=== PATIENT | female | born 1945 | race Caucasian/White ===

== ENCOUNTER 2022-05-19 16:13 | Inpatient (IN) | payer OTHER, SELFPAY ==
[2022-05-20] VITALS (9 sets, daily range): BP systolic 137–151; BP diastolic 57–67; PULSE 62–89; RESP 16–20; TEMP 36.6–37; O2SAT 91–96
--- NOTE | 2022-05-20 05:29 | PC.NURSE ---
Addendum entered by Soraya Regan RN 05/20/22 05:56: Pt NPO since 23405/19/22 Original Note: [id number] Pt slept well during night, denied pain, sob with activity/ambulation. Pt sats decreased to 82% with ambulation to br, bounced back to low 90's once at rest. required 1 LPM NC during noc to maintain sats >88%. Pt weight obtained using standing scare, weight-119.7#, unable to document in interventions at this time.
[2022-05-20] MEDS: LEVOTHYROXINE 50 MCG TABLET PO (06:37)
[2022-05-20] MEDS: OMEPRAZOLE 20 MG CAPSULE DR PO ×2 (06:38→17:29)
[2022-05-20] MEDS: ALBUTEROL SULFATE 2.5 MG/3 ML VIAL.NEB NEB ×2 (06:44→23:47)
[2022-05-20 06:48] LABS: Slide Review Reflex No
[2022-05-20 06:53] LABS: Hematocrit 34.4 % (33.0-51.0); Hemoglobin* 11.1 gm/dL (12.0-16.0); Immature Granulocytes Abs Auto 0.05 K/uL (0.00-0.30); Lymphocytes Percent Auto 16.6 % (20-44); Mean Corpuscular HGB Conc 32 gm/dL (32-36); Mean Corpuscular Hemoglobin 30 pg (26-34); Mean Corpuscular Volume 94 fL (80-100); Monocytes Percent Auto 2.3 % (0.0-11.0); Neutrophils Percent Auto 80.2 % (42.0-72.0); Platelet Count* 392 K/uL (140-440); RDW Coefficient of Variation % 13.3 % (11.5-15.5); Red Blood Count 3.65 m/uL (4.00-5.20); White Blood Count* 5.29 K/uL (4.50-11.00)
[2022-05-20 07:28] LABS: INR 2.57 (0.91-1.10)
[2022-05-20 07:31] LABS: C Reactive Protein* 14.4 mg/dL (0.5-1.0)
--- NOTE | 2022-05-20 07:31 | PM.IMPN1 ---
Progress Note: A&P Assessment and plan (1) Acute on chronic respiratory failure with hypoxia: Status: Acute Assessment and Plan: receive Solu-Medrol IV in the ED last night. Prednisone orally at 40 mg this morning. Will start taper when clinical stability has been achieved and hypoxia resolved continue doxycycline on 1 L nasal cannula O2 reviewed venous blood gas and chest x-ray from yesterday Chest x-ray, VBG and follow-up labs in the morning. 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 follows with pulmonology. 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 Restrictive pattern with mild obstructive pattern on PFTs, 2021. Status: Acute (3) On prednisone therapy: Status: Acute Assessment and Plan: Initial plan from her center mgr had been to decreased to 2.5 mg of prednisone q.o.d.. Right now she is back on 40 mg with a burst and taper likely. I suspect she will need more like 5 mg daily. (4) History of pulmonary embolism: Problem details: First occurrence 10/10, then 2018. Provoked and unprovoked. Chronic anticoagulation. History of DVTs as well. Status: Acute Assessment and Plan: INR 2.5 this morning. Restarting warfarin. No obvious bleeding source. Anticoagulation needed. Hemoglobin stable. (5) Pulmonary alveolar hemorrhage: Status: Resolved Assessment and Plan: Historical. Likely related to granulomatous disease. (6) Paroxysmal A-fib: Problem details: Rate controlled and on anticoagulation Status: Acute Assessment and Plan: Stable. (7) Hypertension: Status: Acute Assessment and Plan: Stable. (8) Hypothyroidism: Status: Acute Assessment and Plan: Stable. (9) Chronic kidney disease: Status: Acute Assessment and Plan: Stable. (10) Iron deficiency anemia: Status: Acute Assessment and Plan: Stable. (11) Aortic stenosis: Problem details: last echo 04/13. Normal EF. Normal right and left ventricular function. Aortic valve is sclerotic. Moderate stenosis. Peak gradient 27 mmHg. Status: Acute Plan No acute exacerbation noted. Time Spent With Patient Total time spent: Thirty-five. Subjective Interval history: Daily Progress Note - Hospital Medicine Day #: 2 CC: Hypoxic respiratory failure, history of interstitial lung disease OVERNIGHT UPDATES FROM STAFF & MED, LAB, IMAGING UPDATES patient reports feeling not much better - coughs with deep breath. no significant wheeze. no fever. we went over the dosing of her prednisone outpatient taper that now appears was not working well for her. HGB from ED was not confirmed on repeat labs. no obvious GI bleeding source. HGB this am is stable. EGD cancelled. warfarin restarted. RN note overnight [id number] Pt slept well during night, denied pain, sob with activity/ambulation. Pt sats decreased to 82% with ambulation to br, bounced back to low 90's once at rest. required 1 LPM NC during noc to maintain sats >88%. Pt weight obtained using standing scare, weight-119.7# Admission Labs and Imaging: White count was 12.2 Hemoglobin was 8.3, inexplicably 11.4 later the same evening CRP was 16.2 Iron deficient with a TIBC of 13, iron 336 Normal electrolytes, normal LFTs. Undetectable troponin Creatinine 1.3 INR 2.7 Venous blood gas was unremarkable, notably pCO2 was only 39 BNP 288 this morning: WBC 5.29 Hemoglobin 11.1 INR 2.57 CRP 14.4 Chest x-ray Cardiomegaly with bilateral interstitial opacities most likely pulmonary edema versus infection. No pleural effusions. Review of Systems: See subjective Cardiac: No new chest pain/pressure/palpitations. Respiratory: no new dyspnea. GI: No abdominal bloating Objective: Vitals: see above Lungs: Clear. No wheezing Cardiac: loud holosystolic murmur; radiates to both axilla. no edema. Disposition/Potential discharge - Likely to return to previous living situation. Total time is 35 minutes with greater than 50% spent in counseling and coordination of care. Exam Const: Vital Signs, click to edit/add: Vital Signs - 24 hr 05/20/22 03:00 05/20/22 05:22 Temperature 97.8 F Pulse Rate [Right Pulse Oximeter] 78 Respiratory Rate 16 18 Pulse Oximetry 96 92 Labs Labs: Laboratory Results - last 24 hr 05/20/22 05/20/22 05:55 05:55 WBC 5.29 RBC 3.65 L Hgb 11.1 L Hct 34.4 MCV 94 MCH 30 MCHC 32 RDW Coeff of Faustino 13.3 Plt Count 392 Neut % (Auto) 80.2 H Lymph % (Auto) 16.6 L [place] % (Auto) 2.3 Eos % (Auto) 0.0 Baso % (Auto) 0.0 Neut # (Auto) 4.20 Lymph # (Auto) 0.90 [place] # (Auto) 0.10 Eos # (Auto) 0.00 Baso # (Auto) 0.00 Abs Immat Gran (auto) 0.05 INR 2.57 H
[2022-05-20 08:17] LABS: Troponin I* < 0.01 ng/mL (0.01-0.04)
[2022-05-20] MEDS: METOPROLOL TARTRATE 100 MG TABLET PO ×2 (08:58→20:17)
[2022-05-20] MEDS: FERROUS SULFATE 325 MG TABLET PO (08:58)
[2022-05-20] MEDS: FOLIC ACID 1 MG TABLET PO (08:58)
[2022-05-20] MEDS: DOXYCYCLINE HYCLATE 100 MG CAPSULE PO ×2 (08:58→20:16)
[2022-05-20] MEDS: predniSONE 20 MG TABLET 40 MG PO (08:59)
[2022-05-20] MEDS: SPIRONOLACTONE 25 MG TABLET PO (09:00)
[2022-05-20] MEDS: dilTIAZem 180 MG CAP (CD) 360 MG PO (09:01)
[2022-05-20] MEDS: LACTATED RINGERS 1000 ML 1,000 ML 75 ML IV (12:09)
[2022-05-20 12:41] LABS: INR 2.28 (0.91-1.10); Prothrombin Time 25.5 Seconds
--- NOTE | 2022-05-20 13:57 | PC.NURSE ---
Pt calm and cooperative with nsg interventions. Voiding adequate amt. LR @75cc continued. Initially NPO for EGD which was cancelled when HGB stabilized today at 11.1. Advanced to Regular diet. Pt denies pain. Stool sample needed for hemoccult per miscellaneous order. Up with SBA of one with walker. Continue plan of care, report will be given to oncoming shift RN.
[2022-05-20 16:42] LABS: Chloride* 108 mmol/L (96-114); Potassium* 4.7 mmol/L (3.6-5.1); Sodium* 137 mmol/L (135-149)
[2022-05-20 16:45] LABS: Blood Urea Nitrogen* 27 mg/dL (7-30); Carbon Dioxide* 24 mmol/L (20-32); Estimated Glomerular Filt Rate 57.66
[2022-05-20 16:46] LABS: Glucose* 183 mg/dL (60-115)
[2022-05-20] MEDS: WARFARIN 2.5 MG TABLET PO (16:47)
[2022-05-20] MEDS: MONTELUKAST 10 MG TABLET PO (20:16)
--- NOTE | 2022-05-20 22:44 | PC.NURSE ---
Shift [id number]- Patient denies pain throughout shift. She is up to chair for meals and evening, walker and SBA. She remains on 1-1.5L O2 to keep oxygenation saturations >90%. She is pleasant and cooperative. She states deep breathing makes her feel as though she needs to cough.
[2022-05-21] VITALS (7 sets, daily range): BP systolic 120–173; BP diastolic 65–81; PULSE 50–77; RESP 18–26; TEMP 36.4–36.9; O2SAT 90–97
[2022-05-21] MEDS: LACTATED RINGERS 1000 ML 1,000 ML 75 ML IV (01:55)
--- NOTE | 2022-05-21 06:30 | PC.NURSE ---
[id number]: Patient cooperative with cares. Denies pain. C/o wheezing prn neb administered. Patient reported a little relief. SBA, walker. 1.5 Lt NC to keep O2 sats >90% during noc. Rested on and off during noc.
[2022-05-21] MEDS: LEVOTHYROXINE 50 MCG TABLET PO (06:37)
[2022-05-21] MEDS: OMEPRAZOLE 20 MG CAPSULE DR PO ×2 (06:38→17:26)
[2022-05-21 06:54] LABS: Slide Review Reflex No
[2022-05-21 06:56] LABS: HCO3 VBG 25 mmol/L (21-28); PCO2 VBG 40 mmHG (40-50); PO2 VBG 48.2 mmHG (25-47); pH VBG 7.403 (7.32-7.43)
--- NOTE | 2022-05-21 07:08 | XR_ITS ---
Final Report Patient: DENNIS KOCH Facility:?[facility] Patient ID:?[id number] Site Patient ID:?[id number]. Site :?1945 Study:?XRay Chest -05/21/2022 7:24:28 AM Ordering Physician:Chai Barrow Final Report: INDICATION: Hypoxia TECHNIQUE: Chest 1 views. COMPARISON: 05/19/2022. FINDINGS: Cardiovascular and mediastinum: Heart size and vasculature are normal in caliber and appearance. Lungs and pleural spaces: Interval increase in the bilateral patchy and interstitial lung opacities most prominent in the perihilar region. No pleural effusion or pneumothorax. Bones and soft tissues: No significant findings. Posterior spinal fusion hardware is unchanged. IMPRESSION: Interval increase in the bilateral interstitial and now patchy airspace opacities concerning for cardiogenic/noncardiogenic pulmonary edema and/or infection. Dictated by Hernan Naik MD @ 05/21/2022 7:47:50 AM (Electronic Signature)
--- NOTE | 2022-05-21 07:08 | XR_ITS ---
Final Report Patient: DENNIS KOCH Facility:?[facility] Patient ID:?[id number] Site Patient ID:?[id number]. Site :?1945 Study:?XRay Chest -05/21/2022 7:24:28 AM Ordering Physician:Chai Barrow Final Report: INDICATION: Hypoxia TECHNIQUE: Chest 1 views. COMPARISON: 05/19/2022. FINDINGS: Cardiovascular and mediastinum: Heart size and vasculature are normal in caliber and appearance. Lungs and pleural spaces: Interval increase in the bilateral patchy and interstitial lung opacities most prominent in the perihilar region. No pleural effusion or pneumothorax. Bones and soft tissues: No significant findings. Posterior spinal fusion hardware is unchanged. IMPRESSION: Interval increase in the bilateral interstitial and now patchy airspace opacities concerning for cardiogenic/noncardiogenic pulmonary edema and/or infection. Dictated by Hernan Naik MD @ 05/21/2022 7:47:50 AM ----- ADDENDUM ----- Correction PA and lateral views of the chest. Dictated by Hernan Naik MD @ May 22 2022 8:16AM (Electronic Signature)
[2022-05-21 07:10] LABS: Hematocrit 32.2 % (33.0-51.0); Hemoglobin* 10.4 gm/dL (12.0-16.0); Mean Corpuscular HGB Conc 32 gm/dL (32-36); Mean Corpuscular Hemoglobin 31 pg (26-34); Mean Corpuscular Volume 95 fL (80-100); Platelet Count* 446 K/uL (140-440); White Blood Count* 19.49 K/uL (4.50-11.00)
[2022-05-21 07:33] LABS: Chloride* 111 mmol/L (96-114); Potassium* 4.7 mmol/L (3.6-5.1); Sodium* 138 mmol/L (135-149)
[2022-05-21 07:36] LABS: Carbon Dioxide* 23 mmol/L (20-32); Creatinine* 0.9 mg/dL (0.5-1.5); Estimated Glomerular Filt Rate 65.44
[2022-05-21 07:37] LABS: Blood Urea Nitrogen* 29 mg/dL (7-30); Calcium* 9.8 mg/dL (8.4-10.6); Glucose* 114 mg/dL (60-115); Magnesium* 2.2 mg/dL (1.5-2.6)
[2022-05-21 07:40] LABS: C Reactive Protein* 5.5 mg/dL (0.5-1.0)
[2022-05-21 07:43] LABS: NT Pro B Type NatriureticPept* 2310 PG/mL (0-450)
[2022-05-21 08:04] LABS: Thyroid Stimulating Hormone* 0.143 uIU/mL (0.270-4.20)
[2022-05-21] MEDS: FERROUS SULFATE 325 MG TABLET PO (08:10)
[2022-05-21] MEDS: predniSONE 20 MG TABLET 40 MG PO (08:11)
[2022-05-21] MEDS: METOPROLOL TARTRATE 100 MG TABLET PO ×2 (09:04→20:50)
[2022-05-21] MEDS: dilTIAZem 180 MG CAP (CD) 360 MG PO (09:04)
[2022-05-21] MEDS: SPIRONOLACTONE 25 MG TABLET PO (09:04)
[2022-05-21] MEDS: FOLIC ACID 1 MG TABLET PO (09:04)
[2022-05-21] MEDS: DOXYCYCLINE HYCLATE 100 MG CAPSULE PO ×2 (09:04→20:50)
--- NOTE | 2022-05-21 09:06 | CT_ITS ---
Final Report Patient: DENNIS KOCH Facility:?[facility] Patient ID:?[id number] Site Patient ID:?[id number]. Site :?1945 Study:?CT Chest W/ 95CC ISOVUE-370 PE PROTOCOL-05/21/2022 11:00:33 AM Ordering Physician:Chai Barrow Final Report: INDICATION: Hypoxia. TECHNIQUE: CT chest PE was acquired with 95 cc Isovue 3 7 IV contrast. COMPARISON: Chest radiograph 05/21/2022. FINDINGS: Heart and vasculature: Cardiomegaly. Aortic and coronary atherosclerotic calcification. Mitral and aortic valve calcification. Lungs and pleural: Diffuse bilateral ground-glass opacities more prominent centrally with some relative peripheral sparing. No pleural effusion or pneumothorax. Mild bilateral bronchiectasis. Lymph nodes/mediastinum: Mildly prominent mediastinal and hilar lymph nodes. Chest wall: No masses. Upper abdomen: No acute or significant findings. Small hiatal hernia. Bones: T9 fracture with posterior spinal fusion hardware T7 through T11. Superior endplate Schmorl`s nodes T12, L1, L2. Chronic appearing mild compression deformities T2 and T5. IMPRESSION: 1. No evidence of pulmonary embolism. 2. Diffuse bilateral predominantly central ground-glass opacities may represent pulmonary edema and/or infection. No pleural effusions. 3. Coronary and aortic atherosclerosis. 4. Mild cardiomegaly. 5. Thoracic and lumbar compression fractures. Please note that all CT scans at this facility use dose modulation, iterative reconstruction, and/or weight-based dosing when appropriate to reduce radiation dose to as low as reasonably achievable. Dictated by Hernan Naik MD @ 05/21/2022 11:20:31 AM (Electronic Signature)
[2022-05-21] MEDS: ONDANSETRON ODT 4 MG TAB PO (09:14)
[2022-05-21] MEDS: FUROSEMIDE 10 MG/ML inj 40 MG IV (09:25)
[2022-05-21] MEDS: SODIUM CHLORIDE 0.9 % (FLUSH) 10 ML SYRINGE 5 ML IVF ×2 (09:25→20:50)
--- NOTE | 2022-05-21 11:53 | PM.IMPN1 ---
Progress Note: A&P Assessment and plan (1) Acute systolic heart failure due to valvular disease: Status: Acute Assessment and Plan: CT and chest x-ray this morning are most consistent with acute fluid overload. Stopped her fluids. I started her on IV Lasix. She got a single dose of 40 mg IV push this morning. I am starting her on 40 p.o. b.i.d. with 1st dose this afternoon. Her BNP had gone up significantly. Her procalcitonin was reassuring. (2) Aortic stenosis: Problem details: last echo 04/13. Normal EF. Normal right and left ventricular function. Aortic valve is sclerotic. Moderate stenosis. Peak gradient 27 mmHg. Status: Acute Assessment and Plan: Noted. (3) Acute on chronic respiratory failure with hypoxia: Status: Acute Assessment and Plan: Likely with valvular heart disease induced systolic acute heart failure in the background of chronic interstitial lung disease. Continue doxy. P.o. Lasix b.i.d.. Stop IV fluids.. 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 follows with pulmonology. 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 Restrictive pattern with mild obstructive pattern on PFTs, 2021. Status: Acute Assessment and Plan: On 40 mg of p.o. prednisone. She (5) On prednisone therapy: Status: Acute (6) Chronic kidney disease: Status: Acute (7) Hypothyroidism: Status: Acute Assessment and Plan: Any to follow-up with a free T4 Subjective Interval history: Daily Progress Note - Hospital Medicine Day #: 3 CC: Feels as if she is the same or worse. Still feels as if coughing and shortness of breath with any deep breath is difficult. No chest pain. Any significant sputum up OVERNIGHT UPDATES FROM STAFF & MED, LAB, IMAGING UPDATES 120/65, 165/78 Pulse rate 59 Respiratory rate 18 Pulse ox 97% on 2 L Weight is up to 56.8 from 54.2 kilos White blood cell count jumped significantly from 5.2-19.4. Likely related to large doses of corticosteroids. Hemoglobin has dropped 11.1-10.4 Platelet count is up to 446 INR is 2.28 Blood gas was stable this morning with a normal pH. No CO2 retention. Normal electrolytes, normal kidney function. CRP has down trended nicely from 14.4-5.5 Interestingly her BNP is up to over 2300. It was only 288 on admission. Procalcitonin is reassuring and does not increase my suspicion of a bacterial process. Chest x-ray from this morning IMPRESSION: Interval increase in the bilateral interstitial and now patchy airspace opacities concerning for cardiogenic/noncardiogenic pulmonary edema and/or infection. CT this morning IMPRESSION: 1. No evidence of pulmonary embolism. 2. Diffuse bilateral predominantly central ground-glass opacities may represent pulmonary edema and/or infection. No pleural effusions. 3. Coronary and aortic atherosclerosis. 4. Mild cardiomegaly. 5. Thoracic and lumbar compression fractures. Review of Systems: See subjective Cardiac: No new chest pain/pressure/palpitations. Respiratory: Worsening dyspnea, worsening cough GI: No abdominal bloating Objective: Looks tired. Looks chronically ill. Still alert and interactive with care plan. Vitals: see above Lungs: No wheezing but bilateral crackles. Cardiac: Holosystolic ejection murmur. No significant pedal edema. Disposition/Potential discharge - Likely to return to previous living situation. Total time is 35 minutes with greater than 50% spent in counseling and coordination of care. Exam Const: Vital Signs, click to edit/add: Vital Signs - 24 hr 05/20/22 12:21 05/20/22 15:16 05/20/22 15:30 Temperature 98.1 F 97.9 F Pulse Rate 64 Pulse Rate [Left A pical] 73 65 Pulse Rate [Right Pulse Oximeter] 73 Respiratory Rate 18 18 Blood Pressure [] 151/65 H 137/67 Pulse Oximetry 96 93 05/20/22 18:56 05/20/22 23:00 05/21/22 03:00 Temperature 98.1 F 98.0 F 98.1 F Pulse Rate 62 Pulse Rate [Left A pical] 70 Pulse Rate [Right Pulse Oximeter] 74 73 Respiratory Rate 18 20 22 Blood Pressure [] 151/60 H 150/64 H 173/69 H Pulse Oximetry 91 91 90 05/21/22 08:34 05/21/22 11:34 Temperature 98.3 F 98.1 F Pulse Rate 77 Pulse Rate [Left A pical] 74 61 Pulse Rate [Right Pulse Oximeter] Respiratory Rate 20 18 Blood Pressure [] 169/81 H 165/78 H Pulse Oximetry 95 92 Labs Labs: Laboratory Results - last 24 hr 05/20/22 05/20/22 05/21/22 05:55 11:58 06:24 WBC RBC Hgb Hct MCV MCH MCHC Plt Count INR 2.28 H VBG pH VBG pCO2 VBG pO2 VBG HCO3 Sodium 137 Potassium 4.7 Chloride 108 Carbon Dioxide 24 BUN 27 Creatinine 1.0 Estimated Creat Clear 33.30 Glucose 183 H Calcium 9.0 Magnesium C-Reactive Protein NT-Pro-B Natriuret Pep TSH 0.143 L 05/21/22 05/21/22 05/21/22 06:24 06:24 06:24 WBC 19.49 H RBC 3.40 L Hgb 10.4 L Hct 32.2 L MCV 95 MCH 31 MCHC 32 Plt Count 446 H INR VBG pH 7.403 VBG pCO2 40 VBG pO2 48.2 H VBG HCO3 25 Sodium 138 Potassium 4.7 Chloride 111 Carbon Dioxide 23 BUN 29 Creatinine 0.9 Estimated Creat Clear 33.30 Glucose 114 Calcium 9.8 Magnesium 2.2 C-Reactive Protein 5.5 H NT-Pro-B Natriuret Pep 2310 H TSH
[2022-05-21 13:44] LABS: Procalcitonin* 0.06 ng/mL (<0.50)
--- NOTE | 2022-05-21 14:08 | RESP.RT ---
Attempted to wean pt's oxygen today. She did not tolerate it, immediately began to desaturate less than 88%. Returned to 3L, for an SPO2 of 90% Suspect she will need home oxygen.
[2022-05-21] MEDS: WARFARIN 2.5 MG TABLET PO (16:55)
[2022-05-21] MEDS: FUROSEMIDE 40 MG TABLET PO (16:56)
--- NOTE | 2022-05-21 18:21 | PC.NURSE ---
Shift Summary: Patient pleasant and cooperative. Up with SBA, walker and gait belt. Voiding frequently due to lasix. Becomes SOB and o2 sats drop to 80% following ambulation, this has improved this evening. Patient has reported having more energy and is able to ambulate to bathroom and recovers quickly. Continues to use o2 @ 2L/NC. No c/o pain. Denies chest pain and nausea. IV saline locked. BM x1, guiac negative. Poor appetite in AM, this has improved throughout day, refused supplement this morning.
[2022-05-21 19:22] LABS: Procalcitonin* 0.07 ng/mL (<0.50)
[2022-05-21] MEDS: MONTELUKAST 10 MG TABLET PO (20:50)
--- NOTE | 2022-05-21 22:35 | PC.NURSE ---
Shift note [id number]: SBA with gb and walker. alert and oriented. calls appropriately. initially when meeting pt she was on 5L O2 via NC and her O2 sat was 97%, tapered pt down to 3L and pt maintained sats >88%. Pt desat after ambulating to BR to 73%, with rest pt recovered within 2 mins. Crackles auscultated bilat. Continuing to use manual BP cuff as the automatic is giving inaccurate readings.
[2022-05-22] VITALS (9 sets, daily range): BP systolic 122–155; BP diastolic 58–98; PULSE 52–66; RESP 16–20; TEMP 36–36.9; O2SAT 88–92
--- NOTE | 2022-05-22 05:58 | PC.NURSE ---
Pt pleasant and cooperative. Up with one and walker to the BR. Void but no stool. VSS. She is on 3L O2 NC. to maintain 89% and above. LS are course.
[2022-05-22] MEDS: LEVOTHYROXINE 50 MCG TABLET PO (06:34)
[2022-05-22] MEDS: OMEPRAZOLE 20 MG CAPSULE DR PO ×2 (06:35→18:45)
[2022-05-22 06:38] LABS: HCO3 VBG 31 mmol/L (21-28); PCO2 VBG 50 mmHG (40-50); PO2 VBG 41.6 mmHG (25-47); pH VBG 7.398 (7.32-7.43)
[2022-05-22 06:42] LABS: Hematocrit 34.5 % (33.0-51.0); Hemoglobin* 11.1 gm/dL (12.0-16.0); Immature Granulocytes Abs Auto 0.39 K/uL (0.00-0.30); Lymphocytes Percent Auto 11.7 % (20-44); Mean Corpuscular HGB Conc 32 gm/dL (32-36); Mean Corpuscular Hemoglobin 30 pg (26-34); Mean Corpuscular Volume 95 fL (80-100); Neutrophils Percent Auto 78.3 % (42.0-72.0); Platelet Count* 420 K/uL (140-440); RDW Coefficient of Variation % 13.6 % (11.5-15.5); Red Blood Count 3.65 m/uL (4.00-5.20); White Blood Count* 12.96 K/uL (4.50-11.00)
[2022-05-22 06:46] LABS: Slide Review Reflex No
[2022-05-22 07:06] LABS: Chloride* 104 mmol/L (96-114); Potassium* 4.3 mmol/L (3.6-5.1); Sodium* 138 mmol/L (135-149)
[2022-05-22 07:09] LABS: Creatinine* 1.2 mg/dL (0.5-1.5); Est. Creatinine Clearance* 27.75; Estimated Glomerular Filt Rate 46.33
[2022-05-22 07:10] LABS: Blood Urea Nitrogen* 37 mg/dL (7-30); Calcium* 9.3 mg/dL (8.4-10.6); Carbon Dioxide* 29 mmol/L (20-32); Glucose* 113 mg/dL (60-115)
[2022-05-22 07:15] LABS: Prothrombin Time 27.4 Seconds
[2022-05-22] MEDS: predniSONE 20 MG TABLET 40 MG PO (08:28)
[2022-05-22] MEDS: FERROUS SULFATE 325 MG TABLET PO (08:28)
[2022-05-22] MEDS: dilTIAZem 180 MG CAP (CD) 360 MG PO (08:31)
[2022-05-22] MEDS: SPIRONOLACTONE 25 MG TABLET PO (08:32)
[2022-05-22] MEDS: FOLIC ACID 1 MG TABLET PO (08:32)
[2022-05-22] MEDS: FUROSEMIDE 40 MG TABLET PO ×2 (08:32→18:44)
[2022-05-22] MEDS: METOPROLOL TARTRATE 100 MG TABLET PO ×2 (08:32→20:32)
[2022-05-22] MEDS: DOXYCYCLINE HYCLATE 100 MG CAPSULE PO ×2 (08:32→20:32)
[2022-05-22] MEDS: POTASSIUM CHLORIDE 10 MEQ CAPSULE ER 20 MEQ PO (08:36)
[2022-05-22] MEDS: SODIUM CHLORIDE 0.9 % (FLUSH) 10 ML SYRINGE 5 ML IVF ×2 (08:37→20:33)
[2022-05-22 09:46] LABS: NT Pro B Type NatriureticPept* 1750 PG/mL (0-450)
--- NOTE | 2022-05-22 16:03 | P.IMPN_ITS ---
Progress Note: A&P Assessment and plan (1) Acute systolic heart failure due to valvular disease: Status: Acute Assessment and Plan: continue with diuresis. She is getting 40 mg b.i.d. I am trending her creatinine and her potassium. They are stable, however do note a small bump in her creatinine. Tracking her daily weights and her oxygen dependence. (2) Aortic stenosis: Problem details: last echo 04/13. Normal EF. Normal right and left ventricular function. Aortic valve is sclerotic. Moderate stenosis. Peak gradient 27 mmHg. Status: Acute (3) Acute on chronic respiratory failure with hypoxia: Status: Acute Assessment and Plan: Related to CHF. Likely from her valvular disease (4) On prednisone therapy: Status: Acute Assessment and Plan: on 40 mg daily pulse dose. (5) Chronic kidney disease: Status: Acute Assessment and Plan: Stable but slightly increased creatinine. Trending. (6) History of pulmonary embolism: Problem details: First occurrence 10/10, then 2018. Provoked and unprovoked. Chronic anticoagulation. History of DVTs as well. Status: Acute Plan Back on her warfarin Subjective Interval history: Daily Progress Note - Hospital Medicine Day #: 4 Antibiotic day 2, doxycycline CC: SOB; CHF. History of ILD, severe aortic stenosis Feels as if she is the same. still complaining of cough and shortness of breath. Taking a deep breath is difficult. No significant sputum production. Vitals have been reviewed. She maintains her sats to 2 L of nasal cannula oxygen. Weight is down 0.2 kilos she is back on her warfarin she is on a burst dose of prednisone 40 mg daily I continue her on doxycycline CBC is stable, INR stable, ABG is stable BNP has decreased CRP is can a bouncing around from 14 down to 5 up to 7 Review of Systems: See subjective Cardiac: No new chest pain/pressure/palpitations. Respiratory: worse than baseline dyspnea and cough GI: No abdominal bloating Objective: Looks tired. Looks chronically ill. Still alert and interactive with care plan. Vitals: see above Lungs: No wheezing but bilateral crackles. Cardiac: Holosystolic ejection murmur. No significant pedal edema. Disposition/Potential discharge - Likely to return to previous living situation. Total time is 35 minutes with greater than 50% spent in counseling and coordination of care. Exam Const: Vital Signs, click to edit/add: Vital Signs - 24 hr 05/21/22 16:35 05/21/22 19:00 05/21/22 23:00 Temperature 97.6 F 98.4 F Pulse Rate 56 L 56 L Pulse Rate [Left A pical] 50 L 62 Pulse Rate [Right Pulse Oximeter] 62 Respiratory Rate 26 H 24 Blood Pressure [13 9/61] 120/70 145/70 H Pulse Oximetry 97 90 05/22/22 03:00 05/22/22 08:18 05/22/22 09:10 Temperature 96.8 F L 98.4 F Pulse Rate 59 L Pulse Rate [Left A pical] 56 L 66 Pulse Rate [Right Pulse Oximeter] Respiratory Rate 20 16 Blood Pressure [13 961] 150/72 H 155/68 H Pulse Oximetry 88 91 05/22/22 11:31 Temperature 98.1 F Pulse Rate Pulse Rate [Left A pical] 63 Pulse Rate [Right Pulse Oximeter] Respiratory Rate 18 Blood Pressure [13 961] 122/68 Pulse Oximetry 91 Labs Labs: Laboratory Results - last 24 hr 05/21/22 05/22/22 05/22/22 18:08 06:14 06:14 WBC RBC Hgb Hct MCV MCH MCHC RDW Coeff of Faustino Plt Count Neut % (Auto) Lymph % (Auto) [place] % (Auto) Eos % (Auto) Baso % (Auto) Neut # (Auto) Lymph # (Auto) [place] # (Auto) Eos # (Auto) Baso # (Auto) Abs Immat Gran (auto) INR VBG pH VBG pCO2 VBG pO2 VBG HCO3 Sodium 138 Potassium 4.3 Chloride 104 Carbon Dioxide 29 BUN 37 H Creatinine 1.2 Estimated Creat Clear 27.75 Glucose 113 Calcium 9.3 Magnesium 2.0 C-Reactive Protein 7.0 H NT-Pro-B Natriuret Pep 1750 H Procalcitonin 0.07 Free T4 1.10 05/22/22 05/22/22 05/22/22 06:14 06:14 06:14 WBC 12.96 H RBC 3.65 L Hgb 11.1 L Hct 34.5 MCV 95 MCH 30 MCHC 32 RDW Coeff of Faustino 13.6 Plt Count 420 Neut % (Auto) 78.3 H Lymph % (Auto) 11.7 L [place] % (Auto) 7.0 Eos % (Auto) 0.0 Baso % (Auto) 0.0 Neut # (Auto) 10.10 H Lymph # (Auto) 1.50 [place] # (Auto) 0.90 Eos # (Auto) 0.00 Baso # (Auto) 0.00 Abs Immat Gran (auto) 0.39 H INR 2.50 H VBG pH 7.398 VBG pCO2 50 VBG pO2 41.6 VBG HCO3 31 H Sodium Potassium Chloride Carbon Dioxide BUN Creatinine Estimated Creat Clear Glucose Calcium Magnesium C-Reactive Protein NT-Pro-B Natriuret Pep Procalcitonin Free T4
[2022-05-22] MEDS: WARFARIN 2.5 MG TABLET PO (18:43)
[2022-05-22] MEDS: MONTELUKAST 10 MG TABLET PO (20:32)
--- NOTE | 2022-05-22 22:37 | PC.NURSE ---
End of Shift: Patient pleasant and cooperative. Afebrile. SOB with activity. 2L O2 to keep sats above 90%. Sats decrease to mid 70s on O2 with activity but return to 88-90 within a few minutes. Denies pain. Up to bathroom and chair with 1 assist, walker and gait belt. Tolerating regular diet with no nausea. No BM this shift.
[2022-05-23] VITALS (9 sets, daily range): BP systolic 128–158; BP diastolic 62–90; PULSE 50–65; RESP 18–22; TEMP 36.2–36.8; O2SAT 88–94
--- NOTE | 2022-05-23 06:53 | PC.NURSE ---
shift note -: pt pleasant and cooperative. SBA with walker and gb. Urine output 900ml this shift. No BM. pt on 2L O2 via NC to maintain sats > 88%. pt desats to 75% when ambulating to BR, takes minutes to recover. Crackles auscultated in bilat bases. tele = sinus mekhi
[2022-05-23 07:24] LABS: Hemoglobin* 10.9 gm/dL (12.0-16.0); Mean Corpuscular HGB Conc 32 gm/dL (32-36); Mean Corpuscular Hemoglobin 30 pg (26-34); Mean Corpuscular Volume 95 fL (80-100); Platelet Count* 430 K/uL (140-440); Red Blood Count 3.58 m/uL (4.00-5.20)
[2022-05-23] MEDS: LEVOTHYROXINE 50 MCG TABLET PO (07:32)
[2022-05-23] MEDS: OMEPRAZOLE 20 MG CAPSULE DR PO ×2 (07:32→17:59)
[2022-05-23 07:44] LABS: Chloride* 100 mmol/L (96-114); Potassium* 4.4 mmol/L (3.6-5.1); Sodium* 138 mmol/L (135-149)
[2022-05-23 07:45] LABS: Slide Review Reflex No
[2022-05-23 07:47] LABS: Cholesterol* 210 mg/dL (90-199); Creatinine* 1.4 mg/dL (0.5-1.5); Est. Creatinine Clearance* 23.79; Estimated Glomerular Filt Rate 38.51
[2022-05-23 07:48] LABS: Blood Urea Nitrogen* 45 mg/dL (7-30); Calcium* 9.6 mg/dL (8.4-10.6); Carbon Dioxide* 34 mmol/L (20-32); Glucose* 110 mg/dL (60-115); HDL Cholesterol* 38 mg/dL (>=50); LDL Cholesterol Calculated 136 mg/dL (<100); Magnesium* 1.8 mg/dL (1.5-2.6); Triglycerides* 180 mg/dL (40-149)
[2022-05-23 07:50] LABS: C Reactive Protein* 6.3 mg/dL (0.5-1.0)
[2022-05-23 07:54] LABS: NT Pro B Type NatriureticPept* 1000 PG/mL (0-450)
[2022-05-23 09:13] LABS: Procalcitonin* 0.06 ng/mL (<0.50)
[2022-05-23] MEDS: FUROSEMIDE 40 MG TABLET 80 MG PO (09:29)
[2022-05-23] MEDS: SENNOSIDES 1 TAB TABLET 2 TAB PO ×2 (09:29→20:41)
[2022-05-23] MEDS: dilTIAZem 180 MG CAP (CD) 360 MG PO (09:29)
[2022-05-23] MEDS: FERROUS SULFATE 325 MG TABLET PO (09:29)
[2022-05-23] MEDS: POTASSIUM CHLORIDE 10 MEQ CAPSULE ER 20 MEQ PO (09:29)
[2022-05-23] MEDS: SPIRONOLACTONE 25 MG TABLET PO (09:29)
[2022-05-23] MEDS: METOPROLOL TARTRATE 100 MG TABLET PO ×2 (09:29→20:40)
[2022-05-23] MEDS: DOXYCYCLINE HYCLATE 100 MG CAPSULE PO ×2 (09:29→20:39)
[2022-05-23] MEDS: predniSONE 20 MG TABLET 40 MG PO (09:30)
[2022-05-23] MEDS: FOLIC ACID 1 MG TABLET PO (09:30)
[2022-05-23] MEDS: SODIUM CHLORIDE 0.9 % (FLUSH) 10 ML SYRINGE 5 ML IVF ×2 (09:34→20:42)
--- NOTE | 2022-05-23 10:42 | CRLHL7_ITS ---
For Patients: As a result of the Century Cures Act, medical imaging exams and procedure reports are released immediately into your electronic medical record. You may view this report before your referring provider. If you have questions, please contact your health care provider. INDICATION: Congestive heart failure. COMPARISON: A chest radiograph dated May 21, 2022 at 7:05 a.m. TECHNIQUE: Single-view study May 23, 2022 at 11:44 a.m. FINDINGS: TUBES AND LINES: None. HEART AND MEDIASTINUM: The heart size is normal. The mediastinal contour appears normal for patient age. LUNGS AND PLEURAL SPACES: Moderate to severe diffuse multifocal airspace disease unchanged. Primary differential considerations are an inflammatory process or the atypical appearance of edema.The pleural spaces are unremarkable. OSSEOUS STRUCTURES: Age-appropriate appearance. No acute focal finding.Postoperative changes of the spine. IMPRESSION: Moderate to severe diffuse multifocal airspace disease unchanged. Primary considerations are and inflammatory process or the atypical appearance of pulmonary edema. Dictated by João Duff MD @ 05/23/2022 1:03:51 PM (Electronically Signed)
--- NOTE | 2022-05-23 13:45 | PC.NURSE ---
SHIFT REPORT: PATIENT PLEASANT AND COOPERATIVE, ALERT AND ORIENTED, PATIENT ENCOURAGED TO SITE UP IN CHAIR FOR MEALS, DECLINED BREAKFAST, ATE 100% OF LUNCH, UP TO BATHROOM WITH SBA O2 SATS DROP TO THE MID 70S ON 2L WHILE WALKING TO BR, ON 4L PATIENT IS ABLE TO MAINTAIN MID 80S, RT AWARE OF OXYGEN NEEDS, RR 22 AFTER AMBULATION, X1 PATIENT EXPRESSED FEELING DIZZY WHEN AMBULATING BACK FROM BATHROOM, PASSED QUICKLY AND PATIENT HAS SINCE DECLINED DIZZINESS, TELE SHOWING SINUS HIEU/SINUS ARRHYTHMIA, GUAC NEG X2 TODAY FOR A TODAY OF 3 NEG GUAC.
[2022-05-23] MEDS: FUROSEMIDE 40 MG TABLET PO (16:04)
--- NOTE | 2022-05-23 16:31 | PM.IMPN1 ---
Progress Note: A&P Assessment and plan (1) Acute systolic heart failure due to valvular disease: Status: Acute Assessment and Plan: Diuresis ongoing. Weight is down. Creatinine is climbing. Potassium is stable. BNP is down trending. Will continue to follow labs and clinical response. I am concerned that she is on 4 L this afternoon. Repeat chest x-ray this morning shows essentially unchanged findings. However, this may represent her chronic interstitial lung disease verses pulmonary edema. She remains on 40 mg of prednisone for a total of 5 days, oncoming hospitalist can decide about either b.i.d. dosing or decreasing this in a taper. (2) Aortic stenosis: Problem details: last echo 04/13. Normal EF. Normal right and left ventricular function. Aortic valve is sclerotic. Moderate stenosis. Peak gradient 27 mmHg. Status: Acute Assessment and Plan: Stable. Echo was done in March of 2022, I did update this today. (3) Acute on chronic respiratory failure with hypoxia: Status: Acute Assessment and Plan: Mixed picture. Acute on chronic interstitial lung disease, acute systolic heart failure due to valvular disease. I do not think there is a bacterial pneumonia however I do continue her on doxycycline. Her procalcitonin is reassuring. Her CRP is down trending. Her leukocytosis could be related to steroids. She continues to cough and feel short of breath and gets dyspneic on exertion with a period of hypoxia. CT was more in favor of acute pulmonary edema. If her hypoxia worsens we should consult with Pulmonary Medicine. (4) On prednisone therapy: Status: Acute Assessment and Plan: On a 40 mg burst currently. (5) Chronic kidney disease: Status: Acute Assessment and Plan: Stable. (6) History of pulmonary embolism: Problem details: First occurrence 10/10, then 2018. Provoked and unprovoked. Chronic anticoagulation. History of DVTs as well. Status: Acute Assessment and Plan: INR therapeutic. Remains on oral anticoagulation. Time Spent With Patient Total time spent: Thirty-five. Subjective Interval history: Daily Progress Note - Hospital Medicine Day #: 5 Antibiotic day 3, doxycycline CC: SOB; CHF. History of ILD, severe aortic stenosis Unchanged reported symptoms: Feels as if she is the same. still complaining of cough and shortness of breath. Taking a deep breath is difficult. No significant sputum production. Vitals have been reviewed. Oxygen requirement has gone up throughout the day. She started at 2 L in and is now at 4 L. her weight is down just about 3 kg. 56.3 down to 53.6 she is back on her warfarin she is on a burst dose of prednisone 40 mg daily I continue her on doxycycline Leukocytosis has settled between 12 and 13. The 19.5 is considered related to the Solu-Medrol she received. On admission she was 5.29. Hemoglobin is stable at about 11. INR is stable at 2.5 Blood gas shows stability with a normal pH and no CO2 retention Creatinine is climbing given the much increasing diuresis, today 1.4 (however the labs listed as 63 it is likely 7/ and I confirmed this with lab) BMP is down trending [id number] CRP is down trending Procalcitonin is reassuring and has been trended Chest x-ray this morning Moderate to severe diffuse multifocal airspace disease unchanged. Primary considerations are and inflammatory process or the atypical appearance of pulmonary edema. Review of Systems: See subjective Cardiac: No new chest pain/pressure/palpitations. Respiratory: worse than baseline dyspnea and cough GI: No abdominal bloating Objective: Looks tired. Looks chronically ill. Still alert and interactive with care plan. Vitals: see above Lungs: No wheezing but bilateral crackles. Cardiac: Holosystolic ejection murmur. No significant pedal edema. Disposition/Potential discharge - Likely to return to previous living situation. Total time is 35 minutes with greater than 50% spent in counseling and coordination of care. Exam Const: Vital Signs, click to edit/add: Vital Signs - 24 hr 05/22/22 19:00 05/22/22 20:56 05/22/22 23:00 Temperature 98.1 F 98 F Pulse Rate 52 L Pulse Rate [Left A pical] 62 Pulse Rate [Right Pulse Oximeter] 54 L Respiratory Rate 20 20 Blood Pressure [Le ft Arm] 132/58 L 138/98 H Pulse Oximetry 92 92 92 05/23/22 03:20 05/23/22 08:33 05/23/22 11:32 Temperature 98 F 98.3 F 98.3 F Pulse Rate 56 L Pulse Rate [Left A pical] Pulse Rate [Right Pulse Oximeter] 56 L 60 59 L Respiratory Rate 20 22 Blood Pressure [Le ft Arm] 158/90 H 130/70 130/63 Pulse Oximetry 91 93 88 Labs Labs: Laboratory Results - last 24 hr 05/22/22 05/23/22 06:22 06:22 WBC 13.50 H RBC 3.58 L Hgb 10.9 L Hct 34.0 MCV 95 MCH 30 MCHC 32 Plt Count 430 Sodium 138 Potassium 4.4 Chloride 100 Carbon Dioxide 34 H BUN 45 H Creatinine 1.4 Estimated Creat Clear 23.79 Glucose 110 Calcium 9.6 Magnesium 1.8 C-Reactive Protein 6.3 H NT-Pro-B Natriuret Pep 1000 H Triglycerides 180 H Cholesterol 210 H LDL Cholesterol, Calc 136 H HDL Cholesterol 38 L Procalcitonin 0.06
[2022-05-23 17:07] LABS: HCO3 VBG 31 mmol/L (21-28); Lactate* 1.6 mmol/L (0.5-1.9); PCO2 VBG 47 mmHG (40-50); PO2 VBG 35.4 mmHG (25-47); pH VBG 7.431 (7.32-7.43)
[2022-05-23 17:14] LABS: INR 2.21 (0.91-1.10); Prothrombin Time 24.9 Seconds
[2022-05-23 17:25] LABS: Magnesium* 1.8 mg/dL (1.5-2.6)
[2022-05-23] MEDS: WARFARIN 2.5 MG TABLET PO (17:57)
--- NOTE | 2022-05-23 19:42 | PC.NURSE ---
Pt up with SBA and walker, tolerated reg diet 100%. She had Echo with results to MD. Continues on 2L O2 94%.
[2022-05-23] MEDS: MONTELUKAST 10 MG TABLET PO (20:39)
[2022-05-24] VITALS (7 sets, daily range): BP systolic 108–142; BP diastolic 58–80; PULSE 50–77; RESP 16–20; TEMP 36.2–36.8; O2SAT 92–99
--- NOTE | 2022-05-24 05:05 | PC.NURSE ---
SHIFT NOTE [id number]: PT CALM AND COOPERATIVE. PT AMBULATES WITH WALKER, GB, SBA. PT VSS WITH THE USE OF 2L NC SUPPLEMENTAL OXYGEN TO MAINTAIN SATS >90%. PT DENIES CHEST PAIN AND N/V. PT C/O CHEST FEELING HEAVY. PT DOES BECOME SOB WITH EXERTION AND DESATS INTO HIGH 70'S. PT RECOVERS WITH O2 TEMPORARILY ON 4L NC. TELE READS SINUS BRADYCARDIA. LS WITH POSTERIOR BILATERAL CRACKLES.
[2022-05-24] MEDS: LEVOTHYROXINE 50 MCG TABLET PO (06:31)
[2022-05-24] MEDS: OMEPRAZOLE 20 MG CAPSULE DR PO ×2 (06:31→17:14)
[2022-05-24 07:18] LABS: Eosinophils Percent Auto 0.1 % (0.0-7.0); HCO3 VBG 35 mmol/L (21-28); Hematocrit 35.3 % (33.0-51.0); Hemoglobin* 11.4 gm/dL (12.0-16.0); Immature Granulocytes Abs Auto 0.36 K/uL (0.00-0.30); Lymphocytes Percent Auto 13.6 % (20-44); Mean Corpuscular HGB Conc 32 gm/dL (32-36); Mean Corpuscular Hemoglobin 30 pg (26-34); Mean Corpuscular Volume 94 fL (80-100); Monocytes Percent Auto 7.7 % (0.0-11.0); Neutrophils Percent Auto 75.7 % (42.0-72.0); PCO2 VBG 51 mmHG (40-50); PO2 VBG 37.4 mmHG (25-47); Platelet Count* 453 K/uL (140-440); RDW Coefficient of Variation % 13.1 % (11.5-15.5); Red Blood Count 3.77 m/uL (4.00-5.20); White Blood Count* 12.32 K/uL (4.50-11.00); pH VBG 7.443 (7.32-7.43)
[2022-05-24 07:24] LABS: Slide Review Reflex No
[2022-05-24 07:48] LABS: Albumin* 3.5 g/dL (3.3-5.0); Chloride* 98 mmol/L (96-114)
[2022-05-24 07:49] LABS: Potassium* 5.2 mmol/L (3.6-5.1); Sodium* 135 mmol/L (135-149)
[2022-05-24 07:51] LABS: Alanine Aminotransferase* 13 U/L (4-35); Alkaline Phosphatase* 48 U/L (40-150); Aspartate Amino Transferase* 23 U/L (12-35); Bilirubin Total* 0.5 mg/dL (0.1-1.5); Carbon Dioxide* 33 mmol/L (20-32); Creatinine* 1.3 mg/dL (0.5-1.5); Est. Creatinine Clearance* 25.62; Estimated Glomerular Filt Rate 42.09; Total Protein* 6.4 g/dL (6.0-8.3)
[2022-05-24 07:52] LABS: Blood Urea Nitrogen* 60 mg/dL (7-30); Calcium* 9.5 mg/dL (8.4-10.6); Glucose* 116 mg/dL (60-115)
[2022-05-24 07:54] LABS: C Reactive Protein* 5.1 mg/dL (0.5-1.0)
[2022-05-24 07:59] LABS: NT Pro B Type NatriureticPept* 465 PG/mL (0-450)
[2022-05-24 08:05] LABS: Troponin I* < 0.01 ng/mL (0.01-0.04)
[2022-05-24 08:08] LABS: INR 2.21 (0.91-1.10); Prothrombin Time 24.9 Seconds
[2022-05-24] MEDS: METOPROLOL TARTRATE 100 MG TABLET PO ×2 (09:09→21:29)
[2022-05-24] MEDS: DOXYCYCLINE HYCLATE 100 MG CAPSULE PO ×2 (09:09→21:29)
[2022-05-24] MEDS: POTASSIUM CHLORIDE 10 MEQ CAPSULE ER 20 MEQ PO (09:09)
[2022-05-24] MEDS: FERROUS SULFATE 325 MG TABLET PO (09:09)
[2022-05-24] MEDS: FOLIC ACID 1 MG TABLET PO (09:09)
[2022-05-24] MEDS: dilTIAZem 180 MG CAP (CD) 360 MG PO (09:10)
[2022-05-24] MEDS: SENNOSIDES 1 TAB TABLET 2 TAB PO (09:10)
[2022-05-24] MEDS: SPIRONOLACTONE 25 MG TABLET PO (09:10)
[2022-05-24] MEDS: FUROSEMIDE 40 MG TABLET 80 MG PO (09:10)
[2022-05-24] MEDS: SODIUM CHLORIDE 0.9 % (FLUSH) 10 ML SYRINGE 5 ML IVF ×2 (09:10→21:31)
[2022-05-24] MEDS: predniSONE 20 MG TABLET PO (10:03)
--- NOTE | 2022-05-24 15:54 | PM.IMPN1 ---
Progress Note: A&P Assessment and plan (1) Acute systolic heart failure due to valvular disease: Status: Acute Assessment and Plan: Weight gradually stabilizing. Continue with diuresis efforts. Nevertheless still has new hypoxemic respiratory failure and is now requiring 4 L of oxygen per minute via nasal cannula continuously to maintain oxygen saturations 90% or higher at rest. (2) Aortic stenosis: Problem details: last echo 04/13. Normal EF. Normal right and left ventricular function. Aortic valve is sclerotic. Moderate stenosis. Peak gradient 27 mmHg. Status: Acute Assessment and Plan: Consider cardiology consultation in the near future. (3) Acute on chronic respiratory failure with hypoxia: Problem details: Multifactorial secondary to interstitial lung disease and heart failure, at minimum Status: Acute Assessment and Plan: For while was on 2 L oxygen per minute via nasal cannula continuously yesterday. Today she is requiring 4 L oxygen per minute nasal cannula to maintain oxygen saturations 90% or higher. Continue to monitor here in the hospital as we continue with our diuresis efforts and our efforts to manage underlying lung disease as much as we can. (4) On prednisone therapy: Problem details: Prior to this hospitalization had been on a tapering dose of 5 mg alternating with 2.5 mg every other day. Receiving this in association with underlying pulmonary interstitial lung disease and COPD. Status: Acute Assessment and Plan: Begin effort to slowly taper this. (5) Chronic kidney disease: Status: Acute (6) History of pulmonary embolism: Problem details: First occurrence 10/10, then 2018. Provoked and unprovoked. Chronic anticoagulation. History of DVTs as well. 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 follows with pulmonology. 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 Restrictive pattern with mild obstructive pattern on PFTs, 2021. Status: Acute (8) Hypertension: Status: Acute (9) Paroxysmal A-fib: Problem details: Rate controlled and on anticoagulation Status: Acute (10) Hypothyroidism: Status: Acute (11) Iron deficiency anemia: Status: Acute Plan Patient wondered about the possibility of transferring to a assisted facility for transitional care services. At this juncture we do not have availability for such. Will continue to support her as we currently are and monitoring her response. Time Spent With Patient Total time spent: 50 minutes Subjective Time Seen by Provider: 08:30 Date Seen: 05/24/22 Interval history: Hospital day number 6. For a while she was receiving 2 L of oxygen per minute via nasal cannula yesterday and doing all right with that. During the night she required 4 liters/minute via nasal cannula and she has been on that since. She feels better when she receives the oxygen. She notes her saturations drop when she gets up to go to the bathroom. Does take her a while catch her breath, perhaps 2-3 minutes after she gets up and goes to the bathroom or returns to her bed. She denies any chest heaviness, pressure, tightness, or pain. Notes a sense of dizziness if she moves too quickly. Still anxious about possibly having to go home alone, on oxygen therapy. She does tell me that she has previously been on oxygen therapy at home with a concentrator. She asked me if there is availability for her to be transferred to a assisted facility for transitional care services. I confer with our charge nurse who indicates to me that they have been monitoring this and that currently there are no beds available for her. Exam Narrative: Exam Narrative: She appears comfortable. Nevertheless she is certainly anxious when talking about the possibility of going home. She is articulate cooperative. Alert and oriented to person, place, time, situation. Mood and affect are congruent. Moves all 4 extremities. Cranial nerves 2-12 grossly intact. Independent transfer, station, and gait. Her neck is supple. Midline trachea. No JVD, hepatojugular reflux, or carotid bruits. Lungs with bibasilar end inspiratory rales, right greater than left. No wheezing or rhonchi. Heart tones with regular rhythm, normal S1-S2. Abdomen with active bowel sounds, soft, nontender. Extremities without edema. Capillary refill less than 3 seconds. Skin is warm, dry, intact. No cyanosis, petechiae, or rash. Const: Vital Signs, click to edit/add: Vital Signs - 24 hr 05/23/22 16:00 05/23/22 19:48 05/23/22 20:08 Temperature 97.2 F L 98.1 F Pulse Rate 59 L Pulse Rate [Left A pical] Pulse Rate [Right Pulse Oximeter] 65 63 Respiratory Rate 18 18 Blood Pressure [Le ft Arm] 128/78 128/62 Pulse Oximetry 94 94 05/23/22 23:00 05/23/22 23:15 05/24/22 03:00 Temperature 97.7 F 98.1 F Pulse Rate 50 L Pulse Rate [Left A pical] Pulse Rate [Right Pulse Oximeter] 65 64 Respiratory Rate 22 20 Blood Pressure [Le ft Arm] 158/65 H 142/65 H Pulse Oximetry 89 94 05/24/22 07:00 05/24/22 09:23 05/24/22 11:00 Temperature 98.3 F 97.2 F L Pulse Rate 50 L Pulse Rate [Left A pical] 59 L 61 Pulse Rate [Right Pulse Oximeter] 59 L Respiratory Rate 20 16 Blood Pressure [Le ft Arm] 108/70 124/58 L Pulse Oximetry 99 92 Labs Labs: Laboratory Results - last 24 hr 05/23/22 05/23/22 05/23/22 16:49 16:49 16:49 WBC RBC Hgb Hct MCV MCH MCHC RDW Coeff of Faustino Plt Count Neut % (Auto) Lymph % (Auto) Alexander % (Auto) Eos % (Auto) Baso % (Auto) Neut # (Auto) Lymph # (Auto) Alexander # (Auto) Eos # (Auto) Baso # (Auto) Abs Immat Gran (auto) INR 2.21 H VBG pH 7.431 H VBG pCO2 47 VBG pO2 35.4 VBG HCO3 31 H Sodium Potassium Chloride Carbon Dioxide BUN Creatinine Estimated Creat Clear Glucose Lactate 1.6 Calcium Magnesium 1.8 Total Bilirubin AST ALT Alkaline Phosphatase Troponin I C-Reactive Protein NT-Pro-B Natriuret Pep Total Protein Albumin 05/24/22 05/24/22 05/24/22 06:17 06:17 06:17 WBC 12.32 H RBC 3.77 L Hgb 11.4 L Hct 35.3 MCV 94 MCH 30 MCHC 32 RDW Coeff of Faustino 13.1 Plt Count 453 H Neut % (Auto) 75.7 H Lymph % (Auto) 13.6 L Alexander % (Auto) 7.7 Eos % (Auto) 0.1 Baso % (Auto) 0.0 Neut # (Auto) 9.30 H Lymph # (Auto) 1.70 Alexander # (Auto) 0.90 Eos # (Auto) 0.00 Baso # (Auto) 0.00 Abs Immat Gran (auto) 0.36 H INR 2.21 H VBG pH VBG pCO2 VBG pO2 VBG HCO3 Sodium 135 Potassium 5.2 H Chloride 98 Carbon Dioxide 33 H BUN 60 H Creatinine 1.3 Estimated Creat Clear 25.62 Glucose 116 H Lactate Calcium 9.5 Magnesium 2.0 Total Bilirubin 0.5 AST 23 ALT 13 Alkaline Phosphatase 48 Troponin I < 0.01 L C-Reactive Protein 5.1 H NT-Pro-B Natriuret Pep 465 H Total Protein 6.4 Albumin 3.5 05/24/22 06:17 WBC RBC Hgb Hct MCV MCH MCHC RDW Coeff of Faustino Plt Count Neut % (Auto) Lymph % (Auto) Alexander % (Auto) Eos % (Auto) Baso % (Auto) Neut # (Auto) Lymph # (Auto) Alexander # (Auto) Eos # (Auto) Baso # (Auto) Abs Immat Gran (auto) INR VBG pH 7.443 H VBG pCO2 51 H VBG pO2 37.4 VBG HCO3 35 H Sodium Potassium Chloride Carbon Dioxide BUN Creatinine Estimated Creat Clear Glucose Lactate Calcium Magnesium Total Bilirubin AST ALT Alkaline Phosphatase Troponin I C-Reactive Protein NT-Pro-B Natriuret Pep Total Protein Albumin
[2022-05-24] MEDS: WARFARIN 2.5 MG TABLET PO (16:27)
[2022-05-24] MEDS: FUROSEMIDE 40 MG TABLET PO (16:27)
--- NOTE | 2022-05-24 18:24 | PC.NURSE ---
Pt encouraged to increase activity to sit up at meals. She ate 2 meals this shift, 75-100%. She rested in bed most of the shift. She c/o dizziness with a 10cc neg. Gastroccult emesis at 1230. Pt increased to 3l o2 and after an hour denies dizziness when up to BR.
[2022-05-24] MEDS: MONTELUKAST 10 MG TABLET PO (21:29)
[2022-05-25] VITALS (9 sets, daily range): BP systolic 116–162; BP diastolic 58–80; PULSE 54–73; RESP 20–21; TEMP 36.3–36.8; O2SAT 92–96
--- NOTE | 2022-05-25 05:29 | PC.NURSE ---
SHIFT NOTE [id number]: UNEVENTFUL SHIFT. PT CALM AND COOPERATIVE. VSS AND WNL ON 2L NC. PT DESATS ON 2L NC TO 70'S WITH ACTIVITY. O2 INCREASED TO 5L NC x2MIN TO RECOVER O2 SATS TO >90%, THEN PLACED BACK AT 2L. TELE READS SINUS ARRHYTHMIA. LS NOTED TO HAVE BIBASILAR CRACKLES. AMBULATES WITH WALKER, GB, SBA.
[2022-05-25] MEDS: OMEPRAZOLE 20 MG CAPSULE DR PO ×3 (06:42→22:55)
[2022-05-25] MEDS: LEVOTHYROXINE 50 MCG TABLET PO (06:42)
[2022-05-25 07:06] LABS: INR 2.11 (0.91-1.10)
[2022-05-25] MEDS: FERROUS SULFATE 325 MG TABLET PO (08:13)
[2022-05-25] MEDS: predniSONE 20 MG TABLET PO (08:13)
[2022-05-25] MEDS: POTASSIUM CHLORIDE 10 MEQ CAPSULE ER 20 MEQ PO (11:18)
[2022-05-25] MEDS: dilTIAZem 180 MG CAP (CD) 360 MG PO (11:18)
[2022-05-25] MEDS: SPIRONOLACTONE 25 MG TABLET PO (11:18)
[2022-05-25] MEDS: METOPROLOL TARTRATE 100 MG TABLET PO ×2 (11:19→22:54)
[2022-05-25] MEDS: FOLIC ACID 1 MG TABLET PO (11:20)
[2022-05-25] MEDS: FUROSEMIDE 40 MG TABLET 80 MG PO (11:20)
[2022-05-25] MEDS: SODIUM CHLORIDE 0.9 % (FLUSH) 10 ML SYRINGE 5 ML IVF ×2 (11:20→21:28)
--- NOTE | 2022-05-25 16:09 | PM.IMPN1 ---
Progress Note: A&P Assessment and plan (1) Acute systolic heart failure due to valvular disease: Status: Acute Assessment and Plan: Stable on current regimen. Continue with furosemide as presently instituted. (2) Aortic stenosis: Problem details: last echo 04/13. Normal EF. Normal right and left ventricular function. Aortic valve is sclerotic. Moderate stenosis. Peak gradient 27 mmHg. Status: Acute Assessment and Plan: Will benefit from Cardiology consultation in the outpatient setting. (3) Acute on chronic respiratory failure with hypoxia: Problem details: Multifactorial secondary to interstitial lung disease and heart failure, at minimum Status: Acute Assessment and Plan: Still stabilizing. It is possible she may be ready for discharge in the next 24-48 hours. (4) On prednisone therapy: Problem details: Prior to this hospitalization had been on a tapering dose of 5 mg alternating with 2.5 mg every other day. Receiving this in association with underlying pulmonary interstitial lung disease and COPD. Status: Acute Assessment and Plan: Decreasing her dose. (5) Chronic kidney disease: Status: Acute (6) History of pulmonary embolism: Problem details: First occurrence 10/10, then 2018. Provoked and unprovoked. Chronic anticoagulation. History of DVTs as well. 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 follows with pulmonology. 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 Restrictive pattern with mild obstructive pattern on PFTs, 2021. Status: Acute Assessment and Plan: Now requiring oxygen therapy, steroids. (8) Hypertension: Status: Acute (9) Paroxysmal A-fib: Problem details: Rate controlled and on anticoagulation Status: Acute (10) Hypothyroidism: Status: Acute (11) Iron deficiency anemia: Status: Acute Plan Answered patient's questions are satisfaction. She is certainly less anxious than she was previously. I am inclined to believe this is in part and adjustment reaction with anxiety. Time Spent With Patient Total time spent: 30 minutes Subjective Interval history: Hospital day number 7. she is once again only requiring 2 L of oxygen per minute via nasal cannula yesterday and doing all right with that. No longer requiring higher oxygen flow rates. She feels better when she receives the oxygen. Does not have dyspnea when transferring from bed to chair. Does have dyspnea when transferring from bed to bathroom. She No longer has oxygen saturations drop when she gets up to go to the bathroom when on 2 liters/minute via nasal cannula. Catching her breath in 1-3 minutes after she gets up and goes to the bathroom or returns to her bed. She denies any chest heaviness, pressure, tightness, or pain. Notes a sense of dizziness if she moves too quickly. Still anxious about possibly having to go home alone, on oxygen therapy. She does tell me that she has previously been on oxygen therapy at home with a concentrator. There are still no beds available for her for transitional care services at this time. Exam Narrative: Exam Narrative: She is awake, alert, articulate, cooperative. Less anxious today than she was yesterday about the possibility of returning home. Mood and affect are congruent. Neck is supple. No obvious JVD, hepatojugular reflux, or carotid bruits. On auscultation of her lungs, she still has end inspiratory rales bilaterally. Heart tones with regular rhythm, normal S1-S2. Extremities without edema. No cyanosis. Palpable upper and lower extremity pulses. Independent transfer, station, and gait. Does become winded with positional changes and with ambulation efforts. No tremor, asterixis, or ataxia. Skin is warm, dry, intact. Const: Vital Signs, click to edit/add: Vital Signs - 24 hr 05/24/22 19:00 05/24/22 23:00 05/25/22 01:04 Temperature 97.5 F L 98.3 F Pulse Rate 61 Pulse Rate [Left A pical] 72 Pulse Rate [Right Pulse Oximeter] 68 77 Respiratory Rate 20 18 Blood Pressure [Le ft Arm] 138/65 136/66 Pulse Oximetry 93 96 05/25/22 04:15 05/25/22 08:32 05/25/22 08:44 Temperature 98.0 F 97.3 F L Pulse Rate 54 L Pulse Rate [Left A pical] Pulse Rate [Right Pulse Oximeter] 65 67 Respiratory Rate 20 21 Blood Pressure [Le ft Arm] 130/62 121/60 Pulse Oximetry 92 94 05/25/22 12:15 Temperature 97.5 F L Pulse Rate Pulse Rate [Left A pical] Pulse Rate [Right Pulse Oximeter] 73 Respiratory Rate 20 Blood Pressure [Le ft Arm] 116/80 Pulse Oximetry 94 Labs Labs: Laboratory Results - last 24 hr 05/25/22 06:12 INR 2.11 H
[2022-05-25] MEDS: FUROSEMIDE 40 MG TABLET PO (17:30)
[2022-05-25] MEDS: WARFARIN 2.5 MG TABLET PO (17:31)
--- NOTE | 2022-05-25 20:13 | PC.NURSE ---
-19: pt. up w/SBA and walker. Med times adjusted to later start in day d/t nausea from pills, per pt. Only eating 1 meal per day, few snacks. Reminded on need for activity and sitting up in chair throughout the day. Walked in armas, O2 sats maintained for approximately 3 minutes before dropping to 85-86% on 2L NC, became SOB w/walking but recovered within 1-2 minutes at rest. Tolerated room air while asleep for nearly 30 minutes, w/sats low 90s. Otherwise, O2 at 1-2L/min to maintain sats above 90%, 3L w/activity per RT. Pt. denied pain, other issues. Tele maintains mekhi arrhythmia in 50s-80s. Pt. had 3 visitors today.
[2022-05-25] MEDS: MONTELUKAST 10 MG TABLET PO (21:27)
[2022-05-25] MEDS: DOXYCYCLINE HYCLATE 100 MG CAPSULE PO (22:54)
[2022-05-26] VITALS (14 sets, daily range): BP systolic 64–181; BP diastolic 49–81; PULSE 56–73; RESP 16–22; TEMP 36.1–37.1; O2SAT 90–94
--- NOTE | 2022-05-26 06:34 | PC.NURSE ---
[id number]: Patient cooperative with cares. Weaned O2 from 2 Lt NC to 1 Lt NC while at rest. 3 Lt NC with movement. A1, walker, GB. Denies pain. Patient had an episode of lightheadedness/dizziness when up to the BR at 0330 even with 3 Lt NC. Patient was given a chair to sit on and recovered quickly. O2 when back to bed was 91% on 3 Lt. Transformer Coil Winder tapered O2 down to 1 Lt NC for the remainder of noc which patient maintained O2 >90%.
[2022-05-26 07:58] LABS: Albumin* 3.8 g/dL (3.3-5.0); Chloride* 96 mmol/L (96-114); Eosinophils Percent Auto 0.6 % (0.0-7.0); Hematocrit 40.1 % (33.0-51.0); Hemoglobin* 12.9 gm/dL (12.0-16.0); Immature Granulocytes Abs Auto 0.64 K/uL (0.00-0.30); Lymphocytes Percent Auto 12.2 % (20-44); Mean Corpuscular HGB Conc 32 gm/dL (32-36); Mean Corpuscular Hemoglobin 30 pg (26-34); Mean Corpuscular Volume 94 fL (80-100); Monocytes Percent Auto 9.7 % (0.0-11.0); Neutrophils Percent Auto 73.3 % (42.0-72.0); Platelet Count* 500 K/uL (140-440); Potassium* 4.9 mmol/L (3.6-5.1); RDW Coefficient of Variation % 12.9 % (11.5-15.5); Red Blood Count 4.27 m/uL (4.00-5.20); Sodium* 134 mmol/L (135-149); White Blood Count* 15.11 K/uL (4.50-11.00)
[2022-05-26 08:01] LABS: Blood Urea Nitrogen* 87 mg/dL (7-30); Carbon Dioxide* 33 mmol/L (20-32); Creatinine* 2.1 mg/dL (0.5-1.5); Est. Creatinine Clearance* 15.86; Estimated Glomerular Filt Rate 23.67; Glucose* 113 mg/dL (60-115); Phosphorus* 3.9 mg/dL (2.5-4.5)
[2022-05-26 08:02] LABS: Calcium* 9.2 mg/dL (8.4-10.6)
[2022-05-26 08:04] LABS: INR 2.18 (0.91-1.10); Prothrombin Time 24.7 Seconds
[2022-05-26 08:17] LABS: HCO3 VBG 34 mmol/L (21-28); Lactate* 1.2 mmol/L (0.5-1.9); PCO2 VBG 53 mmHG (40-50); PO2 VBG 23.4 mmHG (25-47); pH VBG 7.414 (7.32-7.43)
[2022-05-26] MEDS: predniSONE 20 MG TABLET PO (08:38)
[2022-05-26] MEDS: FERROUS SULFATE 325 MG TABLET PO (08:38)
[2022-05-26] MEDS: SODIUM CHLORIDE 0.9 % (FLUSH) 10 ML SYRINGE 5 ML IVF ×2 (08:39→21:10)
[2022-05-26 08:49] LABS: Slide Review Reflex No
[2022-05-26] MEDS: 0.9 % SODIUM CHLORIDE 500 ML 500 ML IV (09:39)
[2022-05-26] MEDS: POTASSIUM CHLORIDE 10 MEQ CAPSULE ER 20 MEQ PO (11:02)
[2022-05-26] MEDS: dilTIAZem 180 MG CAP (CD) 360 MG PO (11:02)
[2022-05-26] MEDS: SENNOSIDES 1 TAB TABLET 2 TAB PO ×2 (11:03→21:10)
[2022-05-26] MEDS: SPIRONOLACTONE 25 MG TABLET PO (11:04)
[2022-05-26] MEDS: FOLIC ACID 1 MG TABLET PO (11:04)
[2022-05-26] MEDS: METOPROLOL TARTRATE 100 MG TABLET PO (11:04)
[2022-05-26] MEDS: OMEPRAZOLE 20 MG CAPSULE DR PO ×2 (11:04→22:52)
[2022-05-26] MEDS: LEVOTHYROXINE 50 MCG TABLET PO (11:04)
[2022-05-26] MEDS: DOXYCYCLINE HYCLATE 100 MG CAPSULE PO ×2 (11:09→22:52)
--- NOTE | 2022-05-26 12:37 | PM.IMPN1 ---
Progress Note: A&P Assessment and plan (1) Acute systolic heart failure due to valvular disease: Status: Acute Assessment and Plan: She is overly diuresed. Her serum creatinine and BUN are both elevated. She is now orthostatic. Stop her diuretics today. Consider resuming at a lower dose tomorrow. Normal saline IV fluid boluses. She is already doing much better with our initiation of this. Monitor orthostatic blood pressures and pulses. (2) Aortic stenosis: Problem details: last echo 04/13. Normal EF. Normal right and left ventricular function. Aortic valve is sclerotic. Moderate stenosis. Peak gradient 27 mmHg. Status: Acute Assessment and Plan: She is quite symptomatic from being orthostatic. Will need to reconsider the dosing of the furosemide. On hold for today. Possibly much lower dose starting tomorrow. Currently she is not on JORI-inhibitor. Will consider adding low-dose JORI-inhibitor in the setting of aortic stenosis. Ultimately results of our medical intervention efforts will determine the timing of a cardiology consultation. (3) Acute on chronic respiratory failure with hypoxia: Problem details: Multifactorial secondary to interstitial lung disease and heart failure, at minimum Status: Acute Assessment and Plan: Still requiring low-flow oxygen. Based on the fact that she is significantly symptomatically orthostatic with our diuresis efforts, this suggests to me that the main driving force of her new hypoxemic failure is related to her interstitial lung disease. (4) On prednisone therapy: Problem details: Prior to this hospitalization had been on a tapering dose of 5 mg alternating with 2.5 mg every other day. Receiving this in association with underlying pulmonary interstitial lung disease and COPD. Status: Acute Assessment and Plan: I will decrease the dose of her steroid to 5 mg daily starting today. She received 1 week worth of prednisone at much higher doses than usual. Was on 40 mg daily for about 5 days then 20 mg daily for another 2 days. (5) Chronic kidney disease: Status: Acute Assessment and Plan: Much worse with our diuresis efforts. Will recheck renal function panel tomorrow after we have had a chance to hold heard furosemide and to administer IV saline. (6) History of pulmonary embolism: Problem details: First occurrence 10/10, then 2018. Provoked and unprovoked. Chronic anticoagulation. History of DVTs as well. Status: Acute Assessment and Plan: Known to have factor 5 Leiden deficiency. Continue with anticoagulation efforts with warfarin. INR goal of 2-3. 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 follows with pulmonology. 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 Restrictive pattern with mild obstructive pattern on PFTs, 2021. Status: Acute Assessment and Plan: Continue with oxygen support. Decrease dose of prednisone from 20 mg daily down to 5 mg daily. (8) Hypertension: Status: Acute Assessment and Plan: I will consider adding a low-dose JORI-inhibitor to her regimen possibly as early as tomorrow depending how she does with rehydration efforts. (9) Paroxysmal A-fib: Problem details: Rate controlled and on anticoagulation Status: Acute Assessment and Plan: Rate well controlled on current rate-controlling agents, diltiazem. Continue with anticoagulation. (10) Hypothyroidism: Status: Acute Assessment and Plan: Continue with supportive efforts. (11) Iron deficiency anemia: Status: Acute Plan Answered patient's questions to her satisfaction. She is not ready for discharge today. Time Spent With Patient Total time spent: 40 minutes Subjective Time Seen by Provider: 09:00 Date Seen: 05/26/22 Interval history: Hospital day number 8. She is requiring 1-2 L of oxygen per minute via nasal cannula to maintain saturations greater than 88%. No longer requiring higher oxygen flow rates. She feels better when she receives the oxygen. The big thing today is that she notes a sense of orthostasis. Does not have dyspnea when transferring from bed to chair. Does have dyspnea when transferring from bed to bathroom. She still does not have oxygen saturations drop when she gets up to go to the bathroom when on 2 liters/minute via nasal cannula supplementation. She denies any chest heaviness, pressure, tightness, or pain. Still anxious about the possibly of having to go home alone on oxygen therapy. She does tell me that she has previously been on oxygen therapy at home with a concentrator. There are still no beds available for her for transitional care services at this time. Exam Narrative: Exam Narrative: When laying still she appears comfortable. She becomes quite lightheaded when she attempts to set up. More anxious today. No acute distress. Alert. Oriented to self, place, time, situation. Cooperative. Mood and affect are congruent. No JVD or hepatojugular reflux. Lungs with rales bibasilarly, right more so than left. No wheezing or rhonchi. Chest wall excursions are full. Heart tones with regular rhythm, normal S1-S2. Soft systolic murmur noted. Abdomen with active bowel sounds, soft, nontender. No organomegaly or masses. Extremities without edema. Skin is warm, dry, and intact. Const: Vital Signs, click to edit/add: Vital Signs - 24 hr 05/25/22 16:00 05/25/22 19:00 05/25/22 20:00 Temperature 98 F 98.2 F Pulse Rate Pulse Rate [Right Pulse Oximeter] 62 60 Pulse Rate [orthos tatic lying Left P ulse Oximeter] Pulse Rate [orthos tatic sitting Left Pulse Oximeter] Pulse Rate [orthos tatic standing Lef t Pulse Oximeter] Respiratory Rate 20 20 20 Blood Pressure [Le ft Arm] 118/58 L 162/60 H Blood Pressure [or thostatic lying Le ft Arm] Blood Pressure [or thostatic sitting Left Arm] Blood Pressure [or thostatic standing Left Arm] Pulse Oximetry 96 94 94 05/25/22 23:00 05/26/22 00:00 05/26/22 03:00 Temperature 97.5 F L Pulse Rate 56 L Pulse Rate [Right Pulse Oximeter] 69 Pulse Rate [orthos tatic lying Left P ulse Oximeter] Pulse Rate [orthos tatic sitting Left Pulse Oximeter] Pulse Rate [orthos tatic standing Lef t Pulse Oximeter] Respiratory Rate 18 20 Blood Pressure [Le ft Arm] 152/69 H Blood Pressure [or thostatic lying Le ft Arm] Blood Pressure [or thostatic sitting Left Arm] Blood Pressure [or thostatic standing Left Arm] Pulse Oximetry 92 93 05/26/22 04:00 05/26/22 07:14 05/26/22 07:51 Temperature 97.8 F Pulse Rate 56 L Pulse Rate [Right Pulse Oximeter] 61 Pulse Rate [orthos tatic lying Left P ulse Oximeter] Pulse Rate [orthos tatic sitting Left Pulse Oximeter] Pulse Rate [orthos tatic standing Lef t Pulse Oximeter] Respiratory Rate 22 22 Blood Pressure [Le ft Arm] 135/65 Blood Pressure [or thostatic lying Le ft Arm] Blood Pressure [or thostatic sitting Left Arm] Blood Pressure [or thostatic standing Left Arm] Pulse Oximetry 94 90 05/26/22 07:54 05/26/22 07:57 05/26/22 08:27 Temperature 97.0 F L Pulse Rate Pulse Rate [Right Pulse Oximeter] 61 61 Pulse Rate [orthos tatic lying Left P ulse Oximeter] 59 L Pulse Rate [orthos tatic sitting Left Pulse Oximeter] 67 Pulse Rate [orthos tatic standing Lef t Pulse Oximeter] 65 Respiratory Rate 18 18 Blood Pressure [Le ft Arm] 127/64 Blood Pressure [or thostatic lying Le ft Arm] 122/57 L Blood Pressure [or thostatic sitting Left Arm] 116/81 Blood Pressure [or thostatic standing Left Arm] 64/49 L Pulse Oximetry 90 05/26/22 08:29 05/26/22 11:18 05/26/22 12:22 Temperature 96.9 F L Pulse Rate Pulse Rate [Right Pulse Oximeter] 59 L 60 Pulse Rate [orthos tatic lying Left P ulse Oximeter] 68 Pulse Rate [orthos tatic sitting Left Pulse Oximeter] 70 Pulse Rate [orthos tatic standing Lef t Pulse Oximeter] 73 Respiratory Rate 22 20 Blood Pressure [Le ft Arm] 181/69 H 122/54 L Blood Pressure [or thostatic lying Le ft Arm] 121/55 L Blood Pressure [or thostatic sitting Left Arm] 103/49 L Blood Pressure [or thostatic standing Left Arm] 99/68 Pulse Oximetry 91 91 Documenting provider has reviewed patient's vital signs: yes Labs Labs: Laboratory Results - last 24 hr 05/26/22 05/26/22 05/26/22 06:16 06:16 06:16 WBC 15.11 H RBC 4.27 Hgb 12.9 Hct 40.1 MCV 94 MCH 30 MCHC 32 RDW Coeff of Faustino 12.9 Plt Count 500 H Neut % (Auto) 73.3 H Lymph % (Auto) 12.2 L [place] % (Auto) 9.7 Eos % (Auto) 0.6 Baso % (Auto) 0.0 Neut # (Auto) 11.10 H Lymph # (Auto) 1.80 [place] # (Auto) 1.50 H Eos # (Auto) 0.10 Baso # (Auto) 0.00 Abs Immat Gran (auto) 0.64 H INR 2.18 H VBG pH VBG pCO2 VBG pO2 VBG HCO3 Sodium 134 L Potassium 4.9 Chloride 96 Carbon Dioxide 33 H BUN 87 H Creatinine 2.1 H Estimated Creat Clear 15.86 Glucose 113 Lactate Calcium 9.2 Phosphorus 3.9 Albumin 3.8 05/26/22 07:57 WBC RBC Hgb Hct MCV MCH MCHC RDW Coeff of Faustino Plt Count Neut % (Auto) Lymph % (Auto) [place] % (Auto) Eos % (Auto) Baso % (Auto) Neut # (Auto) Lymph # (Auto) [place] # (Auto) Eos # (Auto) Baso # (Auto) Abs Immat Gran (auto) INR VBG pH 7.414 VBG pCO2 53 H VBG pO2 23.4 L VBG HCO3 34 H Sodium Potassium Chloride Carbon Dioxide BUN Creatinine Estimated Creat Clear Glucose Lactate 1.2 Calcium Phosphorus Albumin
[2022-05-26] MEDS: 0.9 % SODIUM CHLORIDE 250 ml 250 ML IV (13:11)
--- NOTE | 2022-05-26 13:49 | PC.NURSE ---
End of Shift. ? Pt has been pleasant.? no pain this shift. she is up to BSC with 1 assist. she is dizzy and lightheaded/Dizziness today and almost passed out with Orth BP. O2, 1 L NC while at rest.? 3 L NC with movement.? she is up with 1 assist, walker, GB.? md was updated and 2 boluses where given 500 and 250. [place] BP x2 and 0600 for tomorrow am. Pt has been up to BSC and chair today. the dizziness/lightheadedness is better after fluids [place] ? Patient was given a chair to sit on and recovered quickly.? O2 when back to bed was 91% on 3 Lt.? Warm In Worker tapered O2 down to 1 Lt NC for the remainder of noc which patient maintained O2 >90%.
--- NOTE | 2022-05-26 16:45 | RESP.RT ---
Patient is currently on 1L NC at rest and requires 3L NC to keep SATs at 90% with activity. Patient had Home O2 3 years ago. She has her PCP at [facility] and would like to have her Home O2 set up through [employer].
[2022-05-26] MEDS: WARFARIN 2.5 MG TABLET PO (17:22)
--- NOTE | 2022-05-26 18:24 | PC.NURSE ---
End of Shift: Patient pleasant and cooperative. Patient with soft BP 108/57 but vitally stable, lungs course anteriorly and posteriorly, right side worse. BS WNL, IV SL. Patient is SBA, walker, to bedside commode. Patient denies pain this shift. Patient tolerating regular diet eating 75% of dinner in chair. Patient on 1 L NS with sats 90-92%.
[2022-05-26] MEDS: MONTELUKAST 10 MG TABLET PO (21:09)
--- NOTE | 2022-05-26 22:15 | PC.NURSE ---
Shift Summary [id number]: Patient pleasant and cooperative. Up with one assist, walker and gait belt. Self ambulated from recliner to bed during this shift, reminded to use call light, bed alarm in place. Vitals stable and WNL. C/o discomfort on bottom, offered barrier cream and encouraged repositioning, patient refused both. Patient able to make frequent position changes in bed herself. Continues to have 02 @ 1L/NC.
[2022-05-27] VITALS (16 sets, daily range): BP systolic 119–148; BP diastolic 45–79; PULSE 58–83; RESP 16–24; TEMP 36–36.6; O2SAT 80–96
--- NOTE | 2022-05-27 04:22 | PC.NURSE ---
Addendum entered by Curtis Liu RN 05/27/22 04:28: Murmur noted. Tele NSR 59-66bpm. Dr. Lynch updated at 2300 and Lopressor held for heart rate. Is tolerating fluids overnite. Declines to wear SCDs d/t some neuropathic type symptoms to L/Es. Abdomen is generally tender to light palpation chronic per pt. Original Note: VSS 1.5LNC, tapered to 0.5LNC at 0400. Lungs have faint crackles to bases, no significant cough and denies SOB when up to BR w/SBA AND WALKER NITIN WELL IND W/CARES
[2022-05-27 06:57] LABS: INR 2.03 (0.91-1.10); Prothrombin Time 23.4 Seconds
[2022-05-27] MEDS: FERROUS SULFATE 325 MG TABLET PO (08:03)
[2022-05-27 08:14] LABS: Eosinophils Percent Auto 0.7 % (0.0-7.0); Hematocrit 35.5 % (33.0-51.0); Hemoglobin* 11.3 gm/dL (12.0-16.0); Immature Granulocytes Abs Auto 0.65 K/uL (0.00-0.30); Lymphocytes Percent Auto 11.3 % (20-44); Mean Corpuscular HGB Conc 32 gm/dL (32-36); Mean Corpuscular Hemoglobin 30 pg (26-34); Mean Corpuscular Volume 94 fL (80-100); Monocytes Percent Auto 10.8 % (0.0-11.0); Neutrophils Percent Auto 72.6 % (42.0-72.0); Platelet Count* 440 K/uL (140-440); RDW Coefficient of Variation % 12.9 % (11.5-15.5); Red Blood Count 3.77 m/uL (4.00-5.20); White Blood Count* 14.11 K/uL (4.50-11.00)
[2022-05-27 08:24] LABS: Chloride* 103 mmol/L (96-114)
[2022-05-27 08:25] LABS: Albumin* 3.2 g/dL (3.3-5.0); Potassium* 4.7 mmol/L (3.6-5.1); Sodium* 135 mmol/L (135-149)
[2022-05-27 08:27] LABS: Carbon Dioxide* 32 mmol/L (20-32); Creatinine* 1.4 mg/dL (0.5-1.5); Est. Creatinine Clearance* 23.79; Estimated Glomerular Filt Rate 38.51
[2022-05-27 08:28] LABS: Blood Urea Nitrogen* 63 mg/dL (7-30); Calcium* 8.6 mg/dL (8.4-10.6); Glucose* 110 mg/dL (60-115); Phosphorus* 2.9 mg/dL (2.5-4.5)
[2022-05-27] MEDS: predniSONE 5 MG TABLET PO (08:31)
[2022-05-27] MEDS: SODIUM CHLORIDE 0.9 % (FLUSH) 10 ML SYRINGE 5 ML IVF ×2 (08:32→20:35)
[2022-05-27 08:45] LABS: Slide Review Reflex Yes
[2022-05-27 08:47] LABS: Slide Review Acceptable Review (Acceptable)
[2022-05-27] MEDS: SENNOSIDES 1 TAB TABLET 2 TAB PO ×2 (10:35→20:34)
[2022-05-27] MEDS: SPIRONOLACTONE 25 MG TABLET PO (10:35)
[2022-05-27] MEDS: DOXYCYCLINE HYCLATE 100 MG CAPSULE PO ×2 (10:35→22:52)
[2022-05-27] MEDS: OMEPRAZOLE 20 MG CAPSULE DR PO ×2 (10:35→22:52)
[2022-05-27] MEDS: dilTIAZem 180 MG CAP (CD) 360 MG PO (10:35)
[2022-05-27] MEDS: LEVOTHYROXINE 50 MCG TABLET PO (10:35)
[2022-05-27] MEDS: FOLIC ACID 1 MG TABLET PO (10:35)
[2022-05-27] MEDS: POTASSIUM CHLORIDE 10 MEQ CAPSULE ER 20 MEQ PO (10:35)
[2022-05-27] MEDS: METOPROLOL TARTRATE 100 MG TABLET PO ×2 (10:36→22:52)
--- NOTE | 2022-05-27 12:22 | P.IMPN_ITS ---
Progress Note: A&P Assessment and plan (1) Acute systolic heart failure due to valvular disease: Status: Acute Assessment and Plan: It appears his has resolved tremendously since she has been in the hospital. Yesterday stopped her furosemide that she was receiving 80 mg in the morning and 40 mg in the afternoon. This was because of her intravascular volume depletion. Did benefit from 750 mL of normal saline IV. No longer orthostatic. I am restarting her furosemide at 20 mg p.o. every morning today. It is unclear to me how much this is contributing to her hypoxemic respiratory failure. The fact that she is only requiring a small amount of oxygen now suggests that possibly the heart failure is contributing to her hypoxemic respiratory failure. (2) Aortic stenosis: Problem details: last echo 04/13. Normal EF. Normal right and left ventricular function. Aortic valve is sclerotic. Moderate stenosis. Peak gradient 27 mmHg. Status: Acute Assessment and Plan: Will need outpatient Cardiology consultation. (3) Acute on chronic respiratory failure with hypoxia: Problem details: Multifactorial secondary to interstitial lung disease and heart failure, at minimum Status: Acute Assessment and Plan: Will assess for home O2 needs today. We have a new medical record system. We are working on how to write a pr escription to satisfy her home O2 needs. (4) On prednisone therapy: Problem details: Prior to this hospitalization had been on a tapering dose of 5 mg alternating with 2.5 mg every other day. Receiving this in association with underlying pulmonary interstitial lung disease and COPD. Status: Acute (5) Chronic kidney disease: Status: Acute Assessment and Plan: She had an acute kidney injury from overzealous diuresis which is now improving. Continue monitoring. (6) History of pulmonary embolism: Problem details: First occurrence 10/10, then 2018. Provoked and unprovoked. Chronic anticoagulation. History of DVTs as well. 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 follows with pulmonology. 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 Restrictive pattern with mild obstructive pattern on PFTs, 2021. Status: Acute (8) Hypertension: Status: Acute (9) Paroxysmal A-fib: Problem details: Rate controlled and on anticoagulation Status: Acute (10) Hypothyroidism: Status: Acute (11) Iron deficiency anemia: Status: Acute Plan Answered patient's questions to her satisfaction. She expresses understanding and desire to proceed as specified. Time Spent With Patient Total time spent: 30 minutes Subjective Time Seen by Provider: 08:15 Date Seen: 05/27/22 Interval history: Hospital day number 9. She is now only requiring 1 L of oxygen per minute via nasal cannula at rest to maintain saturations greater than 88%. No longer requiring higher oxygen flow rates. She feels better when she receives the oxygen supplementation. Her complaint of orthostasis is resolved today compared to yesterday. I did need to administer 750 mL of normal saline intravenously and held her furosemide throughout the day yesterday. Does not have dyspnea when transferring from bed to chair. Does have dyspnea when transferring from bed to bathroom. She still does not have oxygen saturations drop when she gets up to go to the bathroom when receiving oxygen supplementation. She denies any chest heaviness, pressure, tightness, or pain. Still anxious about the possibly of having to go home alone on oxygen therapy. She does tell me that she has previously been on oxygen therapy at home with a concentrator. There are still no beds available for her for transitional care services at this time. Exam Narrative: Exam Narrative: No longer orthostatic as she was yesterday. She has less lassitude today than yesterday. Nevertheless she is interactive and talkative. Tells me she is able to stand up and walk to the bathroom and back without getting lightheaded or short of breath with her oxygen supplementation on today. Cooperative, friendly. Articulate. Alert and oriented to self, place, time, situation. Lungs with bibasilar rales, no wheezing or rhonchi. Heart tones with regular rhythm. Systolic murmur unchanged. Abdomen with active bowel sounds, soft, nontender. Extremities without edema. Moves all 4 extremities. Walks independently. Const: Vital Signs, click to edit/add: Vital Signs - 24 hr 05/26/22 15:10 05/26/22 15:33 05/26/22 19:10 Temperature 98.4 F 98.7 F Pulse Rate 57 L Pulse Rate [Left A pical] 64 Pulse Rate [Right Pulse Oximeter] 58 L Pulse Rate [orthos tatic lying Left P ulse Oximeter] Pulse Rate [orthos tatic sitting Left Pulse Oximeter] Pulse Rate [orthos tatic standing Lef t Pulse Oximeter] Respiratory Rate 20 16 Blood Pressure [Le ft Arm] 108/57 L 133/61 Blood Pressure [or thostatic lying Le ft Arm] Blood Pressure [or thostatic sitting Left Arm] Blood Pressure [or thostatic standing Left Arm] Pulse Oximetry 90 93 05/27/22 00:12 05/27/22 00:22 05/27/22 00:26 Temperature 97.2 F L Pulse Rate 59 L Pulse Rate [Left A pical] 60 60 Pulse Rate [Right Pulse Oximeter] Pulse Rate [orthos tatic lying Left P ulse Oximeter] Pulse Rate [orthos tatic sitting Left Pulse Oximeter] Pulse Rate [orthos tatic standing Lef t Pulse Oximeter] Respiratory Rate 16 16 Blood Pressure [Le ft Arm] 142/65 H Blood Pressure [or thostatic lying Le ft Arm] Blood Pressure [or thostatic sitting Left Arm] Blood Pressure [or thostatic standing Left Arm] Pulse Oximetry 93 05/27/22 04:06 05/27/22 07:00 05/27/22 08:00 Temperature 97.5 F L 97.7 F Pulse Rate 58 L Pulse Rate [Left A pical] 66 Pulse Rate [Right Pulse Oximeter] 70 70 Pulse Rate [orthos tatic lying Left P ulse Oximeter] Pulse Rate [orthos tatic sitting Left Pulse Oximeter] Pulse Rate [orthos tatic standing Lef t Pulse Oximeter] Respiratory Rate 16 24 24 Blood Pressure [Le ft Arm] 146/65 H 128/62 Blood Pressure [or thostatic lying Le ft Arm] Blood Pressure [or thostatic sitting Left Arm] Blood Pressure [or thostatic standing Left Arm] Pulse Oximetry 96 92 05/27/22 08:19 05/27/22 11:03 Temperature 98 F Pulse Rate Pulse Rate [Left A pical] Pulse Rate [Right Pulse Oximeter] 74 Pulse Rate [orthos tatic lying Left P ulse Oximeter] 83 Pulse Rate [orthos tatic sitting Left Pulse Oximeter] 77 Pulse Rate [orthos tatic standing Lef t Pulse Oximeter] 65 Respiratory Rate 20 Blood Pressure [Le ft Arm] 131/79 Blood Pressure [or thostatic lying Le ft Arm] 133/73 Blood Pressure [or thostatic sitting Left Arm] 119/69 Blood Pressure [or thostatic standing Left Arm] 125/73 Pulse Oximetry 93 Labs Labs: Laboratory Results - last 24 hr 05/27/22 05/27/22 05/27/22 06:11 06:11 06:11 WBC 14.11 H RBC 3.77 L Hgb 11.3 L Hct 35.5 MCV 94 MCH 30 MCHC 32 RDW Coeff of Faustino 12.9 Plt Count 440 Neut % (Auto) 72.6 H Lymph % (Auto) 11.3 L [place] % (Auto) 10.8 Eos % (Auto) 0.7 Baso % (Auto) 0.0 Neut # (Auto) 10.20 H Lymph # (Auto) 1.60 [place] # (Auto) 1.50 H Eos # (Auto) 0.10 Baso # (Auto) 0.00 Abs Immat Gran (auto) 0.65 H Diff Slide Review Acceptable Review INR 2.03 H Sodium 135 Potassium 4.7 Chloride 103 Carbon Dioxide 32 BUN 63 H Creatinine 1.4 Estimated Creat Clear 23.79 Glucose 110 Calcium 8.6 Phosphorus 2.9 Albumin 3.2 L
[2022-05-27] MEDS: FUROSEMIDE 20 MG TABLET PO (14:24)
--- NOTE | 2022-05-27 14:54 | NUTR.NU ---
RDN with MD nutrition consult for nutritional intake probably inadequate. RDN visited with resident whom said the meals have been good. She does not eat 3 meals at home, only two due to a low appetite which is normal for her. She typically eats scrambled eggs and grilled cheese sandwiches. She has tried supplements in the past but does not like them. She reports a usual body weight of ~117 lbs and reports her weight has been stable recently. She had no concerns or questions at this time. Current weight 115 lbs; Admit weight 119 lbs; Height 60 inches; Current BMI is normal at 22.5 kg/m2. No nutrition interventions at this time. RDN will continue to monitor and follow-up prn.
--- NOTE | 2022-05-27 14:54 | RESP.3PART ---
3 Part Home O2 Testing Summary RT 3 Part Home O2 Testing Summary Start: 05/26/22 08:28 Freq: Status: Active Protocol: Document 05/27/22 09:49 DIANNE (Rec: 05/27/22 09:56 DIANNE [id number]) 3 Part Home O2 Testing Summary The following is a summary of the 3 Part O2 Testing Evaluation Date/Time of Testing Date 05/27/22 Time 09:50 Step 1 SAT on room air at rest (%) 86 Step 2 SAT on room air while exercising (%) 80 Step 3 SAT on supplemental O2 while exercising 90 (%) Liters of supplemental O2 needed while 3 exercising (L) O2 Delivery O2 delivered via Nasal Cannula Comments Comments Pt is requiring 3L of oxygen for exercising Pt is requiring 1L of oxygen at rest to maintain saturations above 88%. Pt is active and will require portability.
--- NOTE | 2022-05-27 15:10 | PC.SOCIAL ---
Met with pt. to discuss discharge plans. Pt. lives in her own home alone and has been independent with cares. Pt. has two friends that stop 2x a day or so and especially in the evening to help with pet care(pt. has 9 cats), cleaning, and meals. Pt. feels it has been going well at home. Pt. states she has had oxygen a few years ago through [employer] but none recently. If. pt. needs oxygen at discharge she has no preference on a vendor. Pt. does not have lifeline but states she has her cell phone neat her at all times. Pt. did well with PT and OT today. No further PT needs but OT may recommend home care if pt. needs oxygen at discharge due to managing her tank. Pt. did talk about getting groceries delivered and having her friends get them in the home for her. Pt. has 9 stairs to enter the main landing. Pt. is uncertain on how she will manage her INR blood draws at the clinic at this time. social services assistant will continue to work on nay discharge planning needs.
[2022-05-27] MEDS: WARFARIN 2.5 MG TABLET PO (16:55)
--- NOTE | 2022-05-27 18:02 | PC.NURSE ---
Addendum entered by Liya Bloom RN 05/27/22 18:55: pt stated she felt a little nauseous after eating, PRN shanna núñez. Original Note: shift note -: pt much more talkative today! SBA with walker. pt calls appropriately. pt ordered a late breakfast and lunch (no dinner), but did eat 100% of her meals. pt requiring 1L O2 and maintaining sats 90-93%. with activity O2 is increased to 4L, maintaining sats >88%. LS clear, dim in bilat bases. VSS. Tele = sinus mekhi.
[2022-05-27] MEDS: ONDANSETRON ODT 4 MG TAB PO (18:43)
[2022-05-27] MEDS: MONTELUKAST 10 MG TABLET PO (20:34)
[2022-05-28] VITALS (9 sets, daily range): BP systolic 81–175; BP diastolic 44–75; PULSE 58–91; RESP 16–22; TEMP 36.1–36.7; O2SAT 90–95
--- NOTE | 2022-05-28 04:45 | PC.NURSE ---
VSS 1LNC. Tele NSR/SA. Murmur noted. Lungs clear/diminished provided IS used to 750 and AEROBIKA because it was already sort of in the interventions. Declines SCDs as previously. Had some slight nausea at 0400 check and declined intervention. Abdomen generally tender to light palpation chronic per pt same as last night. Up to BR w/walker and SBA vishal well ind w/cares. Tolerating diet.
[2022-05-28 06:59] LABS: INR 1.95 (0.91-1.10); Prothrombin Time 22.7 Seconds
[2022-05-28] MEDS: predniSONE 5 MG TABLET PO (08:28)
[2022-05-28] MEDS: FERROUS SULFATE 325 MG TABLET PO (08:28)
[2022-05-28] MEDS: SODIUM CHLORIDE 0.9 % (FLUSH) 10 ML SYRINGE 5 ML IVF ×2 (08:29→20:31)
[2022-05-28] MEDS: 0.9 % SODIUM CHLORIDE 500 ML 500 ML IV (09:05)
--- NOTE | 2022-05-28 10:24 | NUTR.NU ---
RDN with verbal MD order for nutrition consult. RDN visited with patient whom agreed to diet education. RDN educated patient on the importance of a general, healthy diet including fruits and vegetables, grains, dairy, and protein at each meal. Discussed appropriate portion sizes and fluid intake. Recommended patient have at least 6 cups of fluid daily (1250 mL), or more. Patient stated she does not drink a lot of fluid, however she does like hot chocolate and had 2 cups this morning. Patient reports only eating 2 meals daily. RDN encouraged 3 balanced meals per day, and if patient is only able to eat 2 meals daily, to include frequent snacks daily to help meet estimated needs. Handout provided of my plate business continuity planner. Patient had no questions or concerns at this time. Per nursing, patient may be discharging to SNF. RDN will monitor and follow-up prn.
[2022-05-28] MEDS: OMEPRAZOLE 20 MG CAPSULE DR PO ×2 (11:08→22:26)
[2022-05-28] MEDS: DOXYCYCLINE HYCLATE 100 MG CAPSULE PO ×2 (11:08→22:25)
[2022-05-28] MEDS: LEVOTHYROXINE 50 MCG TABLET PO (11:08)
[2022-05-28] MEDS: dilTIAZem 180 MG CAP (CD) 360 MG PO (11:08)
[2022-05-28] MEDS: FOLIC ACID 1 MG TABLET PO (11:08)
[2022-05-28] MEDS: METOPROLOL TARTRATE 100 MG TABLET PO ×2 (11:09→22:25)
[2022-05-28] MEDS: POTASSIUM CHLORIDE 10 MEQ CAPSULE ER 20 MEQ PO (11:09)
[2022-05-28] MEDS: SENNOSIDES 1 TAB TABLET 2 TAB PO ×2 (11:09→20:30)
--- NOTE | 2022-05-28 14:08 | PC.NURSE ---
End of shift. pt has been pleasant. she has a flat affect. no pain but she says she has pain when taking teds on and off she says she has neuropathy. o2 is on @ 1LNC. at rest and 3L nc with activity. Tele shows NSR/SA. Murmur noted. LS/diminished. 500-750 and aerobika. use encouraged. no nausea this shift. she ate 50% of breakfast and she had no lunch. otrho bp done. and 500 mls ns given, Lasix was stopped. ? she is up with 1 assist walker and GB. she is a fall risk. she is eating, drinking and voiding. encouraged po intake. OT worked with her and nutrition talked to her. pt did agree to go to rehab.
--- NOTE | 2022-05-28 15:11 | PC.SOCIAL ---
Met with pt. again today to discuss discharge plans. After discussion with the physician pt. wants to go to a SNF for rehab. Pt. preferred rehab at the [facility]. The [facility] has a bed and is assessing, pending authorization from pt.'s [employer] insurance.
--- NOTE | 2022-05-28 15:23 | P.DS_ITS ---
DS: Providers Provider Date of admission: 05/19/22 16:13 Admitting Clinician: Jayesh Montelongo MD Consults: 05/25/22 01:34 Consult to Nutrition [CONS] Routine Comment: Reason for consult:: Nutritional Consult Comment: nutritional intake probably inadequated. 05/27/22 08:17 Consult to Occupational Therapy [CONS] Routine Comment: Reason(s) for OT Consult:: Evaluate and Treat Any Restrictions?:: No Restrictions Consult to Physical Therapy [CONS] Routine Comment: Reason(s) for PT Consult:: Balance Assessment Evaluate and Treat Any Restrictions?:: No Restrictions Attending Physician on discharge: Jayesh Montelongo MD DS: Summary Hospital Course Hospital Course: Patient presented with acute hypoxemic respiratory failure. Required oxygen supplementation to maintain saturations greater than 88% at rest. Saturations dipped even more with any exertion. Initiated oxygen supplementation therapy with nasal cannula administration of oxygen. On date of discharge 3 part oxygen study carried out. In order to maintain her saturations greater than regular 88% she required oxygen at 1 liter/minutes at rest and 3 liters/minute via nasal cannula with any exertion. Presumably her hypoxemic respiratory failure was driven mostly by the interstitial lung disease. We administered stress doses of prednisone for several days before switching down to prednisone 5 mg per day. recently her usual dose of prednisone had been decreased from 5 mg daily down to 5 mg alternating with 2.5 mg every other day. If the desires to attempt this again in the future it will need to be done after she has been stable on the 5 mg per day dose for at least a week. Patient was thought to be in acute heart failure when she 1st presented. Presumably this is related to the chronic diastolic heart failure that she has with preserved ejection fraction. Echocardiogram performed in the hospital demonstrated normal LV size, mildly increased wall thickness, normal global systolic function with an estimated EF of 65-70%. Echo also demonstrated sclerotic aortic valve with mild to moderate stenosis and trivial regurgitation. Peak velocity of 3.2 m/sec, mean gradient 18 mmHg, aortic valve area calculates to 1 centimeter squared. Patient also has mitral annular calcification with trace mitral regurgitation. Estimated right ventricular systolic pressures of 33 mmHg plus right atrial pressure noted. On presentation to the hospital she was not on a diuretic. When it was presumed that she had heart failure she was started on furosemide. She was treated with furosemide 80 mg every morning orally plus 40 mg orally in the afternoon. She lost about 4 kilos while in the hospital. Three days prior to discharge he started complaining of orthostasis. Indeed she was profoundly orthostatic with systolics dropping from 120 down to 60 within an appropriate heart rate response. We initially stop diuretic in treated with normal saline IV fluid boluses and she felt much improved. We attempted to decrease the dose of the furosemide down to 20 mg once daily only but that was still too much and thus we stopped it altogether prior to discharge. Additionally she had been on spironolactone prior to her hospital stay. She had been on 25 mg once daily. Prior to discharge we decreased the dose of the spironolactone down to 12.5 mg once daily. Myself than the other staff in the hospital or concerned about the patient's ability to make safe choices. Additionally were concerned about her ability to ambulate safely in her home with the use of her oxygen tubing. We recommended that she proceed with transitional cares before she consider returning home. The thought is that she needs additional time to be confident about her new limitations including the use of the nasal cannula. She lives alone in her home. Status at Discharge Cognitive/behavioral status at discharge: Alert, oriented to self, place, time, situation. Does not always make safe and appropriate choices on her own behalf. It is unclear she is unaware that she is dizzy or if she is not as disease it seems like she ought to be given her orthostatic changes. It seems that at times she simply prefers to stay in bed rather than to request help and support. At times seems depressed. Other times more interactive. Functional status at discharge: uses cane/walker Overall status at discharge: patient is progressing back to baseline Time Spent with Patient Time attestation: Total time spent providing and/or coordinating discharge services: Time spent: Greater than 30 minutes Exam Narrative: Exam Narrative: No longer orthostatic prior to discharge. Lungs with chronic bilateral end inspiratory rales, right more so than left. Heart tones with regular rhythm, normal S1-S2. Heart murmur noted. Abdomen with active bowel sounds, soft, nontender. Extremities without edema. Able to transfer with standby assist. Ambulates with standby assist. Const: Vital Signs, click to edit/add: Vital Signs - 24 hr 05/27/22 15:53 05/27/22 19:13 05/27/22 23:00 Temperature 98 F 96.8 F L Pulse Rate 64 Pulse Rate [Left A pical] 64 Pulse Rate [Right Pulse Oximeter] 66 Pulse Rate [orthos tatic lying Left P ulse Oximeter] Pulse Rate [orthos tatic sitting Left Pulse Oximeter] Pulse Rate [orthos tatic standing Lef t Pulse Oximeter] Respiratory Rate 20 20 Blood Pressure [Le ft Arm] 148/78 H 126/45 L Blood Pressure [or thostatic lying Le ft Arm] Blood Pressure [or thostatic sitting Left Arm] Blood Pressure [or thostatic standing Left Arm] Pulse Oximetry 91 93 05/27/22 23:25 05/27/22 23:26 05/27/22 23:28 Temperature 97.0 F L Pulse Rate Pulse Rate [Left A pical] 70 Pulse Rate [Right Pulse Oximeter] Pulse Rate [orthos tatic lying Left P ulse Oximeter] Pulse Rate [orthos tatic sitting Left Pulse Oximeter] Pulse Rate [orthos tatic standing Lef t Pulse Oximeter] Respiratory Rate 20 20 20 Blood Pressure [Le ft Arm] 143/55 H Blood Pressure [or thostatic lying Le ft Arm] Blood Pressure [or thostatic sitting Left Arm] Blood Pressure [or thostatic standing Left Arm] Pulse Oximetry 93 90 05/28/22 04:12 05/28/22 07:17 05/28/22 07:46 Temperature 97.7 F 97.0 F L Pulse Rate 65 Pulse Rate [Left A pical] 65 76 Pulse Rate [Right Pulse Oximeter] 76 Pulse Rate [orthos tatic lying Left P ulse Oximeter] Pulse Rate [orthos tatic sitting Left Pulse Oximeter] Pulse Rate [orthos tatic standing Lef t Pulse Oximeter] Respiratory Rate 16 22 Blood Pressure [Le ft Arm] 121/58 L 175/75 H Blood Pressure [or thostatic lying Le ft Arm] Blood Pressure [or thostatic sitting Left Arm] Blood Pressure [or thostatic standing Left Arm] Pulse Oximetry 93 90 05/28/22 08:44 05/28/22 11:19 Temperature 97.1 F L Pulse Rate Pulse Rate [Left A pical] 74 Pulse Rate [Right Pulse Oximeter] 74 Pulse Rate [orthos tatic lying Left P ulse Oximeter] 70 74 Pulse Rate [orthos tatic sitting Left Pulse Oximeter] 80 83 Pulse Rate [orthos tatic standing Lef t Pulse Oximeter] 76 91 Respiratory Rate 18 Blood Pressure [Le ft Arm] 126/44 L Blood Pressure [or thostatic lying Le ft Arm] 134/63 126/44 L Blood Pressure [or thostatic sitting Left Arm] 94/64 119/68 Blood Pressure [or thostatic standing Left Arm] 81/62 L 119/70 Pulse Oximetry 90 DS: Data Data Completed and Pending Labs on day of discharge: Labs from last 24 hours 05/28/22 06:09 INR 1.95 H Discharge Plan Discharge Disposition: Xfer Other Discharge Location: [facility] Date of Admission: 05/19/22 16:13 Attending Provider on Discharge: Marvel Isbell Condition: Improved Anticipated Discharge Date/Time: 05/28/22 14:00 Discharge Medications: New albuterol sulfate 2.5 mg /3 mL (0.083 %) Solution For Nebulization 2.5 mg NEB Q2H PRNQty: 60 1RF warfarin [Jantoven] 2.5 mg Tablet 2.5 mg PO SuTuThSa@1700 Qty: 20 1RF warfarin [Jantoven] 5 mg Tablet 5 mg PO MOWEFR@1700 Qty: 12 1RF (DME) Home Oxygen Misc See Rx Instructions .Route Qty: 1 0RF Rx Instructions: 1 LPM via NC at rest, 3 LPM via NC with activity spironolactone 25 mg Tablet 12.5 mg PO DAILY Qty: 15 1RF Continued acetaminophen 325 mg tablet 650 mg PO Q4H PRN0RF albuterol sulfate [Ventolin HFA] 90 mcg/actuation HFA aerosol inhaler 1 inh inhalation Q6H PRN0RF azelastine 205.5 mcg (0.15 %) spray,non-aerosol 2 spray intranasal BID 0RF Rx Instructions: administer into each nostril diltiazem HCl 360 mg capsule,extended release 24hr 360 mg PO DAILY 0RF docusate sodium 100 mg capsule 100 mg PO BID PRN0RF fluticasone propionate 50 mcg/actuation spray,suspension 1 spray intranasal BID 0RF Rx Instructions: administer into each nostril folic acid 1 mg tablet 1 mg PO DAILY 0RF ferrous gluconate 324 mg (38 mg iron) tablet 324 mg PO DAILY 0RF levothyroxine 50 mcg tablet 50 mcg PO DAILY 0RF metoprolol tartrate 100 mg tablet 100 mg PO BID 0RF montelukast [Singulair] 10 mg tablet 10 mg PO HS 0RF omeprazole 20 mg capsule,delayed release(DR/EC) 20 mg PO DAILY 0RF ondansetron 4 mg tablet,disintegrating 4 mg PO Q8H PRN0RF prednisone 5 mg tablet 5 mg PO DAILY 0RF Deep Sea Nasal 0.65 % aerosol,spray 1 spray intranasal Q3H PRN0RF Discontinued spironolactone 25 mg tablet 25 mg PO DAILY 0RF warfarin 2.5 mg tablet See Rx Instructions PO DAILY 0RF Label Comments: 3.75mg Mon,Wed,Fri and 2.5mg other days Rx Instructions: 2.5-3.75 MG PO daily; Discharge Orders: Discharge Order (Routine); Ordered 05/28/22 Ordered By: Marvel Isbell Activity Level: Activity as Tolerated Discharge Diet: Regular Forms: [employer] ([employer]) Limited Info Instructions Hospital Course: Patient presented with acute hypoxemic respiratory failure. Required oxygen s upplementation to maintain saturations greater than 88% at rest. Saturations dipped even more with any exertion. Initiated oxygen supplementation therapy with nasal cannula administration of oxygen. On date of discharge 3 part oxygen study carried out. In order to maintain her saturations greater than regular 88% she required oxygen at 1 liter/minutes at rest and 3 liters/minute via nasal cannula with any exertion. Presumably her hypoxemic respiratory failure was driven mostly by the interstitial lung disease. We administered stress doses of prednisone for several days before switching down to prednisone 5 mg per day. recently her usual dose of prednisone had been decreased from 5 mg daily down to 5 mg alternating with 2.5 mg every other day. If the desires to attempt this again in the future it will need to be done after she has been stable on the 5 mg per day dose for at least a week. Patient was thought to be in acute heart failure when she 1st presented. Presumably this is related to the chronic diastolic heart failure that she has with preserved ejection fraction. Echocardiogram performed in the hospital demonstrated normal LV size, mildly increased wall thickness, normal global systolic function with an estimated EF of 65-70%. Echo also demonstrated sclerotic aortic valve with mild to moderate stenosis and trivial regurgitation. Peak velocity of 3.2 m/sec, mean gradient 18 mmHg, aortic valve area calculates to 1 centimeter squared. Patient also has mitral annular calcification with trace mitral regurgitation. Estimated right ventricular systolic pressures of 33 mmHg plus right atrial pressure noted. On presentation to the hospital she was not on a diuretic. When it was presumed that she had heart failure she was started on furosemide. She was treated with furosemide 80 mg every morning orally plus 40 mg orally in the afternoon. She lost about 4 kilos while in the hospital. Three days prior to discharge he started complaining of orthostasis. Indeed she was profoundly orthostatic with systolics dropping from 120 down to 60 within an appropriate heart rate response. We initially stop diuretic in treated with normal saline IV fluid boluses and she felt much improved. We attempted to decrease the dose of the furosemide down to 20 mg once daily only but that was still too much and thus we stopped it altogether prior to discharge. Additionally she had been on spironolactone prior to her hospital stay. She had been on 25 mg once daily. Prior to discharge we decreased the dose of the spironolactone down to 12.5 mg once daily. Myself than the other staff in the hospital or concerned about the patient's ability to make safe choices. Additionally were concerned about her ability to ambulate safely in her home with the use of her oxygen tubing. We recommended that she proceed with transitional cares before she consider returning home. The thought is that she needs additional time to be confident about her new limitations including the use of the nasal cannula. She lives alone in her home.
[2022-05-28] MEDS: WARFARIN 2 MG TABLET PO (16:56)
[2022-05-28] MEDS: WARFARIN 5 MG TABLET PO (16:57)
[2022-05-28] MEDS: MONTELUKAST 10 MG TABLET PO (20:30)
--- NOTE | 2022-05-28 22:35 | PC.NURSE ---
shift note 15-23: pt pleasant and cooperative. up to BR x 3. no BM. LS clear, dim in bases. 1L O2 at rest and 3L O2 with activity, sats maintained 90-95%. pt encouraged to use IS and aerobika. no c/o dizziness with ambulation.
[2022-05-29] VITALS (9 sets, daily range): BP systolic 115–157; BP diastolic 49–64; PULSE 63–83; RESP 18–26; TEMP 36.6–38; O2SAT 84–94
--- NOTE | 2022-05-29 05:01 | PC.NURSE ---
[id number] Pt slept well during night, up to BR x1 with NC increased to 3lpm with ambulation. while sleeping pt required 1LPM O2 to maintain sats. denies pain, sob, difficulty breathing, N/V or chest pain.
[2022-05-29 07:33] LABS: INR 1.83 (0.91-1.10); Prothrombin Time 21.6 Seconds
[2022-05-29 08:41] LABS: Appearance Urine Clear (Clear); Bilirubin Urine Negative (Negative); Blood Urine Negative (Negative); Color Urine Yellow (Yellow); Glucose Urine Negative (Negative); Ketones Urine Negative (Negative); Leukocyte Esterase Urine Negative (Negative); Nitrite Urine Negative (Negative); Protein Urine Negative (Negative); Urobilinogen Urine 0.2 (0.2-1.0); pH Urine 5.5 (5.0-8.5)
[2022-05-29] MEDS: ACETAMINOPHEN 325 MG TABLET 650 MG PO (09:39)
[2022-05-29] MEDS: SPIRONOLACTONE 25 MG TABLET 12.5 MG PO (09:40)
[2022-05-29] MEDS: predniSONE 5 MG TABLET PO (09:41)
[2022-05-29] MEDS: FERROUS SULFATE 325 MG TABLET PO (09:46)
[2022-05-29] MEDS: dilTIAZem 180 MG CAP (CD) 360 MG PO (11:41)
[2022-05-29] MEDS: METOPROLOL TARTRATE 100 MG TABLET PO ×2 (11:42→22:38)
[2022-05-29] MEDS: DOXYCYCLINE HYCLATE 100 MG CAPSULE PO ×2 (11:42→22:35)
[2022-05-29] MEDS: FOLIC ACID 1 MG TABLET PO (11:42)
[2022-05-29] MEDS: POTASSIUM CHLORIDE 10 MEQ CAPSULE ER 20 MEQ PO (11:42)
[2022-05-29] MEDS: OMEPRAZOLE 20 MG CAPSULE DR PO ×2 (11:43→22:39)
[2022-05-29] MEDS: LEVOTHYROXINE 50 MCG TABLET PO ×2 (11:44)
[2022-05-29] MEDS: SENNOSIDES 1 TAB TABLET 2 TAB PO ×2 (11:44→20:37)
--- NOTE | 2022-05-29 14:43 | PC.SOCIAL ---
Pt.'s insurance denied a SNF stay based on therapy notes and pt.'s health status. They recommended pt. discharge with home care, which was the original plan. Pt. will discharge with [facility] and OT and they can open pt. to care on Thursday. Pt. needs oxygen set up prior to discharge as well. Pt. has been updated and is in agreement with this discharge plan. therapeutic activities services worker will continue to work on discharge planning needs.
--- NOTE | 2022-05-29 15:42 | PC.NURSE ---
IV site and telemetry discontinued for planned d/c. Urine sample sent for UA/Culture this am. Pt takes meds one at a time. Poor appetite for bkfst and improved at lunch time. Pt dressed in her own clothes by BREONNA Valles, she states I'm always so cold. Pt noted to be wearing a knit hat and scarf. D/C to [facility] cancelled d/to insurance issues. Plan d/c to home care with home oxygen in process per SS. Padilla by Dr. Isbell. Report to Adri CAPELLAN for evening shift.
--- NOTE | 2022-05-29 15:54 | P.IMPN_ITS ---
Progress Note: A&P Assessment and plan (1) Acute systolic heart failure due to valvular disease: Problem details: Patient does not have systolic heart failure. Patient has diastolic heart failure with ejection fraction of 65-70% on 05/19/2022. Status: Acute (2) Aortic stenosis: Problem details: last echo 04/13. Normal EF. Normal right and left ventricular function. Aortic valve is sclerotic. Moderate stenosis. Peak gradient 27 mmHg. Status: Acute (3) Acute on chronic respiratory failure with hypoxia: Problem details: Multifactorial secondary to interstitial lung disease and heart failure, and possibly exacerbation of diastolic heart failure. Status: Acute (4) On prednisone therapy: Problem details: Prior to this hospitalization had been on a tapering dose of 5 mg alternating with 2.5 mg every other day. Receiving this in association with underlying pulmonary interstitial lung disease and COPD. Status: Acute (5) Chronic kidney disease: Status: Acute (6) History of pulmonary embolism: Problem details: First occurrence 10/10 provoked, then 2018 unprovoked. Chronic anticoagulation. History of DVTs as well. 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 follows with pulmonology. 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 Restrictive pattern with mild obstr uctive pattern on PFTs, 2021. Status: Acute (8) Hypertension: Status: Acute (9) Paroxysmal A-fib: Problem details: Rate controlled and on anticoagulation Status: Acute (10) Hypothyroidism: Status: Acute (11) Iron deficiency anemia: Status: Acute Plan 1. Reviewed impression with patient. 2. There is now more certainty that nursing homes do not have bed availability for her at this time, plus patient does not meet eligibility criteria for transitional care services in a senior care given her improvement over time. 3. Anticipate she will be ready for discharge to her home tomorrow after we have had an opportunity to aligned services for her, including oxygen therapy that she will need in her home. Will need to consider occupational therapy and physical therapy in the outpatient setting. Consider home care services and support. 4. Will recheck labs in the morning. 5. Continue with current levels of intervention. 6. Patient's temperature has been getting close to 99 and 100? F the last couple of days. Urinalysis is benign. Will repeat PA and lateral chest x-ray in the morning. Time Spent With Patient Total time spent: 30 minutes Subjective Time Seen by Provider: 08:00 Date Seen: 05/29/22 Interval history: Hospital day number 11. She continues to require 1 L of oxygen per minute via nasal cannula at rest to maintain saturations greater than 88%. She is still not requiring higher oxygen flow rates. She feels better when she receives the oxygen supplementation. Her complaint of orthostasis is resolved today. I did need to administer 500 mL of normal saline intravenously and stopped her furosemide and decreased her dose of spironolactone yesterday. Does not have dyspnea when transferring from bed to chair. Does have minimal dyspnea when transferring from bed to bathroom. She denies any chest heaviness, pressure, tightness, or pain. She is less a nxious about the possibly of having to go home alone on oxygen therapy. For a while yesterday and today it appeared as though she would be transferring to a senior care. The senior care now informs us that the patient does not meet eligibility criteria for senior care services. Exam Narrative: Exam Narrative: No acute distress. Alert and oriented to person, place, time, situation. Flat affect. Mood and affect are congruent. Skin is warm, dry, intact. Lungs with chronic bibasilar rales, right greater than left. Heart tones with regular rhythm, normal S1-S2. Abdomen with active bowel sounds, soft, nontender. Extremities without edema. Independent transfer, station, and gait. Cranial nerves 3-12 grossly intact. Const: Vital Signs, click to edit/add: Vital Signs - 24 hr 05/28/22 19:00 05/28/22 23:00 05/28/22 23:47 Temperature 98 F 98.0 F Pulse Rate 69 Pulse Rate [Right Pulse Oximeter] 70 73 Respiratory Rate 20 18 Blood Pressure [Le ft Arm] 148/64 H 127/50 L Pulse Oximetry 92 95 05/29/22 03:00 05/29/22 07:00 05/29/22 07:23 Temperature 99.2 F 99.1 F Pulse Rate 70 Pulse Rate [Right Pulse Oximeter] 72 79 Respiratory Rate 18 18 Blood Pressure [Le ft Arm] 157/64 H 125/60 Pulse Oximetry 92 90 05/29/22 09:39 05/29/22 11:00 Temperature 99.1 F 99.1 F Pulse Rate Pulse Rate [Right Pulse Oximeter] 83 Respiratory Rate 18 Blood Pressure [Le ft Arm] 123/56 L Pulse Oximetry 92 Labs Labs: Laboratory Results - last 24 hr 05/29/22 05/29/22 06:25 08:30 INR 1.83 H Urine Color Yellow Urine Appearance Clear Urine pH 5.5 Ur Specific [place] 1.020 Urine Protein Negative Urine Glucose (UA) Negative Urine Ketones Negative Urine Blood Negative Urine Nitrite Negative Urine Bilirubin Negative Urine Urobilinogen 0.2 Ur Leukocyte Esterase Negative
--- NOTE | 2022-05-29 16:53 | CRLHL7_ITS ---
For Patients: As a result of the Century Cures Act, medical imaging exams and procedure reports are released immediately into your electronic medical record. You may view this report before your referring provider. If you have questions, please contact your health care provider. INDICATION: Fever. Chronic interstitial lung disease TECHNIQUE: Chest radiograph 2 views COMPARISON: 05/23/2022 FINDINGS: Mediastinum: The mediastinum is normal in appearance. The heart silhouette is normal in size and morphology. Lung: Diffuse fine interstitial infiltrates and ground-glass opacities are present bilaterally with small lung volumes. No sign of pleural effusion seen. No pneumothorax is identified. Bone and Soft tissue: Posterior spinal fusion of the mid thoracic spine surrounding a severe compression deformity is noted without change. IMPRESSION: 1. Diffuse fine interstitial infiltrates and ground-glass opacities are present bilaterally with small lung volumes. Findings are similar to exam and likely due to pulmonary fibrosis. Dictated by Mikhail Ramos MD @ 05/29/2022 6:07:46 PM Dictated by: Mikhail Ramos MD @ 05/29/2022 18:07:50 (Electronically Signed)
[2022-05-29] MEDS: WARFARIN 2.5 MG TABLET PO (17:23)
[2022-05-29] MEDS: MONTELUKAST 10 MG TABLET PO (20:37)
--- NOTE | 2022-05-29 22:03 | PC.NURSE ---
End of Shift: Patient pleasant and cooperative. Patient is vitally stable, lungs course/crackle posteriorly and anteriorly, BS WNL, NO IV. Patient is on 1 L of O2 NS and 3 L NS with activity. Patient denied pain. Patient is 1 assist, walker, gb to toilet. Patient reported that the chest pressure she came in with still has not resolved. Patient urinating and tolerating diet, eating 75% of dinner.
[2022-05-30] MEDS: ONDANSETRON ODT 4 MG TAB PO ×2 (01:02→11:28)
[2022-05-30 03:00] VITALS: BP 117/56; PULSE 77; RESP 18; TEMP 36.9; O2SAT 91
--- NOTE | 2022-05-30 05:40 | PC.NURSE ---
SHIFT NOTE: PT CALM AND COOPERATIVE. HS UNEVENTFUL. PT VSS WITH THE USE OF SUPPLEMENTAL OXYGEN VIA NC. 1-1.5L O2 USED WHILE AT REST; 3L USED WITH ACTIVITY TO MAINTAIN SPO2 >88%. COURSE CRACKLES AND EXPIRATORY RHONCHI NOTED UPON AUSCULTATION. PT REQUIRES ENCOURAGEMENT TO USE IS AND AEROBIKA. PT DENIES PAIN. PT C/O FEELING NAUSEATED THAT WAS RELIEVED WITH ONDANSETRON. PT MOVES WITH KAYODE BARAHONA, A1.
[2022-05-30 06:55] LABS: HCO3 VBG 26 mmol/L (21-28); PCO2 VBG 35 mmHG (40-50); PO2 VBG 79.2 mmHG (25-47); pH VBG 7.477 (7.32-7.43)
[2022-05-30 07:20] LABS: Basophils Percent Auto 0.1 % (0.0-3.0); Eosinophils Percent Auto 0.8 % (0.0-7.0); Hematocrit 37.1 % (33.0-51.0); Hemoglobin* 11.9 gm/dL (12.0-16.0); Immature Granulocytes Abs Auto 0.54 K/uL (0.00-0.30); Mean Corpuscular HGB Conc 32 gm/dL (32-36); Mean Corpuscular Hemoglobin 30 pg (26-34); Mean Corpuscular Volume 94 fL (80-100); Monocytes Percent Auto 9.6 % (0.0-11.0); Neutrophils Percent Auto 69.5 % (42.0-72.0); Platelet Count* 300 K/uL (140-440); RDW Coefficient of Variation % 13.1 % (11.5-15.5); Red Blood Count 3.95 m/uL (4.00-5.20); White Blood Count* 13.66 K/uL (4.50-11.00)
[2022-05-30 07:41] VITALS: BP 120/63; PULSE 80; RESP 20; TEMP 36.8; O2SAT 90
[2022-05-30 07:45] LABS: Albumin* 3.4 g/dL (3.3-5.0); Chloride* 103 mmol/L (96-114); Potassium* 5.1 mmol/L (3.6-5.1); Sodium* 131 mmol/L (135-149)
[2022-05-30 07:48] LABS: Carbon Dioxide* 25 mmol/L (20-32); Creatinine* 1.2 mg/dL (0.5-1.5); Est. Creatinine Clearance* 27.75; Estimated Glomerular Filt Rate 46.33
[2022-05-30 07:49] LABS: Blood Urea Nitrogen* 33 mg/dL (7-30); Glucose* 119 mg/dL (60-115); Phosphorus* 2.9 mg/dL (2.5-4.5)
[2022-05-30 07:52] LABS: Slide Review Reflex No
[2022-05-30] MEDS: SPIRONOLACTONE 25 MG TABLET 12.5 MG PO (09:47)
[2022-05-30] MEDS: predniSONE 5 MG TABLET PO (09:47)
[2022-05-30] MEDS: FERROUS SULFATE 325 MG TABLET PO (09:49)
[2022-05-30 10:28] VITALS: BP 104/60; BP 127/72; BP 129/72; PULSE 80; PULSE 81; PULSE 85
--- NOTE | 2022-05-30 10:29 | RESP.3PART ---
3 Part Home O2 Testing Summary RT 3 Part Home O2 Testing Summary Start: 05/26/22 08:28 Freq: Status: Active Protocol: Document 05/29/22 14:50 CHEMA (Rec: 05/29/22 14:54 CHEMA [id number]) 3 Part Home O2 Testing Summary The following is a summary of the 3 Part O2 Testing Evaluation Date/Time of Testing Date 05/29/22 Time 14:20 Insurance Policy Number [id number] Step 1 SAT on room air at rest (%) 87 Step 2 SAT on room air while exercising (%) 84 Step 3 SAT on supplemental O2 while exercising 90 (%) Liters of supplemental O2 needed while 3 exercising (L) O2 Delivery O2 delivered via Nasal Cannula Comments Comments Patient SAT on room air at rest is 87% and requires 1L NC to keep SAT at 90%. Patient SAT on room air with activity is 84% and requires 3L NC to keep SAT at 90 %.
[2022-05-30] MEDS: OMEPRAZOLE 20 MG CAPSULE DR PO (11:03)
[2022-05-30] MEDS: DOXYCYCLINE HYCLATE 100 MG CAPSULE PO (11:03)
[2022-05-30] MEDS: POTASSIUM CHLORIDE 10 MEQ CAPSULE ER 20 MEQ PO (11:03)
[2022-05-30] MEDS: METOPROLOL TARTRATE 100 MG TABLET PO (11:04)
[2022-05-30] MEDS: FOLIC ACID 1 MG TABLET PO (11:04)
[2022-05-30] MEDS: dilTIAZem 180 MG CAP (CD) 360 MG PO (11:04)
[2022-05-30] MEDS: 0.9 % SODIUM CHLORIDE 500 ML 500 ML IV (11:36)
[2022-05-30] MEDS: LEVOTHYROXINE 50 MCG TABLET PO (11:46)
--- NOTE | 2022-05-30 12:33 | W.PM.HOT ---
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 follows with pulmonology. 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 Restrictive pattern with mild obstructive pattern on PFTs, 2021. 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 Alternative therapies have been attempted and have not been successful in maintaining the patient's saturation level above 88%. Supplemental O2 is required. This patient is mobile within the home and requires portability.
[2022-05-30 12:51] VITALS: BP 155/65; PULSE 80; RESP 18; TEMP 36.7; O2SAT 91
[2022-05-30 13:11] VITALS: BP 115/64; BP 155/65; BP 92/46; PULSE 80; PULSE 81; PULSE 82
[2022-05-30 16:19] VITALS: BP 148/63; PULSE 64; RESP 18; TEMP 36.7; O2SAT 91
--- NOTE | 2022-05-30 16:25 | PC.SOCIAL ---
Social work: Per MD order for home oxygen, faxed required paperwork to [facility] at pt request. Pt will be discharged home with a POC unit already stocked at the hospital by [facility] #[id number], SN [phone].
--- NOTE | 2022-05-30 17:21 | RESP.RT ---
Patient set up with Home O2 through [facility]. Patient educated on how the POC works and how to contact [facility] once she is home with any issues.
[2022-05-30] MEDS: WARFARIN 5 MG TABLET PO (18:02)
--- NOTE | 2022-05-30 19:08 | PC.NURSE ---
Shift Summary: patient pleasant and cooperative. Up with SBA and walker. O2 @ 1-1.5L at rest and 3L with ambulation. Needs encouragement to do incentive spirometer and aerobika. Vitals stable, denies pain, still has SOB but recovers once resting. Patient given teachings on home o2. Discharge instructions given and medication changes reviewed, IV removed from right hand. Questions answered as needed. Patient continues to have poor appetite, given education on supplements and small frequent meals throughout day.
--- NOTE | 2022-05-30 19:54 | PC.NURSE ---
Discharge - Patient awaits caregiver for ride home. She is previously given discharge instructions. She leaves with all belongings via wheelchair with caregiver.
--- NOTE | 2022-06-02 12:51 | P.DS_ITS ---
DS: Providers Provider Time Seen by Provider: 09:00 Date Seen: 05/30/22 Date of admission: 05/19/22 16:13 Admitting Clinician: Jayesh Montelongo MD Consults: 05/25/22 01:34 Consult to Nutrition [CONS] Routine Comment: Reason for consult:: Nutritional Consult Comment: nutritional intake probably inadequated. 05/27/22 08:17 Consult to Occupational Therapy [CONS] Routine Comment: Reason(s) for OT Consult:: Evaluate and Treat Any Restrictions?:: No Restrictions Consult to Physical Therapy [CONS] Routine Comment: Reason(s) for PT Consult:: Balance Assessment Evaluate and Treat Any Restrictions?:: No Restrictions Attending Physician on discharge: Marvel Torres MD Date of Discharge: 05/30/22 DS: Diagnosis Discharge Diagnosis (1) Acute on chronic respiratory failure with hypoxia: Status: Acute Problem details: Multifactorial secondary to interstitial lung disease and possibly exacerbation of diastolic heart failure. 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 follows with pulmonology. 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 Restrictive pattern with mild obstructive pattern on PFTs, 2021. (3) Acute on chronic diastolic CHF (congestive heart failure), NYHA class 3: Status: Acute Problem details: Ejection fraction of 65-70% on 05/23/2022. Spectral Doppler showed grade 1 pattern of LV diastolic filling. (4) Valvular cardiomyopathy: Status: Acute (5) Aortic stenosis: Status: Acute Problem details: last echo 05/23/22. Normal EF. Normal right and left ventricular function. Aortic valve is sclerotic. Moderate stenosis. Peak velocity 3.2 m/sec, mean gradient 18 mm Hg. LAMONT calculates to 1 cm2. (6) On prednisone therapy: Status: Acute Problem details: Prior to May 2022 had been on a tapering dose of 5 mg alternating with 2.5 mg every other day. Receiving this in association with underlying pulmonary interstitial lung disease and COPD. (7) Hypovolemia associated with diuresis: Status: Acute (8) Chronic kidney disease: Status: Acute Problem details: stage 3b from [facility] record, baseline Cr 1.2-1.4 (9) Hypertension: Status: Acute (10) Paroxysmal A-fib: Status: Acute Problem details: Rate controlled and on anticoagulation (11) History of pulmonary embolism: Status: Acute Problem details: First occurrence 10/10 provoked, then 2019 unprovoked. Chronic anticoagulation. History of DVTs as well. (12) Hypothyroidism: Status: Acute Problem details: acquired per [facility] record (13) Iron deficiency anemia: Status: Acute (14) Chronic anticoagulation: Status: Chronic Problem details: paroxysmal a fib and h/o PE x 2 DS: Summary Hospital Course Hospital Course: Patient presented with acute hypoxemic respiratory failure. Required oxygen supplementation to maintain saturations greater than 88% at rest. Saturations dipped even more with any exertion. Initiated oxygen supplementation therapy with nasal cannula administration of oxygen. On date of discharge 3 part oxygen study carried out. In order to maintain her saturations greater than regular 88% she required oxygen at 1 liter/minutes at rest and 3 liters/minute via nasal cannula with any exertion. Presumably her hypoxemic respiratory failure was driven mostly by the interstitial lung disease. We administered stress doses of prednisone for several days before switching down to prednisone 5 mg per day. recently her usual dose of prednisone had been decreased from 5 mg daily down to 5 mg alternating with 2.5 mg every other day. If the desires to attempt this again in the future it will need to be done after she has been stable on the 5 mg per day dose for at least a week. Patient was thought to be in acute heart failure when she 1st presented. Presumably this is related to the chronic diastolic heart failure that she has with preserved ejection fraction. Echocardiogram performed in the hospital demonstrated normal LV size, mildly increased wall thickness, normal global systolic function with an estimated EF of 65-70%. Echo also demonstrated sclerotic aortic valve with mild to moderate stenosis and trivial regurgitation. Peak velocity of 3.2 m/sec, mean gradient 18 mmHg, aortic valve area calculates to 1 centimeter squared. Patient also has mitral annular calcification with trace mitral regurgitation. Estimated right ventricular systolic pressures of 33 mmHg plus right atrial pressure noted. On presentation to the hospital she was not on a diuretic. When it was presumed that she had heart failure she was started on furosemide. She was treated with furosemide 80 mg every morning orally plus 40 mg orally in the afternoon. She lost about 4 kilos while in the hospital. Three days prior to discharge he started complaining of orthostasis. Indeed she was profoundly orthostatic with systolics dropping from 120 down to 60 within an appropriate heart rate response. We initially stop diuretic in treated with normal saline IV fluid boluses and she felt much improved. We attempted to decrease the dose of the furosemide down to 20 mg once daily only but that was still too much and thus we stopped it altogether prior to discharge. Additionally she had been on spironolactone prior to her hospital stay. She had been on 25 mg once daily. Prior to discharge we decreased the dose of the spironolactone down to 12.5 mg once daily. Myself than the other staff in the hospital or concerned about the patient's ability to make safe choices. Additionally were concerned about her ability to ambulate safely in her home with the use of her oxygen tubing. We recommended that she proceed with transitional cares before she consider returning home. The thought is that she needs additional time to be confident about her new limitations including the use of the nasal cannula. She lives alone in her home. Status at Discharge Cognitive/behavioral status at discharge: Patient is mood and affect was flat and sad throughout much of hospitalization. Number less she was alert, oriented to self, place, time, situation. Articulate and cooperative. Expressed a sense of anxiety about returning back to her home with oxygen. This was addressed over the course of multiple days with multiple hospital personnel. She vacillated between thinking she could go home versus not being able to go home. We did look into longterm admission possibilities for her but longterm indicated that patient did not meet eligibility criteria for being admitted to the longterm for short-term stay. Ultimately she was more comfortable going to her home on oxygen supplementation. Functional status at discharge: independent ambulation Overall status at discharge: patient is progressing back to baseline Time Spent with Patient Time attestation: Total time spent providing and/or coordinating discharge services: Time spent: Greater than 30 minutes Exam Narrative: Exam Narrative: Lungs with bibasilar end inspiratory rales, right greater than left. This is been fairly constant throughout her hospital stay. Heart tones with regular rhythm, normal S1-S2. No CVA tenderness. Abdomen with active bowel sounds, soft, nontender. Extremities without edema. Skin is warm, dry, intact. No rashes. No petechiae. No cyanosis. Independent transfer, station, and gait. No longer orthostatic. Const: Documenting provider has reviewed patient's vital signs: yes Discharge Plan Discharge Disposition: Home, Self-Care Date of Admission: 05/19/22 16:13 Attending Provider on Discharge: Marvel Isbell Condition: Improved Anticipated Discharge Date/Time: 05/28/22 14:00 Discharge Medications: New albuterol sulfate 2.5 mg /3 mL (0.083 %) Solution For Nebulization 2.5 mg NEB Q2H PRNQty: 60 1RF warfarin [Jantoven] 5 mg Tablet 5 mg PO MOWEFR@1700 Qty: 12 1RF (DME) Home Oxygen Misc See Rx Instructions .Route Qty: 1 0RF Rx Instructions: 1 LPM via NC at rest, 3 LPM via NC with activity spironolactone 25 mg Tablet 12.5 mg PO DAILY Qty: 15 1RF (DME) Home Oxygen Misc See Rx Instructions .Route Qty: 1 0RF Rx Instructions: Frequency: continuous; Dosage: 1 LPM at rest, 3 LPM with activity; Route of administration: Nasal Canula; Duration: 99 months Continued acetaminophen 325 mg tablet 650 mg PO Q4H PRN0RF albuterol sulfate [Ventolin HFA] 90 mcg/actuation HFA aerosol inhaler 1 inh inhalation Q6H PRN0RF azelastine 205.5 mcg (0.15 %) spray,non-aerosol 2 spray intranasal BID 0RF Rx Instructions: administer into each nostril diltiazem HCl 360 mg capsule,extended release 24hr 360 mg PO DAILY 0RF docusate sodium 100 mg capsule 100 mg PO BID PRN0RF fluticasone propionate 50 mcg/actuation spray,suspension 1 spray intranasal BID 0RF Rx Instructions: administer into each nostril folic acid 1 mg tablet 1 mg PO DAILY 0RF ferrous gluconate 324 mg (38 mg iron) tablet 324 mg PO DAILY 0RF levothyroxine 50 mcg tablet 50 mcg PO DAILY 0RF metoprolol tartrate 100 mg tablet 100 mg PO BID 0RF montelukast [Singulair] 10 mg tablet 10 mg PO HS 0RF omeprazole 20 mg capsule,delayed release(DR/EC) 20 mg PO DAILY 0RF ondansetron 4 mg tablet,disintegrating 4 mg PO Q8H PRN0RF prednisone 5 mg tablet 5 mg PO DAILY 0RF [place] Nasal 0.65 % aerosol,spray 1 spray intranasal Q3H PRN0RF Discontinued spironolactone 25 mg tablet 25 mg PO DAILY 0RF warfarin 2.5 mg tablet See Rx Instructions PO DAILY 0RF Label Comments: 3.75mg Mon,Wed,Fri and 2.5mg other days Rx Instructions: 2.5-3.75 MG PO daily; No Action warfarin [Jantoven] 2.5 mg Tablet 2.5 mg PO .UD 0RF Label Comments: 1 TABLET (2.5MG) KENDELL ROSSI SAT Discharge Orders: Discharge Order (Routine); Ordered 05/30/22 Ordered By: Marvel Isbell Patient Education: Spironolactone (By mouth) (Aldactone, Carospir), Albuterol (By breathing) (ProAir, AccuNeb, Proventil, Proventil..., Warfarin (By mouth) (Coumadin, Jantoven), Using Oxygen at Home (GEN), Hypoxia (GEN) Activity Restrictions/Additional Instructions: 1. Needs follow-up appointment with primary care physician in 1-2 weeks Activity Level: Activity as Tolerated Discharge Diet: Regular Follow Up Appointments: Katerin De La Cruz DO [Referring] - 06/06/22 12:35 pm (Appointment with Katerin De La Cruz DO [facility]) Forms: [employer] Info Instructions
== END 2022-05-30 20:01 | disposition home or self-care (01) | DRG 189 ==
PROVIDERS: Family Medicine; Internal Medicine; Admitting Provider Family Medicine; Emergency Provider Family Medicine; Visit Provider Family Medicine
DX: J96.21 Acute and chronic respiratory failure with hypoxia (principal); I50.33 Acute on chronic diastolic (congestive) heart failure; M31.30 Wegener's granulomatosis without renal involvement; I13.0 Hypertensive heart and chronic kidney disease with heart failure and stage 1 through stage 4 chronic kidney disease, or unspecified chronic kidney disease; I43 Cardiomyopathy in diseases classified elsewhere; J84.89 Other specified interstitial pulmonary diseases; I48.0 Paroxysmal atrial fibrillation; Z79.52 Long term (current) use of systemic steroids; Z86.711 Personal history of pulmonary embolism; Z79.01 Long term (current) use of anticoagulants; N18.32 Chronic kidney disease, stage 3b; Z86.718 Personal history of other venous thrombosis and embolism; I35.0 Nonrheumatic aortic (valve) stenosis; D71 Functional disorders of polymorphonuclear neutrophils; D50.9 Iron deficiency anemia, unspecified; J44.9 Chronic obstructive pulmonary disease, unspecified; M81.0 Age-related osteoporosis without current pathological fracture; E03.9 Hypothyroidism, unspecified
CPT/HCPCS: 36415; 71045; 71046; 71260; 80048; 80053; 80061; 80069; 80076; 81003; 82803; 83540; 83550; 83605; 83735; 83880; 84145; 84439; 84443; 84484; 85018; 85025; 85027; 85610; 85730; 86140; 87086; 87635; 93005; 93306; 94640; 94664; 94761; 97116; 97161; 97165; 97530; 97535; 99284; 99285; G0378; A9270; J1940; J2930; J7050; J7120; J7512; Q9967

== ENCOUNTER 2022-06-01 12:45 | Inpatient (IN) | payer OTHER, SELFPAY ==
[2022-06-01] VITALS (10 sets, daily range): BP systolic 122–128; BP diastolic 56–61; PULSE 77–109; RESP 24–54; TEMP 36.6–37.1; O2SAT 10–93; BMI 22.6
--- NOTE | 2022-06-01 13:25 | XR_ITS ---
Final Report Patient: DENNIS KOCH Facility:?[facility] Patient ID:?[id number] Site Patient ID:?[id number]. Site :?[id number] Study:?XRay Chest 1 VIEW PORTABLE-06/01/2022 1:53:32 PM Ordering Physician:Arielle Martinez Final Report: INDICATION: SOB. TECHNIQUE: Sitting portable AP image of the chest. COMPARISON: Chest CT of 05/21/2022. FINDINGS: Shallow inspiration with patchy infiltrates throughout both lungs. No pleural effusion. Heart size within normal limits. Pulmonary veins cannot be assessed due to the infiltrates. Thoracic spine rods. IMPRESSION: Shallow inspiration and patchy infiltrates throughout both lungs. Dictated by Jayesh Moran MD @ 06/01/2022 2:06:10 PM (Electronic Signature)
--- NOTE | 2022-06-01 13:29 | ED_ITS ---
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 She apparently lives independently in [place]. She has had breathing issue since she went home with exertion. She was to be on 1 L at rest and 3 L with exertion. She presents here with an O2 sat of 78%. She reports she has had intermittent cough but not more than usual, no chest pain, no leg swelling or edema, no fevers chills or COVID symptoms. She states she feels short of breath all the time ?and she was brought in by ambulance. Related Data Home Medications Medication Instructions Recorded Confirmed acetaminophen 325 mg tablet 650 mg PO Q4H PRN 05/20/22 06/01/22 albuterol sulfate 90 mcg/actuation 1 inh INHALATION Q6H PRN 05/20/22 06/01/22 aerosol inhaler (Ventolin HFA) azelastine 205.5 mcg (0.15 %) 2 spray INTRANASAL BID 05/20/22 06/01/22 nasal spray diltiazem HCl 360 mg 360 mg PO DAILY 05/20/22 06/01/22 capsule,extended release 24 hr docusate sodium 100 mg capsule 100 mg PO BID PRN 05/20/22 06/01/22 ferrous gluconate 324 mg (38 mg 324 mg PO DAILY 05/20/22 06/01/22 iron) tablet fluticasone propionate 50 1 spray INTRANASAL BID 05/20/22 06/01/22 mcg/actuation nasal spray,suspension folic acid 1 mg tablet 1 mg PO DAILY 05/20/22 06/01/22 levothyroxine 50 mcg tablet 50 mcg PO DAILY 05/20/22 06/01/22 metoprolol tartrate 100 mg tablet 100 mg PO BID 05/20/22 06/01/22 montelukast 10 mg tablet 10 mg PO HS 05/20/22 06/01/22 (Singulair) omeprazole 20 mg capsule,delayed 20 mg PO DAILY 05/20/22 06/01/22 release ondansetron 4 mg disintegrating 4 mg PO Q8H PRN 05/20/22 06/01/22 tablet prednisone 5 mg tablet 5 mg PO DAILY 05/20/22 06/01/22 sodium chloride 0.65 % nasal spray 1 spray INTRANASAL Q3H PRN 05/20/22 06/01/22 aerosol (Deep Sea Nasal) warfarin 2.5 mg tablet (Jantoven) 2.5 mg PO .UD 06/01/22 06/01/22 Previous Rx's Medication Instructions Recorded Home Oxygen #1 ea 05/28/22 albuterol sulfate 2.5 mg/3 mL 2.5 mg (3 mL) NEB Q2H PRN #60 ml 05/28/22 (0.083 %) solution for nebulization spironolactone 25 mg tablet 12.5 mg PO DAILY #15 tab 05/28/22 warfarin 5 mg tablet (Jantoven) 5 mg PO MOWEFR@1700 #12 tab 05/28/22 Home Oxygen #1 ea 05/30/22 Allergies Allergy/AdvReac Type Severity Reaction Status Date / Time azithromycin Allergy Intermediate Rash Verified 05/21/22 10:49 cultivated oat pollen Allergy Severe SOB Uncoded 05/21/22 10:49 Review of Systems Status of ROS: Reports: 10 or more systems reviewed and unremarkable except as noted in History and below [facility] Medical History Acute systolic heart failure due to valvular disease Aortic stenosis Cataract Chronic kidney disease FH: total abdominal hysterectomy and bilateral salpingo-oophorectomy History of pulmonary embolism Hypertension Hypothyroidism Interstitial lung disease due to granulomatous disease Iron deficiency anemia Lumbar degenerative disc disease On prednisone therapy Osteoporosis Paroxysmal A-fib Pulmonary alveolar hemorrhage Tubulovillous adenoma of colon Surgical History H/O breast biopsy History of back surgery History of total abdominal hysterectomy and bilateral salpingo-oophorectomy S/P thyroidectomy Family History Mother Ovarian cancer Maternal Grandmother Ovarian cancer Sister Ovarian cancer Social History Narrative: she lives alone in her own home in [place]. She is . Cats. Lifetime nonsmoker. Healthcare power of assistant attorney general is a friend from [place]. [place]. Smoking Status: Former smoker Second hand tobacco smoke exposure: Yes How often do you have a drink containing alcohol: never AUDIT-C Alcohol total score: 0 Non-prescribed substance use: denies use Exam Narrative: Exam Narrative: Objective: In general the patient is alert, talks in short sentences, is noncyanotic O2 sat is 70% when she arrived on room air 90-93% on oxygen face mask non- rebreather Neck is supple Chest diffuse crackles noted in the lungs, I do not hear any wheezing Abdomen benign soft Extremities are no edema neurologic nonfocal in upper lower extremities, good peripheral perfusion Skin warm and dry Const: Vital Signs, click to edit/add: Vital Signs - 24 hr 06/01/22 12:50 06/01/22 13:00 06/01/22 14:23 Temperature 98 F Pulse Rate [Right Pulse Oximeter] 106 H 108 H Respiratory Rate 54 H 24 Blood Pressure [Le ft Upper Arm] 122/56 L 127/61 Pulse Oximetry 78 L 93 10 L Course Vital Signs Vital signs: Initial Vital Signs Temperature 98 F 06/01/22 12:50 Temperature Source Temporal Artery Scan 06/01/22 12:50 Pulse Rate 106 H 06/01/22 12:50 Respiratory Rate 54 H 06/01/22 12:50 Blood Pressure 122/56 L 06/01/22 12:50 Blood Pressure Mean 78 06/01/22 12:50 Blood Pressure Position Supine 06/01/22 12:50 Pulse Oximetry 78 L 06/01/22 12:50 Oxygen Delivery Method 06/01/22 12:50 Oxygen Flow Rate 8 06/01/22 12:50 Vital Signs Temperature 98 F 06/01/22 12:50 Pulse Rate 106 H 06/01/22 12:50 Respiratory Rate 54 H 06/01/22 12:50 Blood Pressure 122/56 L 06/01/22 12:50 Pulse Oximetry 78 L 06/01/22 12:50 Temperature 98 F 06/01/22 12:50 Pulse Rate 108 H 06/01/22 13:00 Respiratory Rate 24 06/01/22 13:00 Blood Pressure 127/61 06/01/22 13:00 Pulse Oximetry 10 L 06/01/22 14:23 Medical Decision Making MDM Narrative Medical decision making narrative: Patient was discharged with respiratory failure recently and hypoxia, started on oxygen, she has been on inhalers at home. She also takes Coumadin for paroxysmal AFib. She has been on oxygen at home. At this point I would recommend the patient get the workup as above including a chest x-ray IV steroids, repeat COVID test, and possibly be admit for oxygen use and adjustment of her oxygen level at home. Will see what her x-ray looks like and how she responds to medication above. 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
--- NOTE | 2022-06-01 14:47 | RESP.RT ---
Patient arrived via EMS after Respiratory decline at Home. Reported patient was on Non-Rebreather when EMS arrived, they gave patient DuoNeb in route, and placed patient on 6 Lpm Nasal Cannula. On arrival during bed transfer patient SaO2 decreased to 64%, on 6 Lpm Nasal Cannula, respiratory rate 55/minute, breathing shallow, labored, accessory muscle in use. Bilateral breath sounds, diminished all de jesus with Inspiratory fine crackles and Expiratory wheeze, with end grunt noted. At 12:50 patient was placed on OxyMask at 10 Lpm, SaO2 increases from 75%, to 82%, respiratory rate remains in the 40's. Patient has loose, congested, weak non-productive cough. With any Nursing maneuvers patient drops her SaO2 to mid 70%, During X-ray being taken patient decreased SaO2 63%, at 01:20 pm patient placed on Non-Rebreather 10 Lpm. at 02:00 pm patients had increased SaO2 92-93%, respiratory rate still mid 40's/minute. Patient has Home Oxygen. Home Respiratory medications. History of interstitial lung disease.
[2022-06-01 15:08] LABS: SARS PCR* Negative SARS-CoV-2 (Negative)
--- NOTE | 2022-06-01 15:10 | ED.NURSE ---
Attempted to place IV, infiltrated on insertion. Another RN attempting to obtain IV access with doppler ultrasound. Lab called to draw patient.
[2022-06-01 15:34] LABS: HCO3 VBG 25 mmol/L (21-28); Lactate* 1.7 mmol/L (0.5-1.9); PCO2 VBG 41 mmHG (40-50); PO2 VBG 23.5 mmHG (25-47); pH VBG 7.386 (7.32-7.43)
[2022-06-01 15:35] LABS: Basophils Percent Auto 0.2 % (0.0-3.0); Eosinophils Percent Auto 0.2 % (0.0-7.0); Immature Granulocytes Abs Auto 0.38 K/uL (0.00-0.30); Mean Corpuscular HGB Conc 32 gm/dL (32-36); Mean Corpuscular Hemoglobin 30 pg (26-34); Mean Corpuscular Volume 93 fL (80-100); Monocytes Percent Auto 6.9 % (0.0-11.0); Neutrophils Percent Auto 85.6 % (42.0-72.0); Platelet Count* 343 K/uL (140-440); RDW Coefficient of Variation % 13.3 % (11.5-15.5); Red Blood Count 3.64 m/uL (4.00-5.20); White Blood Count* 18.04 K/uL (4.50-11.00)
[2022-06-01 15:39] LABS: Slide Review Reflex No
[2022-06-01 15:50] LABS: Chloride* 103 mmol/L (96-114); Potassium* 4.8 mmol/L (3.6-5.1); Sodium* 134 mmol/L (135-149)
[2022-06-01 15:52] LABS: Creatinine* 1.4 mg/dL (0.5-1.5); Estimated Glomerular Filt Rate 38.51
[2022-06-01 15:53] LABS: Blood Urea Nitrogen* 32 mg/dL (7-30); Calcium* 9.2 mg/dL (8.4-10.6); Carbon Dioxide* 26 mmol/L (20-32); Glucose* 111 mg/dL (60-115); INR 2.86 (0.91-1.10); Prothrombin Time 30.3 Seconds
[2022-06-01] MEDS: ASPIRIN 81 MG TAB.CHEW 324 MG PO (15:58)
--- NOTE | 2022-06-01 15:58 | ED.NURSE ---
Anesthesia attempting to start IV.
--- NOTE | 2022-06-01 15:59 | P.IMHP_ITS ---
Hospitalist- H&P: JILLIAN History of Present Illness Date Seen: 06/01/22 Chief complaint: Shortness of Breath Narrative: Saima Keene is a 77 year old female who is here for shortness of breath and weakness. She was discharged 2 days ago from a prolonged hospital stay for acute on chronic respiratory failure with hypoxia that was multifactorial. 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 She has also been on chronic anticoagulation with Coumadin for history of PEs and paroxysmal atrial fibrillation. She was discharged home on oxygen, which was new for her. She was also prescribed albuterol nebs, but notes that when she went to [facility] to pick them up, they gave her the vials but not the machine. Therefore she was unable to use them for shortness of breath. During hospital stay she was also treated for diastolic heart failure with diuresis, but then developed orthostatic hypotension for which she was given IV fluids. She also had an echocardiogram early in that hospital stay. EF was 65-70%. Due to orthostatic hypotension the furosemide that she had been getting in the hospital was discontinued altogether and her usual dose of spironolactone was halved. Upon returning home she noted weakness and felt even weaker the next day. She also felt more short of breath. She says she called someone from the hospital who told her that if these symptoms persisted she should return for re- evaluation. She feels even more weak and short of breath today. She had a gentle fall to the ground this morning. Denies loss of consciousness and denies any trauma from the fall. Her neighbors were checking on her and helped her calling EMS. A police radio dispatcher arrived 1st and had her on oxygen via mask when EMS arrived. In the ER she required non-rebreather to keep her oxygen sats 90% at rest. With activity, such as getting up to the bathroom, she would drop into the 70s to 80s despite being on oxygen. She is feeling a bit better now after getting and DuoNeb and Solu-Medrol as well as being on a non-rebreather. Also of note is that she says it has been 2 days since she has had a bowel movement. This is not completely unusual for her however. 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 Iron deficiency anemia Lumbar degenerative disc disease Mixed dyslipidemia On prednisone therapy Orthostatic hypotension Osteoporosis Paroxysmal A-fib Prediabetes Pulmonary alveolar hemorrhage Seasonal allergies Spinal stenosis of lumbar region with radiculopathy Surgical History H/O bilateral cataract extraction H/O breast biopsy History of back surgery History of total abdominal hysterectomy and bilateral salpingo-oophorectomy S/P thyroidectomy Tubulovillous adenoma of colon Family History Mother Ovarian cancer Maternal Grandmother Ovarian cancer Sister Ovarian cancer Father High blood pressure Social History Narrative: She lives alone in her own home in [place]. She is and has cats. She has neighbors who check in on her and caregivers for her and her cats. Lifetime nonsmoker. Healthcare power of tax associate attorney is a friend from [place]. Wishes to be a full code. Highest level of school completed/degree received: Associate degree: occupational, technical, vocational program Smoking Status: Never smoker Second hand tobacco smoke exposure: Yes (Her smoked for a few years when they were first .) How often do you have a drink containing alcohol: never AUDIT-C Alcohol total score: 0 Non-prescribed substance use: denies use Caffeine: Yes (about 2 cans cola daily) service: No Meds Home Medications and Allergies Home Medications Medication Instructions Recorded Confirmed Type acetaminophen 325 mg tablet 650 mg PO Q4H PRN 05/20/22 06/01/22 History albuterol sulfate 90 mcg/actuation 1 inh INHALATION Q6H PRN 05/20/22 06/01/22 History aerosol inhaler (Ventolin HFA) azelastine 205.5 mcg (0.15 %) 2 spray INTRANASAL BID 05/20/22 06/01/22 History nasal spray diltiazem HCl 360 mg 360 mg PO DAILY 05/20/22 06/01/22 History capsule,extended release 24 hr docusate sodium 100 mg capsule 100 mg PO BID PRN 05/20/22 06/01/22 History ferrous gluconate 324 mg (38 mg 324 mg PO DAILY 05/20/22 06/01/22 History iron) tablet fluticasone propionate 50 1 spray INTRANASAL BID 05/20/22 06/01/22 History mcg/actuation nasal spray,suspension folic acid 1 mg tablet 1 mg PO DAILY 05/20/22 06/01/22 History levothyroxine 50 mcg tablet 50 mcg PO DAILY 05/20/22 06/01/22 History metoprolol tartrate 100 mg tablet 100 mg PO BID 05/20/22 06/01/22 History montelukast 10 mg tablet 10 mg PO HS 05/20/22 06/01/22 History (Singulair) omeprazole 20 mg capsule,delayed 20 mg PO DAILY 05/20/22 06/01/22 History release ondansetron 4 mg disintegrating 4 mg PO Q8H PRN 05/20/22 06/01/22 History tablet prednisone 5 mg tablet 5 mg PO DAILY 05/20/22 06/01/22 History sodium chloride 0.65 % nasal spray 1 spray INTRANASAL Q3H PRN 05/20/22 06/01/22 History aerosol (Deep Sea Nasal) warfarin 2.5 mg tablet (Jantoven) 2.5 mg PO .UD 06/01/22 06/01/22 History Home Medication Comments: She says her caregiver set up the meds for her. Her caregiver asked the patient about being on Lasix, and the patient told her she had never been on it before. It is unclear if this was a medication she was taking at home last few days. Also, she was unable to use her albuterol nebulizers because [facility] gave her the vials, but did not give her a machine. Allergies Allergy/AdvReac Type Severity Reaction Status Date / Time azithromycin Allergy Intermediate Rash Verified 05/21/22 10:49 cultivated oat pollen Allergy Severe SOB Uncoded 05/21/22 10:49 Exam Narrative: Exam Narrative: General: Moderate respiratory distress. Tachypneic. Awake alert oriented x3. HEENT: Normocephalic atraumatic, pupils equally round and reactive to light and accommodation. Oropharynx clear. Mucous membranes are dry. No cervical lymphadenopathy, thyromegaly or carotid bruits. Cardiovascular: Mildly tachycardic, regular. No murmurs, gallops, or rubs. Chest: Some retractions when turning so that I may listen to her back. Coarse with rhonchi and occasional scattered expiratory wheeze. Abdomen: Bowel sounds present. Soft, nondistended, nontender. No hepatosplenomegaly or masses. Extremities: Trace bilaterally ankle edema, no cyanosis or clubbing. Skin: No jaundice, no pallor, no rashes. Const: Vital Signs, click to edit/add: Vital Signs - 24 hr 06/01/22 12:50 06/01/22 13:00 06/01/22 14:23 Temperature 98 F Pulse Rate [Right Pulse Oximeter] 106 H 108 H Respiratory Rate 54 H 24 Blood Pressure [Le ft Upper Arm] 122/56 L 127/61 Pulse Oximetry 78 L 93 10 L Hospitalist - H&P: Result Labs Labs: Short CBC 06/01/22 Range/Units 15:24 WBC 18.04 H (4.50-11.00) K/uL Hgb 11.0 L (12.0-16.0) gm/dL Hct 34.0 (33.0-51.0) % Plt Count 343 (140-440) K/uL BMP 06/01/22 15:24 Sodium 134 L Potassium 4.8 Chloride 103 Carbon Dioxide 26 BUN 32 H Creatinine 1.4 Glucose 111 Calcium 9.2 ECG Attestation: I personally reviewed and interpreted this ECG as follows: ECG interpretation date: 06/01/22 Prior ECG tracings: available for review Interpretation: Normal sinus rhythm. Heart rate 96 beats per minute. QTC interval is 454 milliseconds. Left ventricular hypertrophy with repolarization abnormality. Prior inferior infarct, which is unchanged from EKG done about a week and half ago during the prior hospitalization. Imaging Chest x-ray: Attestation: I have reviewed the pertinent imaging results. Radiologist's impression: Shallow inspiration and patchy infiltrates throughout both lungs. Assessment and Plan Assessment and plan (1) Acute on chronic respiratory failure with hypoxia: Problem comment: Multifactorial secondary to interstitial lung disease and heart failure, and possibly exacerbation of diastolic heart failure. Status: Acute Assessment and Plan: Elevated respiratory rate and mildly tachycardic, moderate respiratory distress. I will start her on BiPAP which will help with both respiratory distress and pulmonary edema. Increase prednisone, add duo nebs and continuous pulse oximetry. Recheck a chest x-ray in the morning to help determine if this is mostly secondary to pulmonary edema versus infiltrate. Patient does have a history of PEs and has been on chronic anticoagulation with Coumadin. During her recent hospitalization she reached a donovan of 1.83 for her INR on 05/29/2022. Her INR is therapeutic today. I think the infiltrates versus pulmonary edema are most likely cause of acute respiratory failure, which would make a diagnosis of acute PE much less likely. If she does not improve with diuresis and antibiotics, consideration could be given to a CT chest with IV contrast for PE protocol. Caution would need to be taken however since her creatinine is 1.4 and she is getting diuretics. (2) Acute on chronic diastolic CHF (congestive heart failure), NYHA class 3: Problem comment: Ejection fraction of 65-70% on 05/23/2022. Spectral Doppler showed grade 1 pattern of LV diastolic filling. Status: Acute Assessment and Plan: EF was assessed 10 days ago, so I will not repeat this study. Start BiPAP as above. Additionally continue diuresis started in the emergency department with IV furosemide. She is also on spironolactone. Monitor daily weights and I's and O's. (3) Bacterial pneumonia: Problem comment: Possible Status: Suspected Assessment and Plan: This is unclear. She has not been febrile or had a cough. There are infiltrates on chest x-ray, although these may be due to pulmonary edema. She has a markedly elevated white count, but she has been on chronic prednisone with an increase in the dose during a recent hospitalization. I will start her on levofloxacin, but if her chest x-ray improves dramatically overnight with diuresis and she remains afebrile, this could be discontinued. 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 follows with pulmonology. 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 Restrictive pattern with mild obstructive pattern on PFTs, 2021. Status: Acute (5) Valvular cardiomyopathy: Status: Acute (6) Aortic stenosis: Problem comment: last echo 05/23/22. Normal EF. Normal right and left ventricular function. Aortic valve is sclerotic. Moderate stenosis. Peak velocity 3.2 m/sec, mean gradient 18 mm Hg. LAMONT calculates to 1 cm2. Status: Acute (7) On prednisone therapy: Problem comment: Prior to May 2022 had been on a tapering dose of 5 mg alternating with 2.5 mg every other day. Receiving this in association with underlying pulmonary interstitial lung disease and COPD. Status: Acute Assessment and Plan: Due to acute respiratory failure, she was given Solu-Medrol in the emergency department. Start 40 mg p.o. daily in divided doses so that she does not get the full 40 mg tonight before bed. If she develops orthostatic hypotension during this hospitalization, especially while tapering prednisone, consider adrenal crisis. (8) Chronic kidney disease: Problem comment: stage 3b from [facility] record, baseline Cr 1.2-1.4 Status: Acute Assessment and Plan: Currently at baseline. Monitor daily while diuresing. (9) Hypertension: Status: Acute Assessment and Plan: Continue usual home medications. (10) Paroxysmal A-fib: Problem comment: Rate controlled and on anticoagulation Status: Acute Assessment and Plan: I think the tachycardia is likely secondary to hypoxia and increased work of breathing. Tachycardia is mild. Treat with BiPAP and monitor on cardiac telemetry. Continue rate control with metoprolol and diltiazem and anticoagulation with Coumadin. (11) History of pulmonary embolism: Problem comment: First occurrence 10/10 provoked, then 2019 unprovoked. Chronic anticoagulation. History of DVTs as well. Status: Acute (12) Hypothyroidism: Problem comment: acquired per [facility] record Status: Acute Assessment and Plan: Continue outpatient dosing of levofloxacin. (13) Iron deficiency anemia: Status: Acute Assessment and Plan: Stable. Continue ferrous gluconate. (14) Constipation: Status: Acute Assessment and Plan: Stop Docusate. Start daily senna and p.r.n. MiraLax. (15) Chronic anticoagulation: Problem comment: paroxysmal a fib and h/o PE x 2 Status: Chronic Assessment and Plan: INR is therapeutic, so she is low risk for PE or DVT at this time. She is unsure about her warfarin dose. This will need to be clarified tomorrow. I will give her her warfarin 2.5 mg tonight. Also, since she will be on levofloxacin, check daily INRs.
[2022-06-01 16:03] LABS: NT Pro B Type NatriureticPept* 497 PG/mL (0-450)
[2022-06-01] MEDS: METHYLPREDNISOLONE SOD SUCC 62.5 MG/ML (125) 125 MG IVP (16:04)
[2022-06-01] MEDS: FUROSEMIDE 10 MG/ML inj 40 MG IV ×2 (16:04→18:18)
[2022-06-01 16:10] LABS: Troponin I* < 0.01 ng/mL (0.01-0.04)
--- NOTE | 2022-06-01 16:43 | RESP.RT ---
Assisted with patient transport to Med/Surg, placed on Non-rebreather 10 Lpm, SaO2 87%. BiPAP on standby at bedside, pre set IPAP 8, EPAP4, FiO2 60%, rate S/T10,
[2022-06-01] MEDS: predniSONE 5 MG TABLET 20 MG PO ×2 (18:17→21:48)
[2022-06-01] MEDS: levoFLOXacin 500 MG TABLET PO (18:18)
[2022-06-01] MEDS: IPRAT-ALBUT 0.5-2.5 MG/3 ML NEB 1 NEB IH (18:19)
[2022-06-01] MEDS: WARFARIN 2.5 MG TABLET PO (18:30)
--- NOTE | 2022-06-01 19:56 | PC.NURSE ---
Admission-- Pleasant and cooperative pt admitted to critical care unit this evening. VSS, though tachypneic with initial RR in 40s and pt is afebrile. Pt placed on bipap and has been maintaining O2 sats >91% on bipap. See charting for details. EKG completed upon arrival and given to MD. Telemetry shows NSR. Report to TIMI Hooker.
[2022-06-01] MEDS: FLUTICASONE PROPIONATE NASAL 1 SPRAY NOSTRIL-B (21:47)
[2022-06-01] MEDS: MONTELUKAST 10 MG TABLET PO (21:47)
[2022-06-01] MEDS: SENNOSIDES/DOCUSATE TABLET 2 TAB PO (21:47)
[2022-06-01] MEDS: METOPROLOL TARTRATE 100 MG TABLET PO (21:48)
[2022-06-02] VITALS (10 sets, daily range): BP systolic 96–139; BP diastolic 50–70; PULSE 68–76; RESP 24–36; TEMP 36.1–36.2; O2SAT 88–91
[2022-06-02] MEDS: IPRAT-ALBUT 0.5-2.5 MG/3 ML NEB 1 NEB IH ×3 (00:12→11:12)
--- NOTE | 2022-06-02 06:00 | CRLHL7_ITS ---
For Patients: As a result of the Century Cures Act, medical imaging exams and procedure reports are released immediately into your electronic medical record. You may view this report before your referring provider. If you have questions, please contact your health care provider. INDICATION: Follow-up infiltrates. TECHNIQUE: Chest 1 view. COMPARISON: Chest radiograph 06/01/2022. FINDINGS: Low lung volumes with bibasilar atelectasis. There are coarse interstitial opacities throughout both lungs. The previously seen patchy infiltrates are less apparent. No large effusions. No pneumothorax. The heart appears mildly prominent in size but may be exaggerated by portable technique and low lung volumes. Thoracolumbar spine hardware. IMPRESSION: Diffuse bilateral coarse interstitial opacities may be infectious/inflammatory or due to edema. Dictated by Oumou Love MD @ 06/02/2022 7:53:10 AM (Electronically Signed)
--- NOTE | 2022-06-02 06:22 | REH.OT ---
Nurse note 19-: Pt pleasant and cooperative, A&O. Afebrile. Pt remains on BiPAP at 60% FiO2 with oxygen saturations 88-92% but desaturates to the low 70's while pivoting 1A to BSC with BiPAP on, RR increases to 50's, pt recovers quickly once back in bed. Tele SA. Pt denies pain, SOB, CP, and N/V.
[2022-06-02] MEDS: FUROSEMIDE 10 MG/ML inj 40 MG IV ×3 (06:28→16:11)
[2022-06-02 06:52] LABS: Basophils Percent Auto 0.1 % (0.0-3.0); Hematocrit 33.9 % (33.0-51.0); Immature Granulocytes Abs Auto 0.09 K/uL (0.00-0.30); Lymphocytes Percent Auto 6.6 % (20-44); Mean Corpuscular HGB Conc 32 gm/dL (32-36); Mean Corpuscular Hemoglobin 30 pg (26-34); Mean Corpuscular Volume 93 fL (80-100); Monocytes Percent Auto 2.1 % (0.0-11.0); Neutrophils Percent Auto 90.5 % (42.0-72.0); Platelet Count* 339 K/uL (140-440); RDW Coefficient of Variation % 13.1 % (11.5-15.5); Red Blood Count 3.65 m/uL (4.00-5.20); White Blood Count* 13.72 K/uL (4.50-11.00)
[2022-06-02 06:53] LABS: Slide Review Reflex No
[2022-06-02 07:07] LABS: INR 4.15 (0.91-1.10); Prothrombin Time 40.3 Seconds
[2022-06-02 08:11] LABS: Carbon Dioxide* 24 mmol/L (20-32); Chloride* 102 mmol/L (96-114); Glucose* 114 mg/dL (60-115); Potassium* 4.8 mmol/L (3.6-5.1); Sodium* 137 mmol/L (135-149)
[2022-06-02] MEDS: OMEPRAZOLE 20 MG CAPSULE DR PO (09:52)
[2022-06-02] MEDS: METOPROLOL TARTRATE 100 MG TABLET PO (09:53)
[2022-06-02] MEDS: LEVOTHYROXINE 50 MCG TABLET PO (09:53)
[2022-06-02] MEDS: FERROUS SULFATE 325 MG TABLET PO (09:53)
[2022-06-02] MEDS: FOLIC ACID 1 MG TABLET PO (09:53)
[2022-06-02] MEDS: SPIRONOLACTONE 25 MG TABLET PO (09:54)
[2022-06-02] MEDS: FLUTICASONE PROPIONATE NASAL 1 SPRAY NOSTRIL-B (09:54)
[2022-06-02] MEDS: predniSONE 5 MG TABLET 20 MG PO ×2 (09:54→16:11)
--- NOTE | 2022-06-02 10:41 | REH.PT ---
Orders received for PT/OT eval and treat. Patient not ready for therapies at this time due to resp status. Will attempt again tomorrow.
[2022-06-02] MEDS: dilTIAZem 120 MG CAP.ER.24H 360 MG PO (11:10)
[2022-06-02 11:28] LABS: Blood Urea Nitrogen* 42 mg/dL (7-30); Creatinine* 1.6 mg/dL (0.5-1.5); Est. Creatinine Clearance* 20.81; Estimated Glomerular Filt Rate 32.81
[2022-06-02 11:29] LABS: Calcium* 9.7 mg/dL (8.4-10.6)
[2022-06-02] MEDS: levoFLOXacin 250 MG TABLET PO (11:53)
--- NOTE | 2022-06-02 12:15 | PM.DS1 ---
DS: Providers Provider Time Seen by Provider: 08:00 Date Seen: 05/30/22 Date of admission: 06/01/22 15:17 Primary care physician: Chase Hernandez MD Admitting Clinician: Jayesh Montelongo MD Consults: 06/01/22 17:13 Consult to Physical Therapy [CONS] Routine Comment: Reason(s) for PT Consult:: Evaluate and Treat Any Restrictions?:: No Restrictions Consult to [employer] [CONS] Routine Comment: Reason for Consult:: Discharge Planning Needs 06/01/22 17:17 Consult to Occupational Therapy [CONS] Routine Comment: Reason(s) for OT Consult:: Evaluate and Treat Any Restrictions?:: No Restrictions 06/01/22 19:36 Consult to Occupational Therapy [CONS] Routine Comment: Reason(s) for OT Consult:: Evaluate and Treat Any Restrictions?:: No Restrictions Consult to Physical Therapy [CONS] Routine Comment: Reason(s) for PT Consult:: Evaluate and Treat Any Restrictions?:: No Restrictions Attending Physician on discharge: Marvel Isbell MD Date of Discharge: 05/30/22 DS: Diagnosis Discharge Diagnosis (1) Acute on chronic respiratory failure with hypoxia: Status: Acute Problem details: Multifactorial secondary to interstitial lung disease and heart failure, and possibly exacerbation of diastolic heart failure. 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 follows with pulmonology. 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 Restrictive pattern with mild obstructive pattern on PFTs, 2021. (3) Acute on chronic diastolic CHF (congestive heart failure), NYHA class 3: Status: Acute Problem details: Ejection fraction of 65-70% on 05/23/2022. Spectral Doppler showed grade 1 pattern of LV diastolic filling. (4) Chronic anticoagulation: Status: Chronic Problem details: paroxysmal a fib and h/o PE x 2 (5) Valvular cardiomyopathy: Status: Acute (6) Aortic stenosis: Status: Acute Problem details: last echo 05/23/22. Normal EF. Normal right and left ventricular function. Aortic valve is sclerotic. Moderate stenosis. Peak velocity 3.2 m/sec, mean gradient 18 mm Hg. LAMONT calculates to 1 cm2. (7) On prednisone therapy: Status: Acute Problem details: Prior to May 2022 had been on a tapering dose of 5 mg alternating with 2.5 mg every other day. Receiving this in association with underlying pulmonary interstitial lung disease and COPD. (8) Chronic kidney disease: Status: Acute Problem details: stage 3b from [facility] record, baseline Cr 1.2-1.4 (9) Hypertension: Status: Acute (10) Paroxysmal A-fib: Status: Acute Problem details: Rate controlled and on anticoagulation (11) History of pulmonary embolism: Status: Acute Problem details: First occurrence 10/10 provoked, then 2019 unprovoked. Chronic anticoagulation. History of DVTs as well. (12) Hypothyroidism: Status: Acute Problem details: acquired per [facility] record (13) Iron deficiency anemia: Status: Acute (14) Hypovolemia associated with diuresis: Status: Acute DS: Summary Hospital Course Hospital Course: 69-year-old female with known interstitial lung disease presents with worsening dyspnea over the last week. Longstanding diagnosis of interstitial lung disease, possible granulomatosis with polyangiitis, pulmonary emboli, aortic stenosis. She saw her trailer mechanic 3 weeks ago when she was doing well. At that time the recommendation was to try to taper down her prednisone. She ran out her 5 mg tablets and sounds like she had cut from 5 mg daily down to 2.5 mg daily. She had profound fatigue associated with this. Three or 4 days ago she started taking 5 mg daily again because she felt poorly. Nevertheless her breathing is not gotten better. Over the week she noted her oxygen saturations at home were decreasing into the 80s and then today upper 70s on room air. She has had progressive exertional dyspnea associated with this. She has not had any fever. She reports a cough when she takes a deep breath. It is nonproductive. She has not seen any discolored sputum or blood in her sputum. She reports some heaviness in her chest associated with this. She reports that there are some environmental exposures primarily to dust and pollen that might be making things worse for her as well. 77-year-old female with 1 week of progressive dyspnea, with admission diagnoses and plan as follows: 1. Exacerbation of chronic interstitial lung disease with acute on chronic hypoxia. Previously on home O2 but not recently. Now needing oxygen to maintain O2 sats above 90%. This could be caused by hurt tapering her steroids recently. Could be due to environmental factors. Could be due to infection. Also underlying valvular heart disease. Uncertain whether heart disease is playing a role at this time. History of recurrent pulmonary emboli but chronically anticoagulated. Will treat with high-dose steroids, inhaled bronchodilators which she says have helped to some degree. 2. Interstitial lung disease. Saw her trailer mechanic about 3 weeks ago when she was doing fairly well. PFTs showed moderate restriction. Underlying pathology is uncertain. 3. History of recurrent pulmonary hemorrhage and clinical diagnosis of GPA, granulomatosis with polyangiitis. Pulmonary hemorrhage in 2018. ANCA has been negative. On chronic prednisone 4. recurrent pulmonary emboli. Patient had a provoked pulmonary emboli September 2018 and then unprovoked pulmonary emboli in 2019. Patient reports an episode of DVT as well. On anticoagulation chronically. 5. History of atrial fibrillation 6. Moderate aortic stenosis seen on echocardiogram from 04/09/2022. Echo is otherwise unremarkable 7. History of iron deficiency anemia with acute anemia. Two months ago her hemoglobin was 12.6, now 8.5. Previously on chronic iron but stopped recently due to the pills being too big to swallow. No history of bleeding problems or gastrointestinal hemorrhage she is aware of. In the somewhat distant past she has had upper and lower endoscopy. She did have a polyp in her proximal colon at some point in the past. Uncertain pathology. Now on chronic anticoagulation due to recurrent PE. She tells me today that her stools have been dark in the last couple days. Suspect acute GI bleeding as the cause of her acute anemia. Probably also contributing to her acute dyspnea. Will hold warfarin and evaluate for possible endoscopy. May need bridging anticoagulation depending on the timing of this evaluation. 8. Chronic sinus disease with perforated nasal septum suspicious for small-vessel vasculitis 9. History of asthma. She does get relief from albuterol by her description. PFTs have shown restrictive disease, not obstructive disease. 10. Chronic steroid use. Previously on 20 mg daily but now weaned down to 5 mg daily and recent attempt to wean down from 5 mg in the past 3 weeks 11. Stage IIIB chronic kidney disease 12. Hypothyroidism on replacement 13. Hypertension In addition to the above interventions, patient was also started on fairly aggressive diuresis. On presentation she was on no diuretic whatsoever. For while she was on furosemide 80 mg in the morning and 40 mg in the afternoon. She continued to be on her spironolactone 25 mg every morning. After several days she started to become quite orthostatic from this. She lost a total of 4 kg while in the hospital. Eventually we stopped all of her furosemide and decrease her dose of spironolactone down to 12.5 mg every morning. Ultimately her orthostasis resolved. Initially required low-flow oxygen 5 liters/minute via nasal cannula even at rest. Over time we decreased her oxygen need all the way down to 1 liter/minute via nasal cannula continuously at 3 liters/minute via nasal cannula with any activity. Throughout her hospital stay patient variously expressed desire to be discharged to her home or [place] [facility]. She expressed anxiety about being in her home with oxygen. Eventually we were able to get a definitive answer from the [place] [facility] that patient did not meet eligibility criteria for [facility] [place]. Thus patient is discharged home with new set up for oxygen. Hospital staff spent a great deal of time reviewing her concerns about the oxygen use in the home. They expressed how to properly use the oxygen. They provided with her information regarding whom to call should she have additional questions when she does right home. She lives alone. Has friends and family that are supportive. Patient was agreeable to above stated plans and recommendations. Status at Discharge Cognitive/behavioral status at discharge: Patient mood and affect was somber and sad throughout much of the hospital stay. Declined any medication support in this regard. Thought seem to be fluid. She is alert, oriented to self, place, time, situation. Articulate and cooperative. Functional status at discharge: independent ambulation Overall status at discharge: patient is progressing back to baseline Time Spent with Patient Time attestation: Total time spent providing and/or coordinating discharge services: Time spent: Greater than 30 minutes Exam Narrative: Exam Narrative: She continues to have bibasilar inspiratory rales, right greater than left. Heart tones with regular rhythm, normal S1-S2. Abdomen with active bowel sounds, soft, nontender. Extremities without edema. Independent with transfers, station, and gait. Skin is warm, dry, intact. Const: Vital Signs, click to edit/add: Vital Signs - 24 hr 06/01/22 12:50 06/01/22 13:00 06/01/22 14:23 Temperature 98 F Pulse Rate Pulse Rate [Right Pulse Oximeter] 106 H 108 H Pulse Rate [Right Radial] Respiratory Rate 54 H 24 Blood Pressure [Le ft Upper Arm] 122/56 L 127/61 Blood Pressure [Ri ght Arm] Pulse Oximetry 78 L 93 10 L 06/01/22 16:05 07/10/22 16:37 06/01/22 17:45 Temperature 98.8 F Pulse Rate 95 Pulse Rate [Right Pulse Oximeter] 109 H Pulse Rate [Right Radial] 106 H Respiratory Rate 48 H 40 H Blood Pressure [Le ft Upper Arm] Blood Pressure [Ri ght Arm] 128/60 Pulse Oximetry 91 88 06/01/22 18:41 06/01/22 19:27 06/01/22 23:00 Temperature Pulse Rate Pulse Rate [Right Pulse Oximeter] Pulse Rate [Right Radial] 88 Respiratory Rate 37 H 37 H 24 Blood Pressure [Le ft Upper Arm] Blood Pressure [Ri ght Arm] Pulse Oximetry 91 91 90 06/01/22 23:24 06/02/22 00:15 06/02/22 04:45 Temperature 97 F L 97.2 F L Pulse Rate 77 Pulse Rate [Right Pulse Oximeter] Pulse Rate [Right Radial] 68 Respiratory Rate 24 26 H Blood Pressure [Le ft Upper Arm] Blood Pressure [Ri ght Arm] 96/50 L 139/57 L Pulse Oximetry 90 91 06/02/22 07:35 06/02/22 07:42 06/02/22 08:28 Temperature 97 F L Pulse Rate Pulse Rate [Right Pulse Oximeter] Pulse Rate [Right Radial] 73 74 Respiratory Rate 36 H 28 H 36 H Blood Pressure [Le ft Upper Arm] Blood Pressure [Ri ght Arm] 113/64 Pulse Oximetry 90 91 06/02/22 08:40 06/02/22 11:57 Temperature 97 F L Pulse Rate 75 Pulse Rate [Right Pulse Oximeter] Pulse Rate [Right Radial] Respiratory Rate 27 H Blood Pressure [Le ft Upper Arm] Blood Pressure [Ri ght Arm] 114/61 Pulse Oximetry 90 Documenting provider has reviewed patient's vital signs: yes DS: Data Data Completed and Pending Labs on day of discharge: Labs from last 24 hours 06/02/22 06/02/22 06/02/22 06:20 06:20 06:20 WBC 13.72 H RBC 3.65 L Hgb 11.0 L Hct 33.9 MCV 93 MCH 30 MCHC 32 RDW Coeff of Faustino 13.1 Plt Count 339 Neut % (Auto) 90.5 H Lymph % (Auto) 6.6 L [place] % (Auto) 2.1 Eos % (Auto) 0.0 Baso % (Auto) 0.1 Neut # (Auto) 12.40 H Lymph # (Auto) 0.90 [place] # (Auto) 0.30 Eos # (Auto) 0.00 Baso # (Auto) 0.00 Abs Immat Gran (auto) 0.09 INR 4.15 H VBG pH VBG pCO2 VBG pO2 VBG HCO3 Sodium 137 Potassium 4.8 Chloride 102 Carbon Dioxide 24 BUN 42 H Creatinine 1.6 H Estimated Creat Clear 20.81 Glucose 114 Lactate Calcium 9.7 Troponin I NT-Pro-B Natriuret Pep SARS-CoV-2 (PCR) 06/01/22 06/01/22 06/01/22 15:24 15:24 15:24 WBC RBC Hgb Hct MCV MCH MCHC RDW Coeff of Faustino Plt Count Neut % (Auto) Lymph % (Auto) [place] % (Auto) Eos % (Auto) Baso % (Auto) Neut # (Auto) Lymph # (Auto) [place] # (Auto) Eos # (Auto) Baso # (Auto) Abs Immat Gran (auto) INR 2.86 H VBG pH 7.386 VBG pCO2 41 VBG pO2 23.5 L VBG HCO3 25 Sodium 134 L Potassium 4.8 Chloride 103 Carbon Dioxide 26 BUN 32 H Creatinine 1.4 Estimated Creat Clear Glucose 111 Lactate 1.7 Calcium 9.2 Troponin I < 0.01 L NT-Pro-B Natriuret Pep 497 H SARS-CoV-2 (PCR) 06/01/22 06/01/22 15:24 13:50 WBC 18.04 H RBC 3.64 L Hgb 11.0 L Hct 34.0 MCV 93 MCH 30 MCHC 32 RDW Coeff of Faustino 13.3 Plt Count 343 Neut % (Auto) 85.6 H Lymph % (Auto) 5.0 L [place] % (Auto) 6.9 Eos % (Auto) 0.2 Baso % (Auto) 0.2 Neut # (Auto) 15.40 H Lymph # (Auto) 0.90 [place] # (Auto) 1.20 H Eos # (Auto) 0.00 Baso # (Auto) 0.00 Abs Immat Gran (auto) 0.38 H INR VBG pH VBG pCO2 VBG pO2 VBG HCO3 Sodium Potassium Chloride Carbon Dioxide BUN Creatinine Estimated Creat Clear Glucose Lactate Calcium Troponin I NT-Pro-B Natriuret Pep SARS-CoV-2 (PCR) Negative SARS-CoV-2 Discharge Plan Discharge Disposition: Home, Self-Care Date of Admission: 06/01/22 15:17 Attending Physician on Admission: Jayesh Montelongo Primary Care Provider: Chase Hernandez Condition: Stable Discharge Medications: No Action acetaminophen 325 mg tablet 650 mg PO Q4H PRN0RF albuterol sulfate [Ventolin HFA] 90 mcg/actuation HFA aerosol inhaler 1 inh inhalation Q6H PRN0RF azelastine 205.5 mcg (0.15 %) spray,non-aerosol 2 spray intranasal BID 0RF Rx Instructions: administer into each nostril diltiazem HCl 360 mg capsule,extended release 24hr 360 mg PO DAILY 0RF docusate sodium 100 mg capsule 100 mg PO BID PRN0RF fluticasone propionate 50 mcg/actuation spray,suspension 1 spray intranasal BID 0RF Rx Instructions: administer into each nostril folic acid 1 mg tablet 1 mg PO DAILY 0RF ferrous gluconate 324 mg (38 mg iron) tablet 324 mg PO DAILY 0RF levothyroxine 50 mcg tablet 50 mcg PO DAILY 0RF metoprolol tartrate 100 mg tablet 100 mg PO BID 0RF montelukast [Singulair] 10 mg tablet 10 mg PO HS 0RF omeprazole 20 mg capsule,delayed release(DR/EC) 20 mg PO DAILY 0RF ondansetron 4 mg tablet,disintegrating 4 mg PO Q8H PRN0RF prednisone 5 mg tablet 5 mg PO DAILY 0RF [place] Nasal 0.65 % aerosol,spray 1 spray intranasal Q3H PRN0RF albuterol sulfate 2.5 mg /3 mL (0.083 %) Solution For Nebulization 2.5 mg NEB Q2H PRNQty: 60 1RF warfarin [Jantoven] 5 mg Tablet 5 mg PO MOWEFR@1700 Qty: 12 1RF (DME) Home Oxygen Misc See Rx Instructions .Route Qty: 1 0RF Rx Instructions: 1 LPM via NC at rest, 3 LPM via NC with activity spironolactone 25 mg Tablet 12.5 mg PO DAILY Qty: 15 1RF (DME) Home Oxygen Misc See Rx Instructions .Route Qty: 1 0RF Rx Instructions: Frequency: continuous; Dosage: 1 LPM at rest, 3 LPM with activity; Route of administration: Nasal Canula; Duration: 99 months warfarin [Jantoven] 2.5 mg Tablet 2.5 mg PO .UD 0RF Label Comments: 1 TABLET (2.5MG) KENDELL ROSSI SAT Follow Up Appointments: Chase Hernandez MD [Primary Care Provider] - Forms: [employer] Info Instructions Hospital Course: 69-year-old female with known interstitial lung disease presents with worsening dyspnea over the last week. Longstanding diagnosis of interstitial lung disease, possible granulomatosis with polyangiitis, pulmonary emboli, aortic stenosis. She saw her trailer mechanic 3 weeks ago when she was doing well. At that time the recommendation was to try to taper down her prednisone. She ran out her 5 mg tablets and sounds like she had cut from 5 mg daily down to 2.5 mg daily. She had profound fatigue associated with this. Three or 4 days ago she started taking 5 mg daily again because she felt poorly. Nevertheless her breathing is not gotten better. Over the week she noted her oxygen saturations at home were decreasing into the 80s and then today upper 70s on room air. She has had progressive exertional dyspnea associated with this. She has not had any fever. She reports a cough when she takes a deep breath. It is nonproductive. She has not seen any discolored sputum or blood in her sputum. She reports some heaviness in her chest associated with this. She reports that there are some environmental exposures primarily to dust and pollen that might be making things worse for her as well. 77-year-old female with 1 week of progressive dyspnea, with admission diagnoses and plan as follows: 1. Exacerbation of chronic interstitial lung disease with acute on chronic hypoxia. Previously on home O2 but not recently. Now needing oxygen to maintain O2 sats above 90%. This could be caused by hurt tapering her steroids recently. Could be due to environmental factors. Could be due to infection. Also underlying valvular heart disease. Uncertain whether heart disease is playing a role at this time. History of recurrent pulmonary emboli but chronically anticoagulated. Will treat with high-dose steroids, inhaled bronchodilators which she says have helped to some degree. 2. Interstitial lung disease. Saw her trailer mechanic about 3 weeks ago when she was doing fairly well. PFTs showed moderate restriction. Underlying pathology is uncertain. 3. History of recurrent pulmonary hemorrhage and clinical diagnosis of GPA, granulomatosis with polyangiitis. Pulmonary hemorrhage in 2018. ANCA has been negative. On chronic prednisone 4. recurrent pulmonary emboli. Patient had a provoked pulmonary emboli September 2018 and then unprovoked pulmonary emboli in 2019. Patient reports an episode of DVT as well. On anticoagulation chronically. 5. History of atrial fibrillation 6. Moderate aortic stenosis seen on echocardiogram from 04/09/2022. Echo is otherwise unremarkable 7. History of iron deficiency anemia with acute anemia. Two months ago her hemoglobin was 12.6, now 8.5. Previously on chronic iron but stopped recently due to the pills being too big to swallow. No history of bleeding problems or gastrointestinal hemorrhage she is aware of. In the somewhat distant past she has had upper and lower endoscopy. She did have a polyp in her proximal colon at some point in the past. Uncertain pathology. Now on chronic anticoagulation due to recurrent PE. She tells me today that her stools have been dark in the last couple days. Suspect acute GI bleeding as the cause of her acute anemia. Probably also contributing to her acute dyspnea. Will hold warfarin and evaluate for possible endoscopy. May need bridging anticoagulation depending on the timing of this evaluation. 8. Chronic sinus disease with perforated nasal septum suspicious for small-vessel vasculitis 9. History of asthma. She does get relief from albuterol by her description. PFTs have shown restrictive disease, not obstructive disease. 10. Chronic steroid use. Previously on 20 mg daily but now weaned down to 5 mg daily and recent attempt to wean down from 5 mg in the past 3 weeks 11. Stage IIIB chronic kidney disease 12. Hypothyroidism on replacement 13. Hypertension In addition to the above interventions, patient was also started on fairly aggressive diuresis. On presentation she was on no diuretic whatsoever. For while she was on furosemide 80 mg in the morning and 40 mg in the afternoon. She continued to be on her spironolactone 25 mg every morning. After several days she started to become quite orthostatic from this. She lost a total of 4 kg while in the hospital. Eventually we stopped all of her furosemide and decrease her dose of spironolactone down to 12.5 mg every morning. Ultimately her orthostasis resolved. Initially required low-flow oxygen 5 liters/minute via nasal cannula even at rest. Over time we decreased her oxygen need all the way down to 1 liter/minute via nasal cannula continuously at 3 liters/minute via nasal cannula with any activity. Throughout her hospital stay patient variously expressed desire to be discharged to her home or [place] [facility]. She expressed anxiety about being in her home with oxygen. Eventually we were able to get a definitive answer from the [place] [facility] that patient did not meet eligibility criteria for [place] admission. Thus patient is discharged home with new set up for oxygen. Hospital staff spent a great deal of time reviewing her concerns about the oxygen use in the home. They expressed how to properly use the oxygen. They provided with her information regarding whom to call should she have additional questions when she does right home. She lives alone. Has friends and family that are supportive. Patient was agreeable to above stated plans and recommendations.
--- NOTE | 2022-06-02 14:17 | P.IMPN_ITS ---
Progress Note: A&P Assessment and plan (1) Chronic anticoagulation: Problem details: paroxysmal a fib and h/o PE x 2 Status: Chronic Assessment and Plan: INR 2.8 last night and 4.1 this morning. Increase likely due to Levaquin (2) Acute on chronic respiratory failure with hypoxia: Problem details: Multifactorial secondary to interstitial lung disease and possibly exacerbation of diastolic heart failure. Status: Acute Assessment and Plan: on BiPAP. 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 During that hospitalization she had an increase in her prednisone. It was felt possibly that decreasing her prednisone prior to this admission was a trigger for her worsening respiratory status as it had been in the past. She did receive some diuresis because of concern about heart failure. That was not effective in improving her respiratory status. She was not treated with antibiotics. She was discharged May 30 on home oxygen, a new prescription for her. Over the weekend she got much worse. She was not able to maintain her oxygen saturations on 3 L per nasal cannula. At the time of admission she was found to be severely hypoxic and placed on BiPAP. She received Solu-Medrol 125 mg IV. Overnight she received furosemide 40 mg IV x3 doses. She was also started on Levaquin. Overnight she has had no clinical improvement. I spoke with Dr. Hoyt, her development consultant, and the decision was made to transfer her to [facility] for ICU care and and probable bronchoscopy. See discharge for other details of recent hospital stay, current hospital care and transfer plan examination: She is alert in no obvious distress with BiPAP mask. BiPAP settings at 60% FiO2 And pressures of 8/4. O2 sat is 90%. She has somewhat diminished breath sounds and diffuse crackles. Cardiovascular: S1, S2, regular rate and rhythm. 2/6 systolic murmur. Abdomen is soft with diffuse tenderness which she reports is unchanged from chronic abdominal tenderness. Extremities without any edema. intact peripheral pulses. Const: Vital Signs, click to edit/add: Vital Signs - 24 hr 06/01/22 14:23 06/01/22 16:05 06/01/22 16:37 Temperature 98.8 F Pulse Rate Pulse Rate [Right Pulse Oximeter] 109 H Pulse Rate [Right Radial] 106 H Respiratory Rate 48 H 40 H Blood Pressure [Ri ght Arm] 128/60 Pulse Oximetry 10 L 91 88 06/01/22 17:45 06/01/22 18:41 06/01/22 19:27 Temperature Pulse Rate 95 Pulse Rate [Right Pulse Oximeter] Pulse Rate [Right Radial] Respiratory Rate 37 H 37 H Blood Pressure [Ri ght Arm] Pulse Oximetry 91 91 06/01/22 23:00 06/01/22 23:24 06/02/22 00:15 Temperature 97 F L Pulse Rate 77 Pulse Rate [Right Pulse Oximeter] Pulse Rate [Right Radial] 88 Respiratory Rate 24 24 Blood Pressure [Ri ght Arm] 96/50 L Pulse Oximetry 90 90 06/02/22 04:45 06/02/22 07:35 06/02/22 07:42 Temperature 97.2 F L Pulse Rate Pulse Rate [Right Pulse Oximeter] Pulse Rate [Right Radial] 68 73 Respiratory Rate 26 H 36 H 28 H Blood Pressure [Ri ght Arm] 139/57 L Pulse Oximetry 91 90 06/02/22 08:28 06/02/22 08:40 06/02/22 11:57 Temperature 97 F L 97 F L Pulse Rate 75 Pulse Rate [Right Pulse Oximeter] Pulse Rate [Right Radial] 74 Respiratory Rate 36 H 27 H Blood Pressure [Ri ght Arm] 113/64 114/61 Pulse Oximetry 91 90 Documenting provider has reviewed patient's vital signs: yes Labs Labs: Laboratory Results - last 24 hr 06/01/22 06/01/22 06/01/22 13:50 15:24 15:24 WBC 18.04 H RBC 3.64 L Hgb 11.0 L Hct 34.0 MCV 93 MCH 30 MCHC 32 RDW Coeff of Faustino 13.3 Plt Count 343 Neut % (Auto) 85.6 H Lymph % (Auto) 5.0 L [place] % (Auto) 6.9 Eos % (Auto) 0.2 Baso % (Auto) 0.2 Neut # (Auto) 15.40 H Lymph # (Auto) 0.90 [place] # (Auto) 1.20 H Eos # (Auto) 0.00 Baso # (Auto) 0.00 Abs Immat Gran (auto) 0.38 H INR 2.86 H VBG pH VBG pCO2 VBG pO2 VBG HCO3 Sodium Potassium Chloride Carbon Dioxide BUN Creatinine Estimated Creat Clear Glucose Lactate Calcium Troponin I NT-Pro-B Natriuret Pep SARS-CoV-2 (PCR) Negative SARS-CoV-2 06/01/22 06/01/22 06/02/22 15:24 15:24 06:20 WBC 13.72 H RBC 3.65 L Hgb 11.0 L Hct 33.9 MCV 93 MCH 30 MCHC 32 RDW Coeff of Faustino 13.1 Plt Count 339 Neut % (Auto) 90.5 H Lymph % (Auto) 6.6 L [place] % (Auto) 2.1 Eos % (Auto) 0.0 Baso % (Auto) 0.1 Neut # (Auto) 12.40 H Lymph # (Auto) 0.90 [place] # (Auto) 0.30 Eos # (Auto) 0.00 Baso # (Auto) 0.00 Abs Immat Gran (auto) 0.09 INR VBG pH 7.386 VBG pCO2 41 VBG pO2 23.5 L VBG HCO3 25 Sodium 134 L Potassium 4.8 Chloride 103 Carbon Dioxide 26 BUN 32 H Creatinine 1.4 Estimated Creat Clear Glucose 111 Lactate 1.7 Calcium 9.2 Troponin I < 0.01 L NT-Pro-B Natriuret Pep 497 H SARS-CoV-2 (PCR) 06/02/22 06/02/22 06:20 06:20 WBC RBC Hgb Hct MCV MCH MCHC RDW Coeff of Faustino Plt Count Neut % (Auto) Lymph % (Auto) [place] % (Auto) Eos % (Auto) Baso % (Auto) Neut # (Auto) Lymph # (Auto) [place] # (Auto) Eos # (Auto) Baso # (Auto) Abs Immat Gran (auto) INR 4.15 H VBG pH VBG pCO2 VBG pO2 VBG HCO3 Sodium 137 Potassium 4.8 Chloride 102 Carbon Dioxide 24 BUN 42 H Creatinine 1.6 H Estimated Creat Clear 20.81 Glucose 114 Lactate Calcium 9.7 Troponin I NT-Pro-B Natriuret Pep SARS-CoV-2 (PCR)
--- NOTE | 2022-06-02 14:46 | RESP.RT ---
PT on BIPAP al day. Does not tolerate being off, she experiences profound desaturation immediately. Provider aware. Settings 60%, 8/4cwp. RR 24-36, VT running around 400CC. Supporting at this time, provider consulting her bologna maker.
[2022-06-02 14:59] LABS: Procalcitonin* 2.31 ng/mL (<0.50)
--- NOTE | 2022-06-02 16:52 | PC.NURSE ---
Pt on Bipap with O2 sat 80-91%, desat to 78% on NC Oxymizer at 6L. C/o pain in Abd only when pushing lightly on Abd, denies pain after palpating is done. Pt able to stand and pivot only and RR increases to 24-55. Pt has updated Yazmin neighbor via text. Report given to Ed at untied [phone], going to 3900/20 intensive care. See MAR for Lasix IV , prednisone, and Levaquin given.
== END 2022-06-02 16:34 | disposition other institution (70) | DRG 196 ==
LOC: ED 14:40 → MEDSURG 06-02 12:33
PROVIDERS: Family Medicine; Admitting Provider Family Medicine; Emergency Provider Family Medicine; PCP Family Medicine; Visit Provider Family Medicine
DX: J84.89 Other specified interstitial pulmonary diseases (principal); J96.21 Acute and chronic respiratory failure with hypoxia; I50.33 Acute on chronic diastolic (congestive) heart failure; J15.9 Unspecified bacterial pneumonia; I13.0 Hypertensive heart and chronic kidney disease with heart failure and stage 1 through stage 4 chronic kidney disease, or unspecified chronic kidney disease; I43 Cardiomyopathy in diseases classified elsewhere; N18.32 Chronic kidney disease, stage 3b; J44.9 Chronic obstructive pulmonary disease, unspecified; I35.0 Nonrheumatic aortic (valve) stenosis; D71 Functional disorders of polymorphonuclear neutrophils; I48.0 Paroxysmal atrial fibrillation; Z79.52 Long term (current) use of systemic steroids; M81.0 Age-related osteoporosis without current pathological fracture; Z86.711 Personal history of pulmonary embolism; Z79.01 Long term (current) use of anticoagulants; M51.36 Other intervertebral disc degeneration, lumbar region; M48.061 Spinal stenosis, lumbar region without neurogenic claudication; D50.9 Iron deficiency anemia, unspecified; K59.00 Constipation, unspecified; E03.9 Hypothyroidism, unspecified
CPT/HCPCS: 36415; 71045; 80048; 82803; 83605; 83880; 84145; 84484; 85025; 85610; 87635; 93005; 94640; 94660; 94664; 94761; 99284; 99285; A9270; J1940; J2930; J7512

== ENCOUNTER 2022-06-02 16:12 | Outpatient (CLI) | payer OTHER, SELFPAY | END 2022-06-02 16:13 | disposition home or self-care (01) | PROVIDERS: PCP Family Medicine; Visit Provider Emergency Medicine Emergency Medical Services | DX: R06.03 Acute respiratory distress (principal) | CPT/HCPCS: A0425; A0427 ==